=== PATIENT | female | born 1965 | race Caucasian/White ===

== ENCOUNTER 2024-03-05 16:39 | Emergency (ER) | payer OTHER, SELFPAY ==
[2024-03-05 16:46] VITALS: BP 131/83
--- NOTE | 2024-03-05 22:33 | ED.GENMED ---
History of Present Illness
General
Chief Complaint: Musculo-Skeletal Complaint
Source: patient
Time Seen by Provider: 03/05/24 22:13
Travel History
Have you had any contact with someone who has COVID-19?: No
Do you have any symptoms of coronavirus? Fever > 100 degrees, chills, cough, shortness of breath, sore throat, loss of taste or smell, muscle aches, or headache?: No
History of Present Illness
History of Present Illness:
58-year-old female presenting the emergency department for evaluation of bilateral wrist injuries after she tripped on a dog toy onto outstretched hands. Patient states her left wrist is hurting her the most but notes pain and swelling as well as
bruising to the right thumb. Patient is right-hand dominant, no other injuries were sustained.
Past History
Past History
ED Past Medical History: COPD, Hypercholesterolemia and Other (Chronic)
ED Past Surgical History: Orthopedic
Social History
Tobacco: Smoker
Alcohol: Occasional
Drug: None
Living: with family
Review of Systems
Review of Systems
All Other Systems: ROS reviewed and negative except as documented in HPI and ROS
Phy Exam
Physical Exam
Physical Exam:
GENERAL: Alert , in no apparent distress
EYE: conjunctiva clear
Head: Normocephalic atraumatic
NECK: Supple,
ENT: mmm.
LUNGS: no acute respiratory distress
NEUROLOGICAL: Alert and oriented
SKIN: Warm and dry, skin intact.
MUSCULOSKELETAL: Right upper extremity: Pain, edema and ecchymosis towards the thenar eminence and over the anatomical snuffbox. No tenderness over the distal radius/ulna. Easily palpable radial pulse. Cap refill less than 2 seconds. Remainder
of right upper extremities within normal limits. Upper extremity: Deformity over the distal radius but patient also has tenderness over the distal ulna. Easily palpable radial pulse. Cap refill less than 2 seconds and sensation is grossly intact
to light touch. Remainder of extremities with limits.
PSYCH: Normal and appropriate interaction.
Scores
Heart Failure Risk
Heart Failure Risk Score: Not Applicable
Heart Score for Chest Pain Patients
STEMI patient?: Not applicable
Withdrawal Assessment of Alcohol
Withdrawal Assessment Completed?: Not applicable
Course
Orders/Labs/Results
Orders:
Orders
03/05/24 16:48
CR Wrist - Left Min 3 Views Urgent
Comment:
Reason For Exam: injury with deformity
CR Wrist - Right Min 3 Views Urgent
Comment:
Reason For Exam: injury
Vital Signs
Initial and Last Documented VS:
Initial Vital Signs
Temp Pulse Resp BP Pulse Ox
97.7 F 71 16 131/83 96
03/05/24 16:46 03/05/24 16:46 03/05/24 16:46 03/05/24 16:46 03/05/24 16:46
Last Documented Vital Signs
Temp Pulse Resp BP Pulse Ox
97.7 F 71 16 131/83 96
03/05/24 16:46 03/05/24 16:46 03/05/24 16:46 03/05/24 16:46 03/05/24 16:46
Procedures
Splinting/Sling Placement
Right Wrist:
Procedure completed by: Ankur
Pre-splint extermity exam: neurovascular intact
Type of splint: thumb spica
Splint material: other (2 inch Ortho-Glass)
Splint checked by provider?: Yes
Normal distal neurovascular exam?: Yes
Left Wrist:
Procedure completed by: Ankur
Pre-splint extermity exam: neurovascular intact
Type of splint: volar
Splint material: other (3 inch Ortho-Glass)
Splint checked by provider?: Yes
Normal distal neurovascular exam?: Yes
MDM/Problems Addressed
Differential Diagnosis Includes:
Scaphoid fracture, radius and ulnar fracture, sprain, contusion
MDM/Problems Addressed:
58-year-old female presenting the emergency department for evaluation of bilateral hand/wrist injuries and an accidental fall. X-rays were ordered from triage and reveal a right scaphoid fracture and a left distal radius and ulnar fracture.
Patient was placed in a thumb spica and a volar wrist splint. She was provided with information for orthopedics. She declines anything for pain. Stable for discharge and aware of return precautions.
*Radiology
Radiology exam reviewed: preliminary read by ED provider (Right scaphoid fracture, left radius and ulna fracture)
*Pulse Oximetry
Patient hypoxic: no
*Critical Care Note
Total Time (30-74mins, 75-104mins- exclusive of procedures): Not Applicable
ED Attending Note
-
Portions of this chart may have been created with voice recognition software.� Occasional wrong word or��sound alike� substitutions may have occurred due to the inherent limitations of voice recognition software.
Discharge Plan
Departure
Patient Disposition: Home (Routine Discharge)
Date of Disposition: 03/05/24
Time of Disposition: 22:33
Patient with high blood pressure during this ER visit?: No
Discharge Problem:
Closed nondisplaced fracture of scaphoid of right wrist, Distal radius fracture, left, Nondisplaced fracture of styloid process of left ulna
Instructions: Wrist Fracture (DC)
Referrals:
Sony Kelley MD [Active] - (Ortho - Please call for appointment)
Interventions
Interventions:
*Risk Screen - Suicide Last Done: 03/05/24 22:38
*General Assessment Last Done: 03/05/24 22:38
*Neglect/Abuse Screening Last Done: 03/05/24 22:38
*ED COVID-19 Vaccine History Last Done: 03/05/24 22:38
*Nursing Disposition Last Done: 03/05/24 22:43
ED-Musculoskeletal Assessment Last Done: 03/05/24 22:38
Discharge Date and Time
Discharge Date/Time: 03/05/24 22:53
Print Language: TOGOLESE
== END 2024-03-05 22:53 | disposition home or self-care (01) ==
LOC: EMR 16:39
PROVIDERS: EMERGENCY PHYSICIAN Student in an Organized Health Care Education/Training Program; FAMILY PHYSICIAN Family Medicine
DX: S52.501A Unspecified fracture of the lower end of right radius, initial encounter for closed fracture (principal); S52.592A Other fractures of lower end of left radius, initial encounter for closed fracture; S62.001A Unspecified fracture of navicular [scaphoid] bone of right wrist, initial encounter for closed fracture; S52.615A Nondisplaced fracture of left ulna styloid process, initial encounter for closed fracture; W01.0XXA Fall on same level from slipping, tripping and stumbling without subsequent striking against object, initial encounter; F17.200 Nicotine dependence, unspecified, uncomplicated
CPT/HCPCS: 99283; 29125; 73110

== ENCOUNTER 2024-04-30 20:52 | Emergency (ER) | payer OTHER, SELFPAY ==
[2024-04-30 20:54] VITALS: BP 149/83
[2024-04-30 22:19] VITALS: BP 132/82
[2024-04-30 22:25] LABS: % Basophils 0.4 % (0-2); % Eosinophils 0.1 % (0-6); % Immature Granulocytes 0.3 % (0-0.5); % Lymphocytes 38.5 % (20.5-51.1); % Monocytes 4.2 % (1.7-9.3); % Neutrophils 56.5 % (42.2-75.2); Absolute Monocytes 0.3 10^3/uL (0.1-0.6); Absolute Neutrophils 4.4 10^3/uL (1.4-6.5); Hematocrit 39.8 % (37.0-47.0); Hemoglobin 14.3 g/dL (12.0-16.0); Mean Corp Hgb Conc. 35.9 g/dL (33.0-37.0); Mean Corpuscular Hgb 30.8 pg (27.0-31.0); Mean Corpuscular Volume 85.8 fL (81.0-99.0); Nucleated Red Blood Cells % 0 %; Red Blood Cell Count 4.64 10^6/uL (4.20-5.40); Red Cell Dist. Width 14.6 % (11.5-14.5); White Blood Cell Count 7.9 10^3/uL (4.8-10.8)
[2024-04-30 22:37] LABS: ALT (SGPT) 22 U/L (0-35); AST (SGOT) 50 U/L (14-36); Albumin 4.5 g/dl (3.5-5.0); Alkaline Phosphatase 134 U/L (38-126); Blood Urea Nitrogen 7 mg/dl (7-17); Calcium 9.6 mg/dl (8.4-10.2); Carbon Dioxide 22 mmol/L (22-30); Chloride 103 mmol/L (98-107); Glucose 115 mg/dl (70-99); Potassium 3.3 mmol/L (3.5-5.1); Sodium 139 mmol/L (135-145); Total Bilirubin 1.6 mg/dl (0.2-1.3); Total Protein 7.3 g/dl (6.3-8.2); eGFR > 60.00
[2024-04-30 22:38] LABS: Mean Platelet Volume 9.1 fL (7.4-10.4); Platelet Count 91 10^3/uL (130-400)
--- NOTE | 2024-04-30 23:22 | ED.GENMED ---
History of Present Illness
General
Chief Complaint: Medication Reaction
Source: patient
Exam Limitations: none
Time Seen by Provider: 04/30/24 22:46
History of Present Illness
History of Present Illness:
This is a 58 year old female that comes in with c/o headache and dizziness. States that she stopped taking her Seroquel and Venlafaxine 2 days ago on Saturday. States that she stopped them as she feels they are not working. States that her last dose
was on Saturday night. States that she is depressed as she lost her . Denies any suicidal thoughts. States that she has been nauseated, headache and dizziness. Denies any fever, chills, chest pain, SOB, abd pain, vomiting, diarrhea, urinary
burning.
Past History
Past History
ED Past Medical History: COPD, Hypercholesterolemia and Other (Neuropathy, Back pain)
ED Past Surgical History: Gynecological (Cone cervical surgery), Orthopedic (Back surgery, Right foot surgery) and Other (Nasal surgery, )
Social History
Tobacco: Smoker
Alcohol: None
Drug: None
Personal:
Living: alone
Review of Systems
Review of Systems
All Other Systems: ROS reviewed and negative except as documented in HPI and ROS
Constitutional: Reports no symptoms; Denies fever or chills
EENT: Reports no symptoms
Respiratory: Reports no symptoms; Denies cough or trouble breathing
Cardiac: Reports no symptoms; Denies chest pain
ABD/GI: Reports nausea; Denies abdominal pain, vomiting or diarrhea
: Reports no symptoms; Denies dysuria, frequency or urgency
Musculoskeletal: Reports no symptoms
Skin: Reports no symptoms
Neurological: Reports dizzy and headache
Psychiatric: Reports no symptoms
Phy Exam
General Physical Exam
General Presentation: no apparent distress
General age: appears stated age
General Skin: warm and dry
General Habitus: normal
General Mental: alert
General Hydration: appears well hydrated
ENT Exam
ENT Exam: TM's normal, pharynx normal and neck supple
Eye Exam
Eye Exam: EOMI
Cardiovascular Exam
Cardiovascular Exam: regular rate/rhythm, no edema and normal peripheral pulses
Pulmonary Exam
Pulmonary Exam: lungs clear, no respiratory distress, no rales, chest non tender, no crackles, no rhonchi, no wheezing and no cough
Gastrointestinal Exam
Gastrointestinal Exam: normal bowel sounds, non tender, soft, no organomegaly, no pulsatile mass and non distended
Musculoskeletal Exam
Musculoskeletal Exam: full ROM and no edema
Skin Exam
Skin Exam: normal color, warm/dry, no petechia and redness (On the right lower leg due to new tattoo Left is warm to touch)
Psychiatric Exam
Psychiatric Exam: normal mood/affect
Course
Orders/Labs/Results
Orders:
Orders
04/30/24 22:09
Electrocardiogram (*1) Urgent
Reason for Study: Vertigo / Dizzy
EKG- Treatment ONCE
04/30/24 22:10
Complete Blood Count/With Diff Urgent
Comprehensive Metabolic Panel Urgent
04/30/24 23:21
CT Head W/o Iv Contrast Urgent
Comment:
Reason For Exam: Headache, dizziness
Acetaminophen [Tylenol] 1,000 mg PO NOW STA
Ketorolac [Toradol] 30 mg IV NOW STA
04/30/24 23:23
Cephalexin Monohydrate [Keflex] 500 mg PO NOW STA
Abnormal Lab Results
04/30/24
22:10
RDW 14.6 H %
(11.5-14.5)
Plt Count 91 L 10^3/uL
(130-400)
Potassium 3.3 L mmol/L
(3.5-5.1)
Glucose 115 H mg/dl
(70-99)
Total Bilirubin 1.6 H mg/dl
(0.2-1.3)
AST 50 H U/L
(14-36)
Alkaline Phosphatase 134 H U/L
(38-126)
04/30/24 22:10
04/30/24 22:10
Plt slightly low. Glucose nonfasting. Hypokalemia, Total alfredito slightly elevated. AST elevation. ALk phos slightly elevated.
Vital Signs
Initial and Last Documented VS:
Initial Vital Signs
Temp Pulse Resp BP Pulse Ox
98.1 F 98 16 149/83 98
04/30/24 20:54 04/30/24 20:54 04/30/24 20:54 04/30/24 20:54 04/30/24 20:54
Last Documented Vital Signs
Temp Pulse Resp BP Pulse Ox
98.1 F 75 16 132/82 98
04/30/24 20:54 04/30/24 22:19 04/30/24 22:19 04/30/24 22:19 04/30/24 22:19
MDM/Problems Addressed
Differential Diagnosis Includes:
Medication reaction. CVA,
MDM/Problems Addressed:
This is a 58 year old female that comes in with c/o stopping her medication on Saturday. states that her last dose was on Saturday night. states that she stopped them as she did not feel that they were working.
Will check labs, CT head and medicate for headache pain.
back into see patient. Explained that her CT of the head is normal. Blood work shows that her Potassium is slightly low so will give dose of Potassium and encouraged patient to eat some banana's. Patient to follow up with the her Psychiatrist for
further evaluation and to discussed her medication. Will also give patient a Prescription for Keflex to help with the redness of the right lower leg. Patient to return with fever, increased redness or any other concerns.
Chronic conditions affecting care: Psychiatric illness
Acute Exacerbation and/or Progression of Chronic Illness: Psychiatric illness
*Radiology
Radiology exam reviewed: radiology read reviewed (Head CT- No evidence for acute intracranial process. Mild left mastoid air cell opacity. )
*Pulse Oximetry
Patient hypoxic: no
*EKG
Interpreted by ED Provider?: NA
Rate: EKG- N/A
*Meat Team Lead Interpretation
Rate: Meat Team Lead- N/A
*Critical Care Note
Total Time (30-74mins, 75-104mins- exclusive of procedures): Not Applicable
ED Attending Note
-
Portions of this chart may have been created with voice recognition software.� Occasional wrong word or��sound alike� substitutions may have occurred due to the inherent limitations of voice recognition software.
Discharge Plan
Departure
Patient Disposition: Home (Routine Discharge)
Date of Disposition: 05/01/24
Time of Disposition: 01:21
Patient with high blood pressure during this ER visit?: Yes
Condition: Good
Covid-19: Not Applicable
Discharge Problem:
Headache, Cellulitis
Instructions: Headache, Adult ED, Cellulitis (Skin Infection), Adult ED, BLOOD PRESSURE
Prescriptions:
New
cephalexin 500 mg capsule
500 mg PO BID 7 Days Qty: 14 0RF
Referrals:
Abe Davis, [Family Provider] - Follow up in 2-3 days
Activity Restrictions/Additional Instructions:
As discussed, your CT of the head is normal. Your blood work shows that your potassium is a little low. You have been given potassium here and you need to eat a banana daily. Please follow up with the your family doctor and your Psychiatrist and
discuss your Medication change. Please increase your water intake to 8-8oz glasses daily. You have also been given a prescription for the slight Cellulitis of the right lower leg. This has been sent to your Pharmacy. Please take as directed. IF YOU
HAVE ANY OTHER CONCERNS PLEASE RETURN TO THE EMERGENCY ROOM.
Interventions
Interventions:
*General Assessment Last Done: 04/30/24 20:54
ED-Skin Assessment Last Done: 04/30/24 22:19
ED- Pulmonary Assessment Last Done: 04/30/24 22:19
ED-EENT Assessment Last Done: 04/30/24 22:19
Discharge Date and Time
Print Language: CHADIAN
[2024-05-01] MEDS: TORADOL 30 MG IV (00:08)
[2024-05-01] MEDS: TYLENOL 1000 MG PO (00:09)
[2024-05-01] MEDS: KEFLEX 500 MG PO (00:09)
[2024-05-01] MEDS: KLOR-CON 20 MEQ PO (01:29)
[2024-05-01 01:30] VITALS: BP 117/73
== END 2024-05-01 01:37 | disposition home or self-care (01) ==
LOC: EMR 20:52
PROVIDERS: Emergency Medicine; EMERGENCY PHYSICIAN Emergency Medicine; FAMILY PHYSICIAN Family Medicine
DX: R51.9 Headache, unspecified (principal); R42 Dizziness and giddiness; R11.0 Nausea; L03.115 Cellulitis of right lower limb; R03.0 Elevated blood-pressure reading, without diagnosis of hypertension; E87.6 Hypokalemia; J44.9 Chronic obstructive pulmonary disease, unspecified; Z91.128 Patient's intentional underdosing of medication regimen for other reason; G62.9 Polyneuropathy, unspecified; E78.00 Pure hypercholesterolemia, unspecified; Z63.4 Disappearance and death of family member; F32.A Depression, unspecified; F17.200 Nicotine dependence, unspecified, uncomplicated
CPT/HCPCS: 99284; 96374; 70450; 80053; 85025; 93005

== ENCOUNTER 2024-06-29 22:56 | Emergency (ER) | payer OTHER, SELFPAY ==
[2024-06-29 22:58] VITALS: BP 144/88
[2024-06-30] VITALS (10 sets, daily range): BP systolic 88–136; BP diastolic 49–86; BMI 22.0
[2024-06-30 02:00] LABS: % Basophils 0.8 % (0-2); % Eosinophils 0.2 % (0-6); % Immature Granulocytes 0.3 % (0-0.5); % Lymphocytes 45.3 % (20.5-51.1); % Monocytes 7.3 % (1.7-9.3); % Neutrophils 46.1 % (42.2-75.2); Absolute Basophils 0.1 10^3/uL (0-0.2); Absolute Lymphocytes 2.9 10^3/uL (1.2-3.4); Absolute Monocytes 0.5 10^3/uL (0.1-0.6); Hematocrit 42.1 % (37.0-47.0); Hemoglobin 15.1 g/dL (12.0-16.0); Mean Corp Hgb Conc. 35.9 g/dL (33.0-37.0); Mean Corpuscular Hgb 31.5 pg (27.0-31.0); Mean Corpuscular Volume 87.7 fL (81.0-99.0); Mean Platelet Volume 9.9 fL (7.4-10.4); Nucleated Red Blood Cells % 0 %; Platelet Count 85 10^3/uL (130-400); Red Cell Dist. Width 16.9 % (11.5-14.5); White Blood Cell Count 6.5 10^3/uL (4.8-10.8)
[2024-06-30 02:05] LABS: Blood Urea Nitrogen 12 mg/dl (7-17); Calcium 8.7 mg/dl (8.4-10.2); Carbon Dioxide 19 mmol/L (22-30); Chloride 107 mmol/L (98-107); Estimated Creatinine Clearance 121 ml/min; Glucose 104 mg/dl (70-99); Sodium 144 mmol/L (135-145); eGFR > 60.00
[2024-06-30 02:09] LABS: Alcohol 381 mg/dl
[2024-06-30] MEDS: NSS 1000 IV (02:20)
[2024-06-30] MEDS: TYLENOL 1000 MG PO (02:34)
--- NOTE | 2024-06-30 02:39 | ED.GENMED ---
History of Present Illness
<Eusebio Ba MD - Last Filed: 06/30/24 02:41>
General
Chief Complaint: Alcohol Problem
Source: patient
Exam Limitations: none
Time Seen by Provider: 06/30/24 02:05
History of Present Illness
History of Present Illness:
Patient called the police to bring her in for help for her depression and alcohol use. Chronic alcohol issues. Has required help in the past. States she she is very depressed and sees no reason to live although she has no plan or intent at this
time. She states she would not kill herself. No acute withdrawal symptoms. Drinks about 1/5 of vodka a day
Past History
<Eusebio Ba MD - Last Filed: 06/30/24 02:41>
Past History
ED Past Medical History: COPD, Hypercholesterolemia and Other (Neuropathy, Back pain)
ED Past Surgical History: Gynecological (Cone cervical surgery), Orthopedic (Back surgery, Right foot surgery) and Other (Nasal surgery, )
Social History
Tobacco: Smoker
Alcohol: None
Drug: None
Personal:
Living: alone
Review of Systems
<Eusebio Ba MD - Last Filed: 06/30/24 02:41>
Review of Systems
All Other Systems: Not applicable
Respiratory: Reports no symptoms
Cardiac: Reports no symptoms
Phy Exam
<Eusebio Ba MD - Last Filed: 06/30/24 02:41>
Physical Exam
Physical Exam:
GENERAL: Alert and oriented in no apparent distress. Mildly intoxicated. No trauma
EYE: Orbits normal.
NECK: Supple
CARDIAC: Regular rate and rhythm without any obvious murmurs.
LUNGS: Clear breath sounds,normal
ABDOMEN: Soft, without focal tenderness or distention
NEUROLOGICAL: Alert and oriented , grossly non-focal. Mildly intoxicated
SKIN: Warm and dry, no rash or lesion, no discoloration, skin intact.
MUSCULOSKELETAL: No edema,no deformity.Good color
PSYCH: Normal and appropriate interaction. Cooperative
Scores
<Spencer Bernard DO - Last Filed: 06/30/24 06:09>
Withdrawal Assessment of Alcohol
Withdrawal Assessment Completed?: No
Course
<Eusebio Ba MD - Last Filed: 06/30/24 02:41>
Orders/Labs/Results
Orders:
Orders
06/29/24 23:03
Alcohol Urgent
Complete Blood Count/With Diff Urgent
06/30/24 01:40
Basic Metabolic Panel Urgent
Comment: NO K
06/30/24 02:12
0.9% Sodium Chloride 1000 ml [Nss] 1,000 ml IV BOLUS
06/30/24 02:13
Crisis Consult Urgent
Reason for Consult: depression/etoh alcohol
06/30/24 02:33
Acetaminophen [Tylenol] 1,000 mg .ROUTE .STK-MED ONE
Acetaminophen [Tylenol] 1,000 mg PO NOW STA
06/30/24 04:05
Ketorolac [Toradol] 30 mg IV NOW STA
Abnormal Lab Results
06/30/24
01:40
MCH 31.5 H pg
(27.0-31.0)
RDW 16.9 H %
(11.5-14.5)
Plt Count 85 L 10^3/uL
(130-400)
Carbon Dioxide 19 L mmol/L
(22-30)
Glucose 104 H mg/dl
(70-99)
06/30/24 01:40
06/30/24 01:40
Vital Signs
Initial and Last Documented VS:
Initial Vital Signs
Temp Pulse Resp BP Pulse Ox
98.1 F 94 22 144/88 97
06/29/24 22:58 06/29/24 22:58 06/29/24 22:58 06/29/24 22:58 06/29/24 22:58
Last Documented Vital Signs
Temp Pulse Resp BP Pulse Ox
97.9 F 69 18 101/57 93
06/30/24 02:17 06/30/24 05:04 06/30/24 05:04 06/30/24 05:04 06/30/24 04:00
<Spencer Bernard, DO - Last Filed: 06/30/24 06:09>
Orders/Labs/Results
Orders:
Orders
06/29/24 23:03
Alcohol Urgent
Complete Blood Count/With Diff Urgent
06/30/24 01:40
Basic Metabolic Panel Urgent
Comment: NO K
06/30/24 02:12
0.9% Sodium Chloride 1000 ml [Nss] 1,000 ml IV BOLUS
06/30/24 02:13
Crisis Consult Urgent
Reason for Consult: depression/etoh alcohol
06/30/24 02:33
Acetaminophen [Tylenol] 1,000 mg .ROUTE .STK-MED ONE
Acetaminophen [Tylenol] 1,000 mg PO NOW STA
06/30/24 04:05
Ketorolac [Toradol] 30 mg IV NOW STA
Abnormal Lab Results
06/30/24
01:40
MCH 31.5 H pg
(27.0-31.0)
RDW 16.9 H %
(11.5-14.5)
Plt Count 85 L 10^3/uL
(130-400)
Carbon Dioxide 19 L mmol/L
(22-30)
Glucose 104 H mg/dl
(70-99)
06/30/24 01:40
06/30/24 01:40
Vital Signs
Initial and Last Documented VS:
Initial Vital Signs
Temp Pulse Resp BP Pulse Ox
98.1 F 94 22 144/88 97
06/29/24 22:58 06/29/24 22:58 06/29/24 22:58 06/29/24 22:58 06/29/24 22:58
Last Documented Vital Signs
Temp Pulse Resp BP Pulse Ox
97.9 F 69 18 101/57 93
06/30/24 02:17 06/30/24 05:04 06/30/24 05:04 06/30/24 05:04 06/30/24 04:00
<Eusebio Ba MD - Last Filed: 06/30/24 02:41>
MDM/Problems Addressed
Differential Diagnosis Includes:
Patient chronic alcohol abuse along with depression. Not currently suicidal and has no intent or plan. Will give IV fluids. Referred over to crisis. 201 at this time. No indication for psychiatric committal at this time
<Eusebio Ba MD - Last Filed: 06/30/24 02:41>
*Pulse Oximetry
Patient hypoxic: no
<Spencer Bernard DO - Last Filed: 06/30/24 06:09>
*Critical Care Note
Total Time (30-74mins, 75-104mins- exclusive of procedures): Not Applicable
<Spencer Bernard DO - Last Filed: 06/30/24 06:09>
Update Note
Update Note:
6 AM, reviewed with crisis patient accepted to [facility] at 10 AM pickup
ED Attending Note
<Eusebio Ba MD - Last Filed: 06/30/24 02:41>
-
Portions of this chart may have been created with voice recognition software.� Occasional wrong word or��sound alike� substitutions may have occurred due to the inherent limitations of voice recognition software.
Discharge Plan
Departure
Patient Disposition: Psych Facility
Date of Disposition: 06/30/24
Time of Disposition: 06:09
Patient with high blood pressure during this ER visit?: No
Condition: Good
Discharge Problem:
Depression/alcohol use disorder
Prescriptions:
No Action
cephalexin 500 mg capsule
500 mg PO BID 7 Days Qty: 14 0RF
Referrals:
Abe Davis DO [Family Provider] -
Interventions
Interventions:
*Risk Screen - Suicide Last Done: 06/29/24 22:58
*General Assessment Last Done: 06/30/24 01:47
*Neglect/Abuse Screening Last Done: 06/29/24 22:58
*ED COVID-19 Vaccine History Last Done: 06/30/24 01:47
ED- Neurological Assessment Last Done: 06/30/24 01:47
ED-Psychological Assessment Last Done: 06/30/24 01:47
Discharge Date and Time
Print Language: CROATIAN
[2024-06-30] MEDS: TORADOL 30 MG IV (04:11)
[2024-06-30] MEDS: ZOFRAN ODT (ORALLY DISINTEGRATING) 4 MG PO (08:48)
[2024-06-30] MEDS: LYRICA 100 MG PO (10:02)
== END 2024-06-30 10:43 ==
LOC: EMR 22:56
PROVIDERS: EMERGENCY PHYSICIAN Emergency Medicine; FAMILY PHYSICIAN Family Medicine
DX: F10.10 Alcohol abuse, uncomplicated (principal); F32.A Depression, unspecified; J44.9 Chronic obstructive pulmonary disease, unspecified; E78.00 Pure hypercholesterolemia, unspecified; G62.9 Polyneuropathy, unspecified; M54.9 Dorsalgia, unspecified; F17.200 Nicotine dependence, unspecified, uncomplicated
CPT/HCPCS: 99285; 96374; 96361; 80048; 82077; 85025

== ENCOUNTER 2025-10-17 23:10 | Inpatient (IN) | payer MEDICARE, OTHER, SELFPAY ==
[2025-10-17] VITALS (7 sets, daily range): BP systolic 94–133; BP diastolic 66–81; BMI 22.4
[2025-10-17 19:34] LABS: Hematocrit 46.0 % (37.0-47.0); Hemoglobin 16.3 g/dL (12.0-16.0); Mean Corp Hgb Conc. 35.4 g/dL (33.0-37.0); Mean Corpuscular Volume 89.1 fL (81.0-99.0); Nucleated Red Blood Cells % 0.2 %; Platelet Count 193 10^3/uL (130-400); Red Cell Dist. Width 16.1 % (11.5-14.5)
[2025-10-17 19:36] LABS: INR 1.60; PT 19.2 Sec (11.4-14.6)
[2025-10-17 19:42] LABS: COVID-19 Antigen Negative (Negative)
--- NOTE | 2025-10-17 19:46 | ED.GENMED ---
History of Present Illness
<Hanane Lee NP - Last Filed: 10/18/25 00:27>
General
Chief Complaint: Cold/Flu/URI Symptoms
Source: patient
Exam Limitations: none
Time Seen by Provider: 10/17/25 19:01
Nursing documentation reviewed up to this point in time: agreed with
History of Present Illness
History of Present Illness:
Patient to the emergency department with complaint of nausea vomiting abdominal pain. Symptoms started 1 to 2 days ago. She reports epigastric pain, increased after vomiting. She denies any shortness of breath. She denies any prior history of
same. She was brought to the emergency department via EMS for evaluation. She denies fever or chills. She denies any sick contacts. She has a history of alcohol abuse. Her last drink was Saturday.
Past History
<Hanane Lee NP - Last Filed: 10/18/25 00:27>
Past History
ED Past Medical History: COPD, Hypercholesterolemia and Other (Neuropathy, Back pain)
ED Past Surgical History: Gynecological (Cone cervical surgery), Orthopedic (Back surgery, Right foot surgery) and Other (Nasal surgery, )
Social History
Tobacco: Smoker
Alcohol: None
Drug: None
Personal:
Living: alone
Review of Systems
<Hanane Lee SENIOR ELECTRICAL DESIGNER - Last Filed: 10/18/25 00:27>
Review of Systems
Allergies reviewed?: Yes
All Other Systems: ROS reviewed and negative except as documented in HPI and ROS
Constitutional: Reports no symptoms
EENT: Reports no symptoms
Respiratory: Reports cough
Cardiac: Reports no symptoms
ABD/GI: Reports abdominal pain, nausea, vomiting and anorexia
: Reports no symptoms
Musculoskeletal: Reports no symptoms
Skin: Reports no symptoms
Neurological: Reports weakness
Psychiatric: Reports no symptoms
Phy Exam
<Hanane Lee SENIOR ELECTRICAL DESIGNER - Last Filed: 10/18/25 00:27>
General Physical Exam
General Presentation: moderate distress
General age: appears stated age
General Skin: warm and dry
General Habitus: normal
General Mental: alert
General Hydration: dry mucous membranes
Cardiovascular Exam
Cardiovascular Exam: no edema and tachycardia
Pulmonary Exam
Pulmonary Exam: lungs clear and no respiratory distress
Gastrointestinal Exam
Gastrointestinal Exam: normal bowel sounds, no organomegaly, no pulsatile mass, non distended and no cva tenderness
Palpation: left upper quadrant: Moderate tenderness, left lower quadrant: No tenderness, right upper quadrant: Moderate tenderness and right lower quadrant: No tenderness
Musculoskeletal Exam
Musculoskeletal Exam: full ROM and neuro vasc intact
Skin Exam
Skin Exam: normal color, warm/dry and no rash
Psychiatric Exam
Psychiatric Exam: normal mood/affect
Sepsis
<Hanane Lee SENIOR ELECTRICAL DESIGNER - Last Filed: 10/18/25 00:27>
Sepsis Screening
Sepsis Assessment: Sepsis
Sepsis Screen
Sepsis Screen: Sepsis
Date: 10/18/25
Time: 00:26
Course
<Hanane Lee SENIOR ELECTRICAL DESIGNER - Last Filed: 10/18/25 00:27>
Orders/Labs/Results
Orders:
Orders
10/17/25 18:57
EKG [Electrocardiogram (*1)] Urgent
Reason for Study: Chest Pain
10/17/25 18:58
EKG- Treatment ONCE
10/17/25 19:19
COVID-19 Antigen Urgent
Source: Nasal Swab
Complete Blood Count/With Diff Urgent
Prothrombin Time Urgent
Influenza A+B Rapid Molecular Urgent
DIAMANTE Source: Nasal Swab
Specimen Description:
10/17/25 19:45
Lorazepam [Ativan] 1 mg IV NOW STA
Lorazepam [Ativan] 2 mg .ROUTE .STK-MED ONE
Ondansetron Injectable [Zofran] 4 mg .ROUTE .STK-MED ONE
Ondansetron Injectable [Zofran] 4 mg IV NOW STA
10/17/25 19:46
CT Abd/pel Without Iv Or Oral Urgent
Reason For Exam: abd pain vomiting
10/17/25 19:48
CR Chest - 2 Views Urgent
Comment:
Reason For Exam: cough
10/17/25 19:52
Alcohol Urgent
Comprehensive Metabolic Panel Urgent
Lipase Urgent
Comment: ADD ON
Magnesium Urgent
Comment: ADD ON
Phosphorus Urgent
Comment: ADD ON
Troponin I Urgent
10/17/25 20:00
EKG [Electrocardiogram (*1)] Urgent
Reason for Study: Chest Pain
EKG- Treatment ONCE
10/17/25 20:22
Add On- LAB Urgent
Tests Added?: lipase
10/17/25 20:26
Potassium Chloride [KCl] 40 meq 0.9% Sodium Chloride 250 ml [Nss] 250 ml IV NOW
10/17/25 21:06
Lactic Acid Urgent
10/17/25 21:17
Pantoprazole [Protonix IV] 40 mg IV NOW STA
10/17/25 21:47
0.9% Sodium Chloride 1000 ml [Nss] 1,000 ml IV BOLUS
10/17/25 22:15
Lorazepam [Ativan] 1 mg IV NOW STA
10/17/25 22:16
GASTROINTESTINAL CONSULT Urgent
Consulting Provider: Luz Elena Ashley
Was physician already notified: Yes
10/17/25 22:21
Add On- LAB Urgent
Tests Added?: ETOH
10/17/25 22:45
Add On- LAB Urgent
Tests Added?: magnesium, phosphorus
10/17/25 22:56
Piperacillin/Tazo 2.25 Gram [Zosyn] 2.25 grams in 50 ml IV NOW
10/17/25 22:57
Admit/Transfer Patient As Directed
Co-Sign Provider:
Level of Care: Inpatient admission
Assign to:: IMU- Intermediate Care
Physician / Group: milad thompson
Diagnosis: sepsis 2/2 obstru pancreatic mass/rama/hypoK,etoh a.trop shane
Reason for Hospitalization: sepsis 2/2 obstru pancreatic mass/rama/hypoK,etoh a.trop shane
Expected length of stay greater than two midnights?: Yes
ELOS- Estimated Length of Stay in days: 5
I certify the patient meets the requirements for IP care: Yes
Code Status As Directed
Resuscitation Status: Full Code
10/17/25 23:00
0.9% Sodium Chloride 1000 ml [Nss] 1,000 ml IV 1,000 mls/hr
10/17/25 23:01
PRN Pain Medication Management As Directed
May give lesser potent ordered pain med per pt: Yes
preference::
Protocol:: Medication orders for pain may be administered in a
manner that supports deferring to patient preference
when the pt is:
- Requesting an ordered lesser potent pain medication.
Least to most potent pain medications are defined
as: acetaminophen < NSAID < tramadol < opioids
(morphine, oxycodone, hydromorphone).
- Requesting a lesser dose of the same medication IF
ORDERED.
- Requesting a less intrusive route of administration
if both routes are prescribed by the provider (PO <
IV).
Abnormal Lab Results
10/17/25 10/17/25 10/17/25
19:19 19:52 21:06
WBC 19.6 H 10^3/uL
(4.8-10.8)
Hgb 16.3 H g/dL
(12.0-16.0)
MCH 31.6 H pg
(27.0-31.0)
RDW 16.1 H %
(11.5-14.5)
MPV 10.5 H fL
(7.4-10.4)
Abs Immat Gran (auto) 0.1 H 10^3/uL
(0-0.05)
Absolute Neuts (auto) 16.2 H 10^3/uL
(1.4-6.5)
Absolute Monos (auto) 1.3 H 10^3/uL
(0.1-0.6)
Neutrophils % 82.5 H %
(42.2-75.2)
Lymphocytes % 9.9 L %
(20.5-51.1)
PT 19.2 H Sec
(11.4-14.6)
Sodium 133 L mmol/L
(135-145)
Potassium 2.4 L* mmol/L
(3.5-5.1)
Chloride 78 L mmol/L
(98-107)
Carbon Dioxide 36 H mmol/L
(22-30)
BUN 38 H mg/dl
(7-17)
Creatinine 1.9 H mg/dL
(0.6-1.0)
Glucose 145 H mg/dl
(70-99)
Lactic Acid 3.2 H mmol/L
(0.7-2.0)
Total Bilirubin 6.3 H mg/dl
(0.2-1.3)
AST 172 H U/L
(14-36)
ALT 50 H U/L
(0-35)
Alkaline Phosphatase 154 H U/L
(38-126)
Troponin I 0.083 H* ng/ml
Total Protein 8.4 H g/dl
(6.3-8.2)
10/17/25 19:19
10/17/25 19:52
Vital Signs
Initial and Last Documented VS:
Initial Vital Signs
Pulse Resp Pulse Ox
138 17 99
10/17/25 19:05 10/17/25 19:05 10/17/25 19:05
Last Documented Vital Signs
Temp Pulse Resp BP Pulse Ox
98.4 F 109 23 121/75 91
10/17/25 19:06 10/18/25 00:15 10/18/25 00:15 10/18/25 00:00 10/18/25 00:15
<Juan M Martínez, DO - Last Filed: 10/17/25 23:46>
Orders/Labs/Results
Orders:
Orders
10/17/25 18:57
EKG [Electrocardiogram (*1)] Urgent
Reason for Study: Chest Pain
10/17/25 18:58
EKG- Treatment ONCE
10/17/25 19:19
COVID-19 Antigen Urgent
Source: Nasal Swab
Complete Blood Count/With Diff Urgent
Prothrombin Time Urgent
Influenza A+B Rapid Molecular Urgent
DIAMANTE Source: Nasal Swab
Specimen Description:
10/17/25 19:45
Lorazepam [Ativan] 1 mg IV NOW STA
Lorazepam [Ativan] 2 mg .ROUTE .STK-MED ONE
Ondansetron Injectable [Zofran] 4 mg .ROUTE .STK-MED ONE
Ondansetron Injectable [Zofran] 4 mg IV NOW STA
10/17/25 19:46
CT Abd/pel Without Iv Or Oral Urgent
Reason For Exam: abd pain vomiting
10/17/25 19:48
CR Chest - 2 Views Urgent
Comment:
Reason For Exam: cough
10/17/25 19:52
Alcohol Urgent
Comprehensive Metabolic Panel Urgent
Lipase Urgent
Comment: ADD ON
Magnesium Urgent
Comment: ADD ON
Phosphorus Urgent
Comment: ADD ON
Troponin I Urgent
10/17/25 20:00
EKG [Electrocardiogram (*1)] Urgent
Reason for Study: Chest Pain
EKG- Treatment ONCE
10/17/25 20:22
Add On- LAB Urgent
Tests Added?: lipase
10/17/25 20:26
Potassium Chloride [KCl] 40 meq 0.9% Sodium Chloride 250 ml [Nss] 250 ml IV NOW
10/17/25 21:06
Lactic Acid Urgent
10/17/25 21:17
Pantoprazole [Protonix IV] 40 mg IV NOW STA
10/17/25 21:47
0.9% Sodium Chloride 1000 ml [Nss] 1,000 ml IV BOLUS
10/17/25 22:15
Lorazepam [Ativan] 1 mg IV NOW STA
10/17/25 22:16
GASTROINTESTINAL CONSULT Urgent
Consulting Provider: Luz Elena Ashley
Was physician already notified: Yes
10/17/25 22:21
Add On- LAB Urgent
Tests Added?: ETOH
10/17/25 22:45
Add On- LAB Urgent
Tests Added?: magnesium, phosphorus
10/17/25 22:56
Piperacillin/Tazo 2.25 Gram [Zosyn] 2.25 grams in 50 ml IV NOW
10/17/25 22:57
Admit/Transfer Patient As Directed
Co-Sign Provider:
Level of Care: Inpatient admission
Assign to:: IMU- Intermediate Care
Physician / Group: milad thompson
Diagnosis: sepsis 2/2 obstru pancreatic mass/rama/hypoK,etoh a.trop shane
Reason for Hospitalization: sepsis 2/2 obstru pancreatic mass/rama/hypoK,etoh a.trop shane
Expected length of stay greater than two midnights?: Yes
ELOS- Estimated Length of Stay in days: 5
I certify the patient meets the requirements for IP care: Yes
Code Status As Directed
Resuscitation Status: Full Code
10/17/25 23:00
0.9% Sodium Chloride 1000 ml [Nss] 1,000 ml IV 1,000 mls/hr
10/17/25 23:01
PRN Pain Medication Management As Directed
May give lesser potent ordered pain med per pt: Yes
preference::
Protocol:: Medication orders for pain may be administered in a
manner that supports deferring to patient preference
when the pt is:
- Requesting an ordered lesser potent pain medication.
Least to most potent pain medications are defined
as: acetaminophen < NSAID < tramadol < opioids
(morphine, oxycodone, hydromorphone).
- Requesting a lesser dose of the same medication IF
ORDERED.
- Requesting a less intrusive route of administration
if both routes are prescribed by the provider (PO <
IV).
Abnormal Lab Results
10/17/25 10/17/25 10/17/25
19:19 19:52 21:06
WBC 19.6 H 10^3/uL
(4.8-10.8)
Hgb 16.3 H g/dL
(12.0-16.0)
MCH 31.6 H pg
(27.0-31.0)
RDW 16.1 H %
(11.5-14.5)
MPV 10.5 H fL
(7.4-10.4)
Abs Immat Gran (auto) 0.1 H 10^3/uL
(0-0.05)
Absolute Neuts (auto) 16.2 H 10^3/uL
(1.4-6.5)
Absolute Monos (auto) 1.3 H 10^3/uL
(0.1-0.6)
Neutrophils % 82.5 H %
(42.2-75.2)
Lymphocytes % 9.9 L %
(20.5-51.1)
PT 19.2 H Sec
(11.4-14.6)
Sodium 133 L mmol/L
(135-145)
Potassium 2.4 L* mmol/L
(3.5-5.1)
Chloride 78 L mmol/L
(98-107)
Carbon Dioxide 36 H mmol/L
(22-30)
BUN 38 H mg/dl
(7-17)
Creatinine 1.9 H mg/dL
(0.6-1.0)
Glucose 145 H mg/dl
(70-99)
Lactic Acid 3.2 H mmol/L
(0.7-2.0)
Total Bilirubin 6.3 H mg/dl
(0.2-1.3)
AST 172 H U/L
(14-36)
ALT 50 H U/L
(0-35)
Alkaline Phosphatase 154 H U/L
(38-126)
Troponin I 0.083 H* ng/ml
Total Protein 8.4 H g/dl
(6.3-8.2)
10/17/25 19:19
10/17/25 19:52
Vital Signs
Initial and Last Documented VS:
Initial Vital Signs
Pulse Resp Pulse Ox
138 17 99
10/17/25 19:05 10/17/25 19:05 10/17/25 19:05
Last Documented Vital Signs
Temp Pulse Resp BP Pulse Ox
98.4 F 109 23 121/75 91
10/17/25 19:06 10/18/25 00:15 10/18/25 00:15 10/18/25 00:00 10/18/25 00:15
<Hanane Lee NP - Last Filed: 10/18/25 00:27>
*Pulse Oximetry
SaO2: 98
Oxygen Mode of Delivery: Room air
Patient hypoxic: no
*Critical Care Note
Total Time (30-74mins, 75-104mins- exclusive of procedures): Not Applicable
<Hanane Lee NP - Last Filed: 10/18/25 00:27>
Update Note
Update Note:
Patient to the emergency department with complaint of severe nausea vomiting and upper abdominal pain. She reports symptoms started 1 to 2 days ago. She has a history of chronic alcohol abuse. She reports that her last drink was on Saturday. She
states since then she has not been able to keep anything down. She denies any fever or chills. On arrival patient is hypotensive (90's/40's), tachycardic (150's), afebrile. Labs reviewed. WBC of 19.6 noted. Lactic 3.2. No infectious source
identified. IV fluids infusing. Sodium 133, potassium 2.4. She was given a liter normal saline. K rider initiated. BUN of 38 creatinine 1.9. LFTs elevated. T. bili 6.3, AST/ALT 172/50. CT of abdomen and pelvis was obtained unable to do
contrast due to poor kidney function. Suspected obstructing pancreatic head mass with associated biliary and pancreatic ductal dilatation questionable choledocholithiasis. Suspected esophagitis (pantoprazole initiated). Patient to be admitted to
the hospitalist service. Case discussed with Dr. Martínez who also evaluated this patient. He agrees with findings and plan. Dr. Ashley consulted will follow in AM.
ED Attending Note
<Hanane Lee NP - Last Filed: 10/18/25 00:27>
-
Portions of this chart may have been created with voice recognition software.� Occasional wrong word or��sound alike� substitutions may have occurred due to the inherent limitations of voice recognition software.
<Juan M Martínez, DO - Last Filed: 10/17/25 23:46>
ED Attending Note
Patient seen and examined by attending physician: Yes
I performed the substantive portion of visit, reviewed & personally made and approve the management plan that is documented in note by myself or TYESHA.: Yes
ED Attending Note:
I have seen and evaluated the patient with a [id number] encounter. I have spoken to the advance practicer provider and involved in the medical history, the physical exam, medical decision making.
Evaluation and management service: agree unless noted differently below.
Results interpretation: agree unless noted differently below.
Focused HPI: 60-year-old female presenting with abdominal pain and nausea.
Physical exam: Ill-appearing, tachycardic, mid upper abdominal pain
Medical Decision Making: CT concerning for pancreatic positive biliary dilation. Patient does not have lab abnormalities including hypokalemia and elevated creatinine. Patient also found to have an elevated troponin but no ST elevation noted on
EKG. It is unsure if this is related to the creatinine. Regardless, GI made aware and will admit for pain control and further workup
Discharge Plan
Departure
Patient Disposition: Admit
Date of Disposition: 10/17/25
Time of Disposition: 21:47
Presentation/result/management discussed w/ accepting MD/DO: Hospitalist
Condition: Fair
Covid-19: Not Applicable
Discharge Problem:
Mass of head of pancreas, RAMA (acute kidney injury), Acute hyponatremia, Hypokalemia
Interventions
Interventions:
*Risk Screen - Suicide Last Done: 10/17/25 19:06
*General Assessment Last Done: 10/17/25 19:06
*Neglect/Abuse Screening Last Done: 10/17/25 19:06
*ED COVID-19 Vaccine History Last Done: 10/17/25 19:06
*ED Influenza Vaccine History Last Done: 10/17/25 19:06
[facility] Fall Risk Assessment Tool Last Done: 10/17/25 19:06
ED- Cardiac Assessment Last Done: 10/17/25 19:06
ED- Pulmonary Assessment Last Done: 10/17/25 19:06
[2025-10-17] MEDS: ZOFRAN 4 MG IV (19:48)
[2025-10-17] MEDS: ATIVAN 1 MG IV ×2 (19:48→22:46)
[2025-10-17 20:16] LABS: AST (SGOT) 172 U/L (14-36); Albumin 4.6 g/dl (3.5-5.0); Alkaline Phosphatase 154 U/L (38-126); Blood Urea Nitrogen 38 mg/dl (7-17); Calcium 9.9 mg/dl (8.4-10.2); Carbon Dioxide 36 mmol/L (22-30); Chloride 78 mmol/L (98-107); Estimated Creatinine Clearance 37 ml/min; Glucose 145 mg/dl (70-99); Potassium 2.4 mmol/L (3.5-5.1); Sodium 133 mmol/L (135-145); Total Protein 8.4 g/dl (6.3-8.2); eGFR 30.23
[2025-10-17 20:21] LABS: ALT (SGPT) 50 U/L (0-35)
[2025-10-17 20:26] LABS: Troponin I 0.083 ng/ml
[2025-10-17] MEDS: KCL 270 MEQ IV (20:34)
[2025-10-17 20:40] LABS: Lipase 195 U/L (23-300)
[2025-10-17] MEDS: PROTONIX IV 40 MG IV (21:23)
[2025-10-17] MEDS: NSS 1000 IV ×2 (21:52→23:07)
--- NOTE | 2025-10-17 22:13 | HPS.HSE ---
Addendum entered and electronically signed by Aj Sands DO 10/17/25 23:25:
Patient seen and examined independently. Agree with findings and plan as set forth by KINSEY Lopez.
Patient is a 60y F with PMH significant for chronic alcohol use disorder, anxiety / depression who presents to ED complaining of burning chest discomfort, N/V x 4 days. Patient reports multiple similar episodes in the past. She drinks two
bottles of vodka per week on average. Last drink was Saturday. Patient is tearful / distressed in the ED. She notes that her from pancreatic cancer.
Ass:
Pancreatic Head Mass
Biliary Ductal Dilation
Ascending Cholangitis / Sepsis
Lactic Acidosis
Hypokalemia
RAMA
GERD / Esophagitis
Alcoholic Hepatitis
Abnormal Troponin
Anxiety / Depression
Plan:
Admit for further evaluation and treatment.
NPO. IVF support with electrolyte replacement.
Mag / Phos added - replace if indicated.
IV abx for now for possible cholangitis with sepsis.
MRCP in AM.
GI evaluation for additional recommendations.
Abstain from alcohol. MSAS protocol with BZDs as needed.
Follow serial troponin. Chest pain at present burning in nature and seems explained by noted GI findings, esophagitis, etc.
Cardiology evaluation if troponin significantly increases or new / worsening symptoms.
Original Note:
Family Physician
-
Family Physician: Abe Davis
Chief Complaint
-
Nausea vomiting x 4 days
History of Present Illness
89-year-old female complainingmidepigastric to left upper quadrant abdominal pain with nausea and vomiting x 4 days. She reports of esophageal burning. She has history of alcohol abuse with last drink being reported on 10/15/2025. She
typically drinks vodka 750 mL 2 bottles a week. She reports last medications were 4 days ago. SHe denies fever, chills, chest pain, palpitations, cough, shortness of breath, urinary symptoms. In the ER she was noted to be hypotensive with
leukocytosis elevated lactic acid, hypokalemic with potassium of 2.4. She also had elevated creatinine level and elevated troponin level. CT of her abdomen showing obstructing pancreatic head mass with biliary and pancreatic ductal dilation,
esophagitis and hepatic cirrhosis. She has past medical history of alcohol abuse, neuropathy, restless leg syndrome, GERD, CBD use, active smoker.
Medical History
Past Medical History
Past Medical History: Reports Other
Additional Past Medical History:
alcohol abuse
neuropathy
restless leg syndrome
GERD
CBD use
Depression
active smoker
COPD
Past Surgical History: Reports Other
Additional Past Surgical History:
Right great toe amputation
Back and cervical surgeries
Left wrist radius fracture repair
Social History
Tobacco: Smoker (1/2 pack a day x 30 years)
Alcohol: Daily (Drinks vodka daily total of 750 mL 2 bottles a week)
Drug: Marijuana (CBD medically)
Personal:
Living: Alone
Employment: Not Employed
Family History
Family History: Not pertinent
Allergies / Home Medications
Allergies reflects when Allergies were last updated in [employer].
Home Medications with original date entered in [employer]
Allergy/Medication List:
Allergies
Allergy/AdvReac Type Severity Reaction Status Date / Time
No Known Allergies Allergy Verified 05/05/25 15:43
Home Medications
cyanocobalamin (vitamin B-12) 1,000 mcg tablet (Vitamin B-12) 1,000 mcg PO DAILY 10/17/25
duloxetine 30 mg capsule,delayed release 90 mg PO DAILY 10/17/25
pantoprazole 40 mg tablet,delayed release 40 mg PO DAILY 10/17/25
pramipexole 0.5 mg tablet 0.5 mg PO HS 10/17/25
pregabalin 100 mg capsule (Lyrica) 400 mg PO DAILY 10/17/25
thiamine HCl (vitamin B1) 100 mg tablet 100 mg PO DAILY 10/17/25
Review of Systems
-
History Source: Patient
A 12 point ROS was completed and negative except as noted: Yes
Constitutional: Reports Chills; Denies Fever
EENT: Reports Sore Throat and Other (Esophageal burning)
Respiratory: Denies Cough or Trouble Breathing
Cardiac: Denies Chest Pain, Diaphoresis, Palpitations or Syncope
Abdomen/GI: Reports Abdominal Pain (Epigastric to left upper quadrant), Nausea and Vomiting; Denies Diarrhea, Constipated, Bloody Stools or Black Stools
: Denies Dysuria, Frequency, Flank Pain, Incontinence, Difficulty Voiding or Urgency
Musculoskeletal: Denies Joint Pain or Muscle Pain
Skin: Denies Itching or Rash
Neurological: Denies Dizzy, Headache or Weakness
Endocrine: Reports No Symptoms
Hematologic/Lymphatic: Reports No Symptoms
Psych: Reports Calm
Physical Exam
Vital Signs
Vital Signs
Temp Pulse Resp BP Pulse Ox
98.4 F 117 15 104/81 96
10/17/25 19:06 10/17/25 21:30 10/17/25 21:30 10/17/25 21:00 10/17/25 21:15
Physical Exam
General: Conversant; No Fever or Chills
HEENT: NormoCephalic, Anicteric, PERRLA, [place] Conjunctivae, No Ptosis and Other (Dry oral mucosa)
Respiratory: Clear; No Wheezes, Rales or Rhonchi
Cardiac: S1/S2 and Tachycardia (Sinus tachycardia 130 bpm); No Murmur, Rub, Gallop or Peripheral Edema
Breast: Deferred by me
GI: Soft, Non Distended, Normal Bowel Sounds and Tender (Epigastric to left upper quadrant)
Rectal: Deferred by Provider
Genito-urinary: Deferred by me
Musculoskeletal: No Clubbing, No Cyanosis, No Edema and Other (Missing right great toe status post amputation)
Skin: Warm and Dry; No Rash or Jaundice
Neuro: AO x 3, No Motor Deficits, Nonfocal/grossly intact, Cranial Nerves Intact and No Sensory Deficits; No Slurred Speech, Facial Droop, Tremors or Sedated
Psych: Calm
Laboratory Results
-
10/17/25 19:19
10/17/25 19:52
Laboratory Results
PT 19.2 Sec (11.4-14.6) H 10/17/25 19:19
INR 1.60 10/17/25 19:19
Lactic Acid 3.2 mmol/L (0.7-2.0) H 10/17/25 21:06
Total Bilirubin 6.3 mg/dl (0.2-1.3) H 10/17/25 19:52
AST 172 U/L (14-36) H 10/17/25 19:52
ALT 50 U/L (0-35) H 10/17/25 19:52
Alkaline Phosphatase 154 U/L (38-126) H 10/17/25 19:52
Troponin I 0.083 ng/ml H* 10/17/25 19:52
Lipase 195 U/L (23-300) 10/17/25 19:52
Impression/Plan
-
Impression/plan:
Admit to IMU
#Sepsis likely secondary to obstructing pancreatic head mass
WBC 19.6 with left shift, lactic acid 3.4, creatinine 1.9, T. bili 6.3 SBP 94/72
-MRI MRCP in a.m.
- Consult GI
- Zosyn renal dose
- Given 1 L IV NSS in ER give additional 1 L bolus for sepsis then maintenance IV NS at 100 cc/h
- Follow CBC, CMP
CXR: No acute cardiopulmonary process, possible mild chronic interstitial changes
CT abdomen pelvis without IV or oral contrast:
1. Suspect heterogeneous obstructing pancreatic head mass with associated biliary and pancreatic ductal dilatation.
Questionable choledocholithiasis. This can be further evaluated with MRI/MRCP abdomen without and with gadolinium
contrast.
2. Suspect esophagitis.
3. Cholelithiasis.
4. Hepatic cirrhosis.
#Transaminitis secondary to Alcohol abuse/hepatic cirrhosis/sepsis
Follow CMP
INR 1.6
#Acute hypokalemia 2/2 vomiting/alcohol use
K2.4
-K rider 40 mEq now then ,K rider 40 mEq for a.m.
-Follow BMP
-Check magnesium
#RAMA 2/2 vomiting
Creatinine 1.9/bun 38 prior creatinine 0.6 06/2024
-IV NSS 1 L given in ER
-Continue IV NSS 100 cc an hour
#Troponin elevation likely ischemic demand secondary to sepsis
No active chest pain has esophageal burning only secondary to his esophagitis
Troponin 0.083 will trend,
No EKG
#Esophagitis per CT
IV Protonix 40 mg now on daily
#Alcohol abuse/hepatic cirrhosis
Drinks 750 mL vodka 2 bottles a week last drink was 10/15/2025
-Check alcohol level
-MSAs screen with protocol IV thiamine IV folate
#Chronic neuropathy
Typically takes Cymbalta 90 mg daily, Lyrica 400mg daily has not had in the past 4 days
#COPD�no acute exacerbation
Does not use any inhalers
#Nicotine abuse
Half a pack a day x 30 years
Nicotine patch 14 mg
#CBD medical use for depression
#Insomnia
Patient takes doxepin 10 mg at bedtime
DVT prophylaxis
Subcu heparin
Full code
[2025-10-17 22:56] LABS: Magnesium 1.7 mg/dl (1.6-2.3)
[2025-10-17] MEDS: ZOSYN 50 IV (23:06)
[2025-10-18] VITALS (30 sets, daily range): BP systolic 74–128; BP diastolic 45–89; BMI 22.1
[2025-10-18] MEDS: ATIVAN 1 MG PO ×2 (02:02→08:54)
[2025-10-18] MEDS: THIAMINE INJECTION 200 MG IV ×4 (02:02→22:59)
--- NOTE | 2025-10-18 02:50 | PTCARENOTE ---
Pt arrived to floor via stretcher from the ED. Pt AAOx2, slightly forgetful. Pt very restless, pt has baseline of restless jumpy legs. MSAS assessed per protocol 6 at this time. See MAR. HR in the low 100's ST on the monitor with bursts of 150's.
Frequent PVC's noted. POX 86%% on RA. 2 LO2 NC applied, pox 96%. Lungs dec at bases. Tachypneic/ WHITE. Pt nauseous at times. + bowel round abd. Pt yet to void. States no urge to void at this time. Weak peripheral pulses present. Right great toe
amputated. Left AC int capped. Left wrist int infusing Krider as ordered. Pt tearful, emotional support provided. Lab work obtained, awaiting results. Bed alarm in place. Call torres in reach. Will continue to monitor.
[2025-10-18 03:00] LABS: GGTP 593 U/L (12-43)
[2025-10-18 03:05] LABS: APTT 31.7 Sec (23.4-35.0); INR 1.70; PT 20.1 Sec (11.4-14.6)
[2025-10-18 03:11] LABS: ALT (SGPT) 44 U/L (0-35); AST (SGOT) 119 U/L (14-36); Albumin 4.0 g/dl (3.5-5.0); Alkaline Phosphatase 117 U/L (38-126); Blood Urea Nitrogen 36 mg/dl (7-17); Calcium 8.4 mg/dl (8.4-10.2); Carbon Dioxide 36 mmol/L (22-30); Chloride 89 mmol/L (98-107); Estimated Creatinine Clearance 47 ml/min; Glucose 102 mg/dl (70-99); HDL Cholesterol 81 mg/dl; LDL Cholesterol, Calculated 112 mg/dl; Potassium 2.5 mmol/L (3.5-5.1); Sodium 135 mmol/L (135-145); Total Protein 7.4 g/dl (6.3-8.2); Very Low Density Lipoprotein 32 mg/dl (0-30); eGFR 40.14
[2025-10-18 03:15] LABS: Troponin I 0.077 ng/ml
[2025-10-18] MEDS: KCL 270 MEQ IV ×2 (03:23→13:01)
[2025-10-18 03:25] LABS: Hematocrit 38.5 % (37.0-47.0); Hemoglobin 13.3 g/dL (12.0-16.0); Mean Corp Hgb Conc. 34.5 g/dL (33.0-37.0); Mean Corpuscular Volume 90.8 fL (81.0-99.0); Platelet Count 136 10^3/uL (130-400); Red Cell Dist. Width 16.3 % (11.5-14.5)
[2025-10-18] MEDS: NSS 500 IV (03:37)
[2025-10-18] MEDS: NSS 1000 IV ×2 (03:39→16:28)
[2025-10-18] MEDS: ZOSYN 50 IV ×4 (05:36→22:59)
[2025-10-18 06:00] LABS: Nucleated Red Blood Cells % 0.2 %
--- NOTE | 2025-10-18 06:21 | PTCARENOTE ---
Pt with no urine output. Pt placed on bed crowe in attempt to void with only a few drops. bladder scanned for 315ml. MSAS <4. IVF/ K rider infusing as ordered. Will continue to monitor.
--- NOTE | 2025-10-18 06:48 | CON.GI ---
Addendum entered and electronically signed by Crow Cole MD 10/18/25 15:50:
I saw and examined the patient.
The PA's note was reviewed and I agree with the note.
Comment:
60 year old female with h/o ETOH and tobacco abuse with prior admission for crisis with psych placement, COPD, GERD on chronic PPI, and anxiety/depression who p/w abdominal pain with nausea / vomiting. She admits to drinking 2 bottle vodka weekly.
Noted to have elevated LFT. Bili 6.3, AST 172 / ALT 50 and alk phos 154 on admission. AST/ALT elevated in 2:1 ratio, and given her h/o alcohol consumption, she likely has alc hepatitis. Also appears to be in withdrawal. DF 34.8 on admission.
Has leukocytosis and tachycardia, but afebrile. Would recommend starting steroids for presumed alcoholic hepatitis. Agree with treating alcohol withdrawal. Re: her CT which showed 1.8 cm cystic mass in the head of panc, will need MRI/MRCP for
further characterization, but will need to stabilize her alc withdrawal and hepatitis before MRI can be considered.
Addendum entered and electronically signed by KINSEY Canchola 10/18/25 10:51:
reviewed with Dr. Cole ETOH hepatitis also in differential with recent increased use. DF on admission 34.8 then repeat 37.5. cont to trend. Will add blood culture to ensure no infectious process if steroid need to be added.
Original Note:
Consultation
-
Date/Time Consultation Requested: 10/17/25 3119
Date/Time Consultation Performed: 10/18/25 9860
Requesting Provider: Hanane Lee NP
Performing Provider: KINSEY Najera, Hannah Ashley DO
Reason for Consultation: pancreatic mass
Medical History
Chief Complaint / HPI
Chief Complaint: nausea, vomiting, abdominal pain
History of Present Illness:
Pt is a 60yo with hx neuropathy, ETOH and tobacco abuse with prior admission for crisis with psych placement, COPD, GERD on chronic PPI, back pain with prior back surgery , anxiety/depression with onset of abdominal pain with nausea and vomiting.
She also admits to odynophagia and recently drinking 2 bottle vodka weekly. On admission labs with noted with WBC 19,600, hbg 16.3, platelets 193, INR 1.6, Na 133, K 2,4, BUN 38, creat 1.9, glucose 145, bili 6,3, AST 172, ALT 50, alk phos 154,
troponin 0.083, albumin 4.6, lipase 195. Ct on admission with concern for obstructing pancreatic head mass with biliary and pancreatic ductal dilatation with possible choledocholithiasis, suspected esophagitis, cholelithiasis and cirrhosis.
In review with patient she admits to recent stress. He spouse has passed and she will have period on increased ETOH use. She has been depression and currently not working. She admits to odynophagia, mid abdominal pain, but denies any
hematemesis, diarrhea, constipation or rectal bleeding. She takes Advil 1-2 tabs every several days for headaches. Denies anticoagulation use. She may have had EGD 10 years ago did not recall finding and hx tortuous colonoscopy with follow up
barium enema about 10 years ago near [facility] that she recalls as normal. No hx pancreatic or liver issues in past.
Past Medical History
Past Medical History: COPD, GERD, Psychiatric (anxiety/depression) and Other (neuropathy, insomnia, ETOH and tobacco abuse restless leg syndrome , back pain)
Past Surgical History: Gynecological (cervical cone surgery), Orthopedic (back surgery, right foot surgery ) and Other (nasal surgery)
Social History
Tobacco: Smoker
Alcohol: Binge Drinker (2 bottle vodka weekly )
Drug: Other (CBD use )
Personal:
Living: Alone
Employment: Not Employed
Family History
Family History: Other (sister with renal cancer, brother with hx opioid abuse)
Allergies / Home Medications
Allergy/AdvReac Type Severity Reaction Status Date / Time
No Known Allergies Allergy Verified 05/05/25 15:43
�Medication �Instructions �Recorded
cyanocobalamin (vitamin B-12) 1,000 mcg PO DAILY 10/17/25
1,000 mcg tablet (Vitamin B-12)
duloxetine 30 mg capsule,delayed 90 mg PO DAILY 10/17/25
release
pantoprazole 40 mg tablet,delayed 40 mg PO DAILY 10/17/25
release
pramipexole 0.5 mg tablet 0.5 mg PO HS 10/17/25
pregabalin 100 mg capsule (Lyrica) 400 mg PO DAILY 10/17/25
thiamine HCl (vitamin B1) 100 mg 100 mg PO DAILY 10/17/25
tablet
Review of Systems
-
History Source: Patient
Constitutional: Reports Fever (recently ) and Fatigue
EENT: Reports Sore Throat
Respiratory: Reports No Symptoms
Cardiac: Reports No Symptoms
Abdomen/GI: Reports Abdominal Pain, Nausea and Vomiting
: Reports No Symptoms
Musculoskeletal: Reports Other (chronic back pain )
Skin: Reports No Symptoms
Neurological: Reports Weakness
Endocrine: Reports No Symptoms
Vital Signs
Temp Pulse Resp BP Pulse Ox
98.8 F 100 14 106/62 95
10/18/25 00:57 10/18/25 06:15 10/18/25 06:15 10/18/25 06:00 10/18/25 06:15
Physical Exam
Exam
General: Other (axious in bed with moving around)
HEENT: Normocephalic and Other (mild jaundice )
Respiratory: Clear
Cardiac: Other (tachy)
GI: Soft, Non Distended and Tender (epigastric pain)
Musculoskeletal: No Clubbing and No Cyanosis
Skin: Warm and Dry
Neuro: Awake, Alert and AO x 3
Psych: Other (moving around in bed but conversant)
Results
WBC 17.9 10^3/uL (4.8-10.8) H 10/18/25 02:31
Hgb 13.3 g/dL (12.0-16.0) 10/18/25 02:31
Hct 38.5 % (37.0-47.0) 10/18/25 02:31
MCV 90.8 fL (81.0-99.0) 10/18/25 02:31
Plt Count 136 10^3/uL (130-400) D 10/18/25 02:31
Absolute Neuts (auto) 10.0 10^3/uL (1.4-6.5) H 10/18/25 02:31
PT 20.1 Sec (11.4-14.6) H 10/18/25 02:31
INR 1.70 10/18/25 02:31
APTT 31.7 Sec (23.4-35.0) 10/18/25 02:31
Sodium 135 mmol/L (135-145) 10/18/25 02:31
Potassium 2.5 mmol/L (3.5-5.1) L* 10/18/25 02:31
Chloride 89 mmol/L (98-107) L 10/18/25 02:31
Carbon Dioxide 36 mmol/L (22-30) H 10/18/25 02:31
BUN 36 mg/dl (7-17) H 10/18/25 02:31
Creatinine 1.5 mg/dL (0.6-1.0) H 10/18/25 02:31
Calcium 8.4 mg/dl (8.4-10.2) D 10/18/25 02:31
Total Bilirubin 4.8 mg/dl (0.2-1.3) H 10/18/25 02:31
AST 119 U/L (14-36) H 10/18/25 02:31
ALT 44 U/L (0-35) H 10/18/25 02:31
Alkaline Phosphatase 117 U/L (38-126) 10/18/25 02:31
Lipase 195 U/L (23-300) 10/17/25 19:52
Diagnostic Image Results:
MRCP pending
10/17/25 CXR
No acute cardiopulmonary process.
Possible mild chronic interstitial changes.
10/17/25 CT A/p
1. Suspect heterogeneous obstructing pancreatic head mass with associated biliary and pancreatic ductal dilatation. Questionable choledocholithiasis. This can be further evaluated with MRI/MRCP abdomen without and with gadolinium contrast.
2. Suspect esophagitis.
3. Cholelithiasis.
4. Hepatic cirrhosis.
Prior GI Procedures:
EGD: 10 years ago did not recall findings
Colonoscopy: 10 years ago tortuous colon with need for barium enema
Assessment / Plan
-
Pt is a 60yo with hx neuropathy, ETOH and tobacco abuse with prior admission for crisis with psych placement, COPD, GERD on chronic PPI, back pain with prior back surgery , anxiety/depression with onset of abdominal pain with nausea and vomiting.
She also admits to odynophagia and recently drinking 2 bottle vodka weekly. On admission labs with noted with WBC 19,600, hbg 16.3, platelets 193, INR 1.6, Na 133, K 2,4, BUN 38, creat 1.9, glucose 145, bili 6,3, AST 172, ALT 50, alk phos 154,
troponin 0.083, albumin 4.6, lipase 195. Ct on admission with concern for obstructing pancreatic head mass with biliary and pancreatic ductal dilatation with possible choledocholithiasis, suspected esophagitis, cholelithiasis and cirrhosis. In
review with patient she admits to recent stress. He spouse has passed and she will have period on increased ETOH use. She has been depression and currently not working. She admits to odynophagia, and mid abdominal pain She takes Advil 1-2 tabs
every several days for headaches. Denies anticoagulation use. She may have had EGD 10 years ago did not recall finding and hx tortuous colonoscopy with follow up barium enema about 10 years ago near [facility] that she recalls as
normal. No hx pancreatic or liver issues in past.
-abdominal pain with nausea and vomiting
-abnormal CT without contrast with concern for pancreatic head mass and biliary and pancreatic dilatation with possible choledocholithiasis
-increased LFT's
-cirrhosis per CT with meld 29 based on admission labs
-leukocytosis with elevated lactate and hypotension concern for sepsis on admission
-severe hypokalemia
-sinus tach with PAC's
-esophagitis with odynophagia
-ETOH abuse with recent binge and concern for withdrawal
-RAMA with some improvement after admission
-increased troponin
-coagulopathy
-elevated triglycerides/cholesterol
other med problems:
-tobacco abuse
-anxiety/depression
-COPD
-GERD on chronic PPI prior to admission
-back pain with prior back surgery
PLAN:
etiology of symptoms with concern for sepsis with possible cholangitis with possible CBD stone, pancreatic head mass but limited with non contrast imaging, ETOH abuse with withdrawal and electrolyte imbalance
for MRCP -- if able will add MRI with contrast to clarify pancreatic head mass vs if unable to tolerate can consider EUS
repeat K
monitor for withdrawal
eventual EGD with esophagitis/odynophagia
NPO
cont IV Zosyn
cont thiamine and folate
eventual work up for possible cirrhosis, will add hepatitis panel
trend INR with some elevation on admission with MELD of 29 with RAMA on admission
-
-
-
Thank you for consultation and allowing me to participate in the patient's care. Please call the mine exploration engineer GI physician during the after hours with any questions or concerns.
[2025-10-18] MEDS: KCL 160 MEQ IV (07:43)
[2025-10-18] MEDS: PROTONIX IV 40 MG IV (08:54)
[2025-10-18] MEDS: HEPARIN 5000 UNITS SC ×2 (08:54→19:45)
[2025-10-18] MEDS: FOLVITE 1 MG PO (08:54)
[2025-10-18] MEDS: NSS (PRESERVATIVE FREE) 10 ML IV (08:55)
--- NOTE | 2025-10-18 09:36 | CM ---
Patient seen at bedside with nurse present in ICU. Patient stated that she planned to go to [place] with her son and daughter in law to a program in [place] that she understood had helped her friend and her family. Patient declined [facility] at this time.
Patient stated that she lives alone in a ranch style home. Patient stated that she is independent of ADL's and IADL's prior to admission. PCP is Dr. France but patient wants to transition due to his location. Patient [facility] [address] at bedside.
Patient plan is for discharge home with no needs at this time and follow up with program in [place] at patient request. CM will continue to follow for discharge planning needs.
Plan; home with outpatient follow up.
[2025-10-18 10:54] LABS: Blood Urea Nitrogen 34 mg/dl (7-17); Calcium 7.9 mg/dl (8.4-10.2); Carbon Dioxide 32 mmol/L (22-30); Chloride 97 mmol/L (98-107); Estimated Creatinine Clearance 59 ml/min; Glucose 101 mg/dl (70-99); Potassium 3.0 mmol/L (3.5-5.1); Sodium 137 mmol/L (135-145); eGFR 52.47
--- NOTE | 2025-10-18 10:54 | PTCARENOTE ---
Report given to BALDEMAR Ramirez.
[2025-10-18] MEDS: ATIVAN 1 MG IV ×6 (11:05→22:45)
[2025-10-18 11:08] LABS: Troponin I 0.054 ng/ml
[2025-10-18 11:20] LABS: Urine Character Clear (Clear)
[2025-10-18] MEDS: PHENOBARBITAL 97.5 MG IV ×3 (12:00→22:27)
--- NOTE | 2025-10-18 12:05 | W.PN.HOSP.TC ---
Addendum entered and electronically signed by Rafael Aranda MD 10/18/25 15:45:
Updated patient daughter over the phone in details. Answered all her question to her satisfaction. She was appreciative for update.
Original Note:
Today's Communication/Plan
-
Start phenobarbital taper
Continue with IV fluids
Replete potassium
MRI pending
Continue with Zosyn for now
Assessment / Plan
Assessment / Plan
General: Conversant; No Fever or Chills
HEENT: NormoCephalic, Anicteric, , Crowder Conjunctivae, No Ptosis and Other (Dry oral mucosa)
Respiratory: Clear; No Wheezes, Rales or Rhonchi
Cardiac: S1/S2
Breast: Deferred by me
GI: Soft, Non Distended, Normal Bowel Sounds and Tender (Epigastric to left upper quadrant)
Rectal: Deferred by Provider
Genito-urinary: Deferred by me
Musculoskeletal: No Clubbing, No Cyanosis, No Edema and Other (Missing right great toe status post amputation)
Skin: Warm and Dry; No Rash or Jaundice
Neuro: awakens upon name calling, moving all 4 extremities, , No Motor Deficits, Nonfocal/grossly intact, mild tremors
Psych: Calm
#Sepsis with elevated lactate likely secondary to obstructing pancreatic head mass versus secondary to cholangitis with possible CBD stone
# Abdominal pain, nausea and vomiting
#Lactic acidosis
MRCP pending
Zosyn renal dose
Cont with IVF.
f/u on blood cultures
GI following
#Transaminitis secondary to Alcohol abuse/hepatic cirrhosis/sepsis
Follow CMP
hep panel pending
#Acute hypokalemia 2/2 vomiting/alcohol use
replete/monitor
#RAMA 2/2 vomiting
Creatinine 1.9/bun 38 prior creatinine 0.6 06/2024
Creatinine continues to downtrend.
Continue IV IV fluids for now
# Nonischemic myocardial injury
No active chest pain has esophageal burning only secondary to his esophagitis
Troponin has downtrended
No EKG
#Esophagitis per CT
IV Protonix 40 mg now on daily
May require EGD. Will defer to GI
#Alcohol abuse/hepatic cirrhosis
Drinks 750 mL vodka 2 bottles a week last drink was 10/15/2025
Patient with high risk of severe withdrawal and we will start patient on phenobarbital regimen
MSAs screen with protocol IV thiamine IV folate
Elevated Madrey score. May require prednisone. Follow-up on the blood cultures.
#Chronic neuropathy
Typically takes Cymbalta 90 mg daily, Lyrica 400mg daily has not had in the past 4 days
#COPD�no acute exacerbation
Does not use any inhalers
#Nicotine abuse
Half a pack a day x 30 years
Nicotine patch 14 mg
#CBD medical use for depression
#Insomnia
Patient takes doxepin 10 mg at bedtime
DVT prophylaxis
Subcu heparin
Full code
Anticipated Discharge: > 48 hours
Subjective/Interval History
-
Date of Service: October 18, 2025
received ativan earlier today
sleeping and mumbling
Objective Data
-
Labs:
Laboratory Results
10/18/25 10/18/25
02:31 10:27
WBC 17.9 H
Hgb 13.3
Hct 38.5
Plt Count 136 D
PT 20.1 H
INR 1.70
APTT 31.7
Sodium 135 137
Potassium 2.5 L* 3.0 L
Chloride 89 L 97 L
Carbon Dioxide 36 H 32 H
BUN 36 H 34 H
Creatinine 1.5 H 1.2 H
Glucose 102 H 101 H
Calcium 8.4 D 7.9 L
Total Bilirubin 4.8 H
AST 119 H
ALT 44 H
Alkaline Phosphatase 117
Vital Signs:
Vital Signs
Temp Pulse Resp BP Pulse Ox
99.5 F 100 14 106/62 95
10/18/25 11:02 10/18/25 06:15 10/18/25 06:15 10/18/25 06:00 10/18/25 06:15
I&O
10/17/25 10/18/25 10/19/25
06:59 06:59 06:59
Intake Total 630 / 630
Balance 630 / 630
Data Reviewed
-
Total Time Spent with Patient (in minutes): 55
[2025-10-18 12:10] LABS: Urine White Cell Cast 0-2 /LPF
[2025-10-18 12:12] LABS: Urine Red Blood Cell 0-2 /HPF (0-2); Urine Squamous Cell >30 /LPF (Few)
--- NOTE | 2025-10-18 18:29 | PTCARENOTE ---
Pt received with increasing MSAS for restlessness, tachycardia, tremors, vague orientation nausea, and hallucinations. Confused speech. Pt pointing to empty areas of the room and stating the dogs and cats are making too much noise. Dr. Aranda
notified. New order for Phenobarbital taper initiated. Ativan administer per ordered. Potassium Chloride 40meq IV infused.
[2025-10-18] MEDS: NSS (PRESERVATIVE FREE) 0.5 ML IV ×2 (20:07→22:44)
--- NOTE | 2025-10-18 20:18 | PTCARENOTE ---
Vital signs downloaded from previous shift - cannot confirm vitals prior to 1900.
--- NOTE | 2025-10-18 21:00 | PTCARENOTE ---
Assumed care of patient at 1900. Patient AAOx2 - disoriented to time. Patient w/ periods of drowsiness/restlessness. Patient w/ confused conversation and forgetful. Impulsive but able to be redirected most of the time. Patient on MSAS - see
worklist/JAN. SR/ST on the monitor - HR 80s to 110s w/ PACs. Weak pedals. Patient on 2L NC - POX 94-99%. WHITE and tachypneic. Lungs diminished in the bases bilaterally. +BS, abdomen round. Patient reports mild intermittent nausea. No urine output yet
this shift. R great toe amputated. Weak pedal pulses bilaterally. Patient w/ NSS infusing as ordered through L hand IV - see JAN. Patient unintentionally pulled out LAC IV when turning in bed.
[2025-10-18] MEDS: PRECEDEX 100 IV (22:59)
[2025-10-19] VITALS (26 sets, daily range): BP systolic 80–158; BP diastolic 43–133; BMI 22.7
[2025-10-19] MEDS: ATIVAN 1 MG IV ×2 (00:06→00:54)
[2025-10-19] MEDS: NSS (PRESERVATIVE FREE) 0.5 ML IV (00:07)
[2025-10-19] MEDS: VALIUM INJECTION 10 MG IV (00:24)
[2025-10-19] MEDS: NSS (PRESERVATIVE FREE) 10 ML IV ×2 (00:54→07:40)
--- NOTE | 2025-10-19 01:00 | PTCARENOTE ---
Addendum entered by Juan M Kim RN 10/19/25 05:29:
Patient also placed in B/L wrist restraints at approximately midnight - see worklist.
Original Note:
Patient found attempting to climb out of bed. Patient pulled out LH IV. Unable to redirect patient. Thrashing around in bed w/ increasing MSAS. House FLAT HAMMERER notified - patient upgraded to ICU and started on precedex gtt - see MAR/Worklist. Patient
also given one time doses of Ativan and Valium for agitation - see MAR.
[2025-10-19] MEDS: PHENOBARBITAL 104 MG IV (01:18)
--- NOTE | 2025-10-19 01:27 | W.PN.UPDATE ---
Update Note
Progress Note Update
Patient�severely agitated�despite benzodiazepine�and�precedex�therapy.�Decision made�to�load with�IV�phenobarbital, discussed with�pharmacy if�ok to�load with�current�hepatic function, recommendation�was�ok�to give. ��
[2025-10-19] MEDS: NICODERM TRANSDERMAL 21 MG TRANSDERM (03:41)
[2025-10-19] MEDS: PRECEDEX 100 IV ×4 (03:41→23:13)
[2025-10-19 03:44] LABS: INR 1.95; PT 22.4 Sec (11.4-14.6)
[2025-10-19 03:45] LABS: APTT 35.6 Sec (23.4-35.0)
[2025-10-19 04:13] LABS: ALT (SGPT) 41 U/L (0-35); AST (SGOT) 79 U/L (14-36); Albumin 3.0 g/dl (3.5-5.0); Alkaline Phosphatase 89 U/L (38-126); Blood Urea Nitrogen 24 mg/dl (7-17); Calcium 7.5 mg/dl (8.4-10.2); Carbon Dioxide 32 mmol/L (22-30); Chloride 103 mmol/L (98-107); Estimated Creatinine Clearance 88 ml/min; Glucose 126 mg/dl (70-99); Magnesium 1.9 mg/dl (1.6-2.3); Potassium 2.9 mmol/L (3.5-5.1); Sodium 140 mmol/L (135-145); Total Protein 5.8 g/dl (6.3-8.2); eGFR > 60.00
[2025-10-19] MEDS: ZOSYN 50 IV ×4 (04:31→23:01)
[2025-10-19 04:35] LABS: Hepatitis B Surface Antigen Negative (Negative)
--- NOTE | 2025-10-19 04:42 | PTCARENOTE ---
Patient remains on Precedex gtt - weaning as able - see MAR/Worklist. Phenobarbital loading dose ordered by CHILD CARE CENTRE DIRECTOR and given. K and Mag low this AM - K and Mag riders ordered - see MAR.
[2025-10-19 04:53] LABS: Hepatitis A Antibody, Total Negative (Negative); Hepatitis C Antibody Negative (Negative)
[2025-10-19] MEDS: MAGNESIUM SULFATE 102 GRAMS IV (05:02)
[2025-10-19] MEDS: KCL 270 MEQ IV ×2 (05:02→18:14)
[2025-10-19] MEDS: NSS 1000 IV (05:09)
[2025-10-19] MEDS: ATIVAN 2 MG IV (05:13)
[2025-10-19 05:14] LABS: Hematocrit 30.2 % (37.0-47.0); Hemoglobin 10.2 g/dL (12.0-16.0); Mean Corp Hgb Conc. 33.8 g/dL (33.0-37.0); Mean Corpuscular Volume 92.6 fL (81.0-99.0); Nucleated Red Blood Cells % 0 %; Platelet Count 66 10^3/uL (130-400); Red Cell Dist. Width 15.9 % (11.5-14.5)
--- NOTE | 2025-10-19 07:30 | PTCARENOTE ---
Addendum entered by Dottie Ramirez RN 10/19/25 17:41:
Bilateral soft wrist restraints in place, checked and retied.
Original Note:
Assumed care. Patient received lying in bed, sedated on Precedex. Precedex gtt titrated down as patient requires verbal and tactile stimuli to rouse. Pt snoring, sats well on 2L/nc. HOB up 30 degrees, snoring less. See extruder charted on
worklist flowsheet. BBS with scattered rhonchi that clears with harsh loose NPC. S1 S2 regular, SB on CM, prolonged QT. Left hand and right FA IV sites WDL. IVF and Precedex infusing. Montesinos catheter in placed draining slightly cloudy jonatan urine.
Chart and orders reviewed, labs noted. Bed in low and locked position, bed alarm on, call torres in reach. Frequent rounds.
[2025-10-19] MEDS: PROTONIX IV 40 MG IV (07:40)
[2025-10-19] MEDS: HEPARIN SC (07:40)
[2025-10-19] MEDS: THIAMINE INJECTION 200 MG IV ×3 (07:41→23:01)
[2025-10-19] MEDS: PHENOBARBITAL 97.5 MG IV ×3 (07:41→20:06)
[2025-10-19] MEDS: FOLVITE PO (07:41)
--- NOTE | 2025-10-19 08:20 | CON.INTV ---
Consultation
Consultation Request
Date/Time Consultation Requested: 10/19/2025
Date/Time Consultation Performed: 10/19/2025
Medical History
-
Chief Complaint: Alcohol withdrawl
History of Present Illness:
Patient is a 60-year-old female who presented to the hospital with nausea vomiting and epigastric pain. Patient also reported history of retrosternal burning sensation. Patient has longstanding history of alcohol use with last drink on 10/15. She
typically drinks 750 mL 2 bottles a week of vodka. Patient had not been taking any of her medications either. In the emergency room patient was noted to be quite dehydrated, hypotensive with elevated lactate along with hypokalemia. She also noted
to have acute kidney injury. CT abdomen pelvis was pursued which was suggestive of an obstructive pancreatic head mass with biliary dilation. Patient was started on broad-spectrum antibiotic, IV fluid resuscitation and was admitted to the
hospitalist service. Patient was evaluated by GI service and MRI/MRCP was recommended for further evaluation of suspected pancreatic mass. Overnight 10/18, patient developed increasing agitation related to alcohol withdrawal and was transferred to
ICU. Patient was loaded with phenobarbital and was started on Precedex infusion. Outreach Liaison consultation was requested for further input.
Past Medical History
Past Medical History: Reports Other
Additional Past Medical History:
alcohol abuse
neuropathy
restless leg syndrome
GERD
CBD use
Depression
active smoker
COPD
Past Surgical History: Reports Other
Additional Past Surgical History:
Right great toe amputation
Back and cervical surgeries
Left wrist radius fracture repair
Social History
Tobacco: Smoker (1/2 pack a day x 30 years)
Alcohol: Daily (Drinks vodka daily total of 750 mL 2 bottles a week)
Drug: Marijuana (CBD medically)
Personal:
Living: Alone
Employment: Not Employed
Family History
Family History: Not pertinent
Allergies / Home Medications
Allergies
Allergy/AdvReac Type Severity Reaction Status Date / Time
No Known Allergies Allergy Verified 05/05/25 15:43
Home Medications
�Medication �Instructions �Recorded �Confirmed �Last Taken �Type
cyanocobalamin (vitamin B-12) 1,000 mcg PO DAILY Supplement 10/17/25 10/17/25 10/14/25 09:00 History
1,000 mcg tablet (Vitamin B-12)
duloxetine 30 mg capsule,delayed 90 mg PO DAILY Mental 10/17/25 10/17/25 10/14/25 09:00 History
release Health/Anxiety
pantoprazole 40 mg tablet,delayed 40 mg PO DAILY Gastrointestinal 10/17/25 10/17/25 10/14/25 09:00 History
release Issue
pramipexole 0.5 mg tablet 0.5 mg PO HS RLS 10/17/25 10/17/25 10/14/25 09:00 History
pregabalin 100 mg capsule (Lyrica) 400 mg PO DAILY Pain 10/17/25 10/17/25 10/14/25 09:00 History
thiamine HCl (vitamin B1) 100 mg 100 mg PO DAILY Supplement 10/17/25 10/17/25 10/14/25 09:00 History
tablet
Review of Systems
-
Unable to Obtain full review of systems at this time due to: Acuity (Limited by mental acuity currently. )
Vitals / Labs / Diagnostic Testing
Vital Signs
Temp Pulse Resp BP Pulse Ox
97.2 F 52 16 111/72 98
10/19/25 07:49 10/19/25 07:00 10/19/25 07:00 10/19/25 07:00 10/19/25 07:49
Lab Data
10/19/25 03:15
Laboratory Results
10/19/25
03:15
PT 22.4 H
INR 1.95
APTT 35.6 H
Microbiology
10/17/25 19:19 Nasal Swab Influenza Types A & B (QUINN) - Final
Negative for Influenza A & B, NAAT
Negative results must be combined with clinical observations
and patient history.
Nucleic Acid Amplification test (NAAT)performed on the
Rem[employer]Pro platform.
Diagnostic Testing:
Physical Exam
-
HEENT: Normocephalic
Cardiovascular: S1/S2
Respiratory: Clear
GI: Soft and Non Distended
Neurology: Other (Drowzy, protecting airway )
Skin: Warm
General: Comfortable
Assessment
-
#1. Sepsis with concern for cholangitis with suspected pancreatic head mass
- WBC count improving, serial lactate improving, continue IV fluid resuscitation
- Influenza A, B, COVID-19 screen negative. Blood cultures pending
- Continue broad-spectrum antibiotic with IV Zosyn
- GI service on case, pending MRCP/MRI.
#2. Severe alcohol withdrawal with acute metabolic encephalopathy
- Patient exhibiting signs and symptoms of severe alcohol withdrawal. S/p transfer to ICU on 10/19, currently on Precedex infusion along with phenobarbital taper. D/c Ativan while on Phenobarb and Precedex.
- Continue thiamine replacement
- Monitor closely in the ICU
- UTOX positive for tricyclic's, benzodiazepine and marijuana
#3. Alcohol use disorder with acute alcoholic hepatitis
- Liver function test improving
- Steroids likely not initiated due to concern for cholangitis/infection
- Continue to monitor LFTs
- D/w GI service, initiate NAC infusion.
#4. Lactic acidosis on admission
- Gradually improving with IV fluid resuscitation, 3.2 > 1.5
- Sepsis, dehydration and alcohol resume in differential diagnosis
- Beta-hydroxybutyrate minimally elevated at 1.09
- Continue IV fluids and broad-spectrum antibiotics
#5. RAMA on admission
- Resolving with IVF resuscitation, 1.9 > 0.8
#6. Hypokalemia, Hyponatremia
- Gradually improving with IV fluids and potassium replacement
- Add Kcl in NS infusion
- F.u Labs in evening.
#7. Thrombocytopenia with coagulopathy
- INR 1.95, PTT 35.6
- hold s.c Heparin
#8. QTc prolongation
- Continue to replace potassium, target more than 4, magnesium more than 2
- Check follow-up EKG
#9. H/o Smoking and COPD
- Not in acute exacerbation
Other medical diagnoses:
- Minimal troponin elevation
- Suspected esophagitis
- Neuropathy, suspect related to alcoholism
- History of depression with CBD use
- Insomnia
Critical Care time 65 min - The patient is admitted for acute critical illness for the treatment of vital organ failure and/or prevention of further life-threatening conditions. Total care includes time spent in review of history, physical exam,
medications, hemodynamic/ventilator parameters, laboratory data, imaging and discussion with house staff, pharmacy, respiratory therapy, cigar binder, and nursing.
Data:
EKG 10/17: QTc 561
CXR 10/2025: No acute change
CT A/P 10/2025: 1. Suspect heterogeneous obstructing pancreatic head mass with associated biliary and pancreatic ductal dilatation. Questionable choledocholithiasis. This can be further evaluated with MRI/MRCP abdomen without and with gadolinium
contrast.
2. Suspect esophagitis.
3. Cholelithiasis.
4. Hepatic cirrhosis.
--- NOTE | 2025-10-19 09:52 | W.PN.GI.CBS2 ---
Today's Communication / Plan
-
Cannot get MRI with her current mental status
WBC down to 5.8 on zosyn
would hold off on steroids given concern for infxn
Start IV NAC for non-APAP acute EtOH hepatitis with high MELD
Continue rx EtOH withdrawal and get MRI when able
Bili trending down. INR up
Will follow
Assessment / Plan
-
Pt is a 60yo with hx neuropathy, ETOH and tobacco abuse with prior admission for crisis with psych placement, COPD, GERD on chronic PPI, back pain with prior back surgery , anxiety/depression with onset of abdominal pain with nausea and vomiting.
She also admits to odynophagia and recently drinking 2 bottle vodka weekly. On admission labs with noted with WBC 19,600, hbg 16.3, platelets 193, INR 1.6, Na 133, K 2,4, BUN 38, creat 1.9, glucose 145, bili 6,3, AST 172, ALT 50, alk phos 154,
troponin 0.083, albumin 4.6, lipase 195. Ct on admission with concern for obstructing pancreatic head mass with biliary and pancreatic ductal dilatation with possible choledocholithiasis, suspected esophagitis, cholelithiasis and cirrhosis. In
review with patient she admits to recent stress. He spouse has passed and she will have period on increased ETOH use. She has been depression and currently not working. She admits to odynophagia, and mid abdominal pain She takes Advil 1-2 tabs
every several days for headaches. Denies anticoagulation use. She may have had EGD 10 years ago did not recall finding and hx tortuous colonoscopy with follow up barium enema about 10 years ago near [facility] that she recalls as
normal. No hx pancreatic or liver issues in past.
10/17/25 CT AP- Suspect heterogeneous obstructing pancreatic head mass with associated biliary and pancreatic ductal dilatation. Questionable choledocholithiasis. Suspect esophagitis. Cholelithiasis. Hepatic cirrhosis
Impression:
Acute on chronic alcoholic liver disease. MELD 29 on admission
EtOH withdrawal
-abdominal pain with nausea and vomiting
-abnormal CT without contrast with concern for pancreatic head mass and biliary and pancreatic dilatation with possible choledocholithiasis
-increased LFT's
-cirrhosis per CT with meld 29 based on admission labs
-leukocytosis with elevated lactate and hypotension concern for sepsis on admission
-severe hypokalemia
-sinus tach with PAC's
-esophagitis with odynophagia
-ETOH abuse with recent binge and concern for withdrawal
-RAMA with some improvement after admission
-increased troponin
-coagulopathy
-elevated triglycerides/cholesterol
other med problems:
-tobacco abuse
-anxiety/depression
-COPD
-GERD on chronic PPI prior to admission
-back pain with prior back surgery
Subjective
Subjective
Date of Service: October 19, 2025
Pt agitated overnight. Now sedated
Objective
Data Reviewed
Laboratory Data:
Laboratory Results
10/19/25 03:15
Laboratory Results
PT 22.4 Sec (11.4-14.6) H 10/19/25 03:15
INR 1.95 10/19/25 03:15
APTT 35.6 Sec (23.4-35.0) H 10/19/25 03:15
Phosphorus 3.8 mg/dl (2.5-4.5) 10/18/25 02:31
Magnesium 1.9 mg/dl (1.6-2.3) 10/19/25 03:15
Total Bilirubin 3.0 mg/dl (0.2-1.3) H 10/19/25 03:15
AST 79 U/L (14-36) H 10/19/25 03:15
ALT 41 U/L (0-35) H 10/19/25 03:15
Alkaline Phosphatase 89 U/L (38-126) 10/19/25 03:15
Lipase 195 U/L (23-300) 10/17/25 19:52
Vital Signs and I&O:
Vital Signs
Temp Pulse Resp BP Pulse Ox
97.2 F 52 19 113/70 98
10/19/25 07:49 10/19/25 09:00 10/19/25 09:00 10/19/25 09:00 10/19/25 09:00
I&O
10/18/25 10/19/25 10/20/25
06:59 06:59 06:59
Intake Total 630 / 630 2820.6 / 2911.7 267.7 / 267.7
Output Total 725 / 740 105 / 105
Balance 630 / 630 2095.6 / 2171.7 162.7 / 162.7
Physical Exam
Physical Exam
GI: Soft and Non Distended
Neuro: Other (sedated)
[2025-10-19] MEDS: ACETADOTE 257 MG IV (10:56)
[2025-10-19] MEDS: NSS with KCL 20 MEQ 1000 IV ×2 (11:07→23:14)
--- NOTE | 2025-10-19 11:30 | PTCARENOTE ---
BBS with faint scattered expiratory wheezes t/o. VSS except core temp 96.4F, warm blankets donned. Knee high teds donned per order. No other change in patient physical assessment. Remains lightly sedated on Precedex.
[2025-10-19] MEDS: ACETADOTE 519 MG IV (12:09)
--- NOTE | 2025-10-19 12:14 | CM ---
Chart reviewed GI consulted. Would need MRI when able DC > 48 hours
cm will continue to follow up for dcp needs.
--- NOTE | 2025-10-19 13:53 | W.PN.HOSP.TC ---
Today's Communication/Plan
-
Plan to start IV NAC per the protocol
Continue with IV antibiotic
Continue with phenobarbital
IV fluid with KCl
Continue Precedex
Continue with ICU level of care
Assessment / Plan
Assessment / Plan
General: Conversant; No Fever or Chills
HEENT: NormoCephalic, Anicteric, , [place] Conjunctivae, No Ptosis and Other (Dry oral mucosa)
Respiratory: Clear; No Wheezes, Rales or Rhonchi
Cardiac: S1/S2 regular rhythm
Breast: Deferred by me
GI: Soft, Non Distended, Normal Bowel Sounds and Tender (Epigastric to left upper quadrant)
Rectal: Deferred by Provider
Genito-urinary: Deferred by me
Musculoskeletal: No Clubbing, No Cyanosis, No Edema and Other (Missing right great toe status post amputation)
Skin: Warm and Dry;
Neuro: awakens upon name calling, moving all 4 extremities, , No Motor Deficits, Nonfocal/grossly intact, mild tremors, in restraints
Psych: sedated, was agitated earlier
#Sepsis with elevated lactate likely secondary to obstructing pancreatic head mass versus secondary to cholangitis with possible CBD stone
# Abdominal pain, nausea and vomiting
#Lactic acidosis
MRCP pending-unstable to undergo further imaging
Zosyn renal dose
Cont with IVF.
f/u on blood cultures remains negative
Lactic acidosis resolved.
GI following
# Toxic metabolic encephalopathy secondary to delirium tremens and secondary to severe alcohol withdrawal
#Alcohol abuse
#Acute on chronic alcoholi liver disease
Drinks 750 mL vodka 2 bottles a week last drink was 10/15/2025
Started on phenobarbital regimen with loading dose
Currently on Precedex infusion
Continue with ICU level of care
Continue with alcohol withdrawal protocol
# Acute alcoholic hepatitis
#Hepatic cirrhosis per CT scan
#Coagulopathy
Follow CMP. Elevated MELD score.
hep panel serologies negative
Plan is to start IV NAC protocol
Elevated INR. T. bili downtrending.
Gastroenterology following
#Thrombocytopenia
-trend platelet for now
#Acute hypokalemia 2/2 vomiting/alcohol use
replete/monitor
#RAMA 2/2 vomiting
Creatinine 1.9/bun 38 prior creatinine 0.6 06/2024
Creatinine continues to downtrend.
Continue IV IV fluids for now
Creatinine downtrending and improving
# Nonischemic myocardial injury
No active chest pain has esophageal burning only secondary to his esophagitis
Troponin has downtrended
No EKG
#Esophagitis per CT
IV Protonix 40 mg now on daily
May require EGD eventually. Will defer to GI
#Chronic neuropathy
Typically takes Cymbalta 90 mg daily, Lyrica 400mg daily has not had in the past 4 days
#COPD�no acute exacerbation
Does not use any inhalers
#Nicotine abuse
Half a pack a day x 30 years
Nicotine patch 14 mg
#CBD medical use for depression
#Insomnia
Patient takes doxepin 10 mg at bedtime
DVT prophylaxis
Subcu heparin
Full code
Updated daughter over the phone in details.
Anticipated Discharge: > 48 hours
Subjective/Interval History
-
Date of Service: October 19, 2025
Overnight events were noted
Patient with severe confusion and agitation requiring Precedex
Upgraded to ICU
Objective Data
-
Labs:
Laboratory Results
10/19/25 10/19/25 10/19/25
03:15 12:00 16:00
WBC 5.8
Hgb 10.2 L D
Hct 30.2 L
Plt Count 66 L D
PT 22.4 H
INR 1.95
APTT 35.6 H
Sodium 140 Cancelled Pending
Potassium 2.9 L Cancelled Pending
Chloride 103 Cancelled Pending
Carbon Dioxide 32 H Cancelled Pending
BUN 24 H Cancelled Pending
Creatinine 0.8 Cancelled Pending
Glucose 126 H Cancelled Pending
Calcium 7.5 L Cancelled Pending
Total Bilirubin 3.0 H
AST 79 H
ALT 41 H
Alkaline Phosphatase 89
Vital Signs:
Vital Signs
Temp Pulse Resp BP Pulse Ox
96.6 F L 54 18 96/59 99
10/19/25 11:16 10/19/25 13:00 10/19/25 13:00 10/19/25 13:00 10/19/25 13:00
I&O
10/18/25 10/19/25 10/20/25
06:59 06:59 06:59
Intake Total 630 / 630 2820.6 / 2911.7 1403.3 / 1403.3
Output Total 725 / 740 290 / 290
Balance 630 / 630 2095.6 / 2171.7 1113.3 / 1113.3
Data Reviewed
-
Total Time Spent with Patient (in minutes): 58
--- NOTE | 2025-10-19 15:00 | PTCARENOTE ---
Cares rendered. Oral care, cooperative. Montesinos care and turning, Patient easily agitated, trying to climb OOB. Precedex gtt adjusted, titrated up. Repositioned. Bilateral soft wrist restraints checked and retied. Calms when left undisturbed.
--- NOTE | 2025-10-19 16:00 | PTCARENOTE ---
Addendum entered by Dottie Ramirez RN 10/19/25 17:40:
BBS unchanged from previous. Rest of physical assessment unchanged. Temp slightly improved to 97F core.
Original Note:
Patient continues with episodes of marked agitation. States 'I have to go to the bathroom.' Sitting up, throwing legs OOB. Attempt to reorient unsuccessful. Precedex again titrated. Labs drawn.
[2025-10-19] MEDS: ACETADOTE 1053.2 MG IV (16:15)
[2025-10-19 16:52] LABS: Blood Urea Nitrogen 21 mg/dl (7-17); Calcium 7.7 mg/dl (8.4-10.2); Carbon Dioxide 30 mmol/L (22-30); Chloride 106 mmol/L (98-107); Estimated Creatinine Clearance 118 ml/min; Glucose 114 mg/dl (70-99); Magnesium 2.2 mg/dl (1.6-2.3); Potassium 3.4 mmol/L (3.5-5.1); Sodium 140 mmol/L (135-145); eGFR > 60.00
[2025-10-19] MEDS: FOLVITE 50.2 MG IV (16:59)
--- NOTE | 2025-10-19 17:00 | PTCARENOTE ---
Labs noted. Dr. Fay quiñones texted and updated with lab results and clinical status regarding increased need of Precedex.
--- NOTE | 2025-10-19 19:20 | PTCARENOTE ---
Report given verbally to oncoming shift, Ken MCDERMOTT. Bedside rounds complete. Questions answered. Patient required up tiration of Precedex due to marked agitation and trying to climb OOB. See flowsheet. Maxed at 1.5mcg/kg/hr.
--- NOTE | 2025-10-19 21:00 | PTCARENOTE ---
Assumed care at 1900. On IVF and dex on max dose. B/l wrist restraints in place. Sinus linden with prolonged qt on the monitor. Patient awakens at times and attempts to jump out of bed and gets extremely agitated. See worklist for nursing shift
assessment details.
[2025-10-20] VITALS (22 sets, daily range): BP systolic 100–147; BP diastolic 54–93; BMI 23.5
--- NOTE | 2025-10-20 | PTCARENOTE ---
No change from previous assessment. Sinus linden on the monitor.
[2025-10-20] MEDS: PRECEDEX 100 IV ×6 (02:29→23:50)
[2025-10-20 04:09] LABS: Hematocrit 34.7 % (37.0-47.0); Hemoglobin 11.7 g/dL (12.0-16.0); Mean Corp Hgb Conc. 33.7 g/dL (33.0-37.0); Mean Corpuscular Volume 93.0 fL (81.0-99.0); Nucleated Red Blood Cells % 0 %; Platelet Count 66 10^3/uL (130-400); Red Cell Dist. Width 15.5 % (11.5-14.5)
[2025-10-20 04:16] LABS: INR 1.90; PT 22.0 Sec (11.4-14.6)
[2025-10-20 04:22] LABS: ALT (SGPT) 36 U/L (0-35); AST (SGOT) 47 U/L (14-36); Albumin 2.9 g/dl (3.5-5.0); Alkaline Phosphatase 74 U/L (38-126); Blood Urea Nitrogen 14 mg/dl (7-17); Calcium 7.6 mg/dl (8.4-10.2); Carbon Dioxide 26 mmol/L (22-30); Chloride 109 mmol/L (98-107); Estimated Creatinine Clearance 118 ml/min; Glucose 124 mg/dl (70-99); Potassium 3.4 mmol/L (3.5-5.1); Sodium 139 mmol/L (135-145); Total Protein 5.9 g/dl (6.3-8.2); eGFR > 60.00
[2025-10-20] MEDS: ZOSYN 50 IV ×4 (04:55→23:04)
[2025-10-20] MEDS: MORPHINE SULFATE 2 MG IV (05:32)
[2025-10-20] MEDS: KCL 270 MEQ IV (05:45)
--- NOTE | 2025-10-20 06:04 | PTCARENOTE ---
No change from previous assessment. Attempted to wean down precedex but patient became extremely agitated. Patient was screaming and thrashing around in bed. ICU provider made aware and ordered 1x dose morphine to be given for possible pain. Remains
in b/l wrist restraints and maxed on precedex.
[2025-10-20] MEDS: PHENOBARBITAL 65 MG IV ×3 (09:36→21:31)
[2025-10-20] MEDS: NSS (PRESERVATIVE FREE) 10 ML IV (09:37)
[2025-10-20] MEDS: PROTONIX IV 40 MG IV (09:37)
[2025-10-20] MEDS: THIAMINE INJECTION 200 MG IV ×2 (09:37→16:04)
[2025-10-20] MEDS: FOLVITE PO (09:38)
--- NOTE | 2025-10-20 10:08 | W.PN.GI.CBS2 ---
Today's Communication / Plan
-
Cont IV NAC for non-APAP hepatic faliure. Labs stable/improved
MELD 18. EF 43.8
Continue to follow CBC, CMP, INR
Defer MRI until MS improves to go down. Suspected 1.8cm panc head mass on CT, questionable CBD calculus. Cont IV zosyn. WBC improved/normal
Assessment / Plan
-
Summary: 60yo with hx neuropathy, ETOH and tobacco abuse with prior admission for crisis with psych placement, COPD, GERD on chronic PPI, back pain with prior back surgery , anxiety/depression with onset of abdominal pain with nausea and
vomiting. She also admits to odynophagia and recently drinking 2 bottle vodka weekly. On admission labs with noted with WBC 19,600, hbg 16.3, platelets 193, INR 1.6, Na 133, K 2,4, BUN 38, creat 1.9, glucose 145, bili 6,3, AST 172, ALT 50, alk
phos 154, troponin 0.083, albumin 4.6, lipase 195. Ct on admission with concern for obstructing pancreatic head mass with biliary and pancreatic ductal dilatation with possible choledocholithiasis, suspected esophagitis, cholelithiasis and
cirrhosis. In review with patient she admits to recent stress. He spouse has passed and she will have period on increased ETOH use. She has been depression and currently not working. She admits to odynophagia, and mid abdominal pain She takes
Advil 1-2 tabs every several days for headaches. Denies anticoagulation use. She may have had EGD 10 years ago did not recall finding and hx tortuous colonoscopy with follow up barium enema about 10 years ago near [facility] that she
recalls as normal. No hx pancreatic or liver issues in past.
10/17/25 CT AP- Suspect heterogeneous obstructing pancreatic head mass with associated biliary and pancreatic ductal dilatation. Questionable choledocholithiasis. Suspect esophagitis. Cholelithiasis. Hepatic cirrhosis
Impression:
Acute on chronic alcoholic liver disease. MELD 29 on admission. NAC started 10/19.
EtOH withdrawal
Pancreatic head mass 1.8cm on CT
-abdominal pain with nausea and vomiting
-abnormal CT without contrast with concern for pancreatic head mass and biliary and pancreatic dilatation with possible choledocholithiasis
-increased LFT's
-cirrhosis per CT with meld 29 based on admission labs
-leukocytosis with elevated lactate and hypotension concern for sepsis on admission
-severe hypokalemia
-sinus tach with PAC's
-esophagitis with odynophagia
-ETOH abuse with recent binge and concern for withdrawal
-RAMA with some improvement after admission
-increased troponin
-coagulopathy
-elevated triglycerides/cholesterol
other med problems:
-tobacco abuse
-anxiety/depression
-COPD
-GERD on chronic PPI prior to admission
-back pain with prior back surgery
Subjective
Subjective
Date of Service: October 20, 2025
Sedated on precidex and phenobarb.
Objective
Data Reviewed
Laboratory Data:
Laboratory Results
10/20/25 03:44
10/20/25 03:44
Laboratory Results
PT 22.0 Sec (11.4-14.6) H 10/20/25 03:44
INR 1.90 10/20/25 03:44
APTT 35.6 Sec (23.4-35.0) H 10/19/25 03:15
Phosphorus 3.8 mg/dl (2.5-4.5) 10/18/25 02:31
Magnesium 2.2 mg/dl (1.6-2.3) 10/19/25 16:30
Total Bilirubin 2.4 mg/dl (0.2-1.3) H 10/20/25 03:44
AST 47 U/L (14-36) H 10/20/25 03:44
ALT 36 U/L (0-35) H 10/20/25 03:44
Alkaline Phosphatase 74 U/L (38-126) 10/20/25 03:44
Lipase 195 U/L (23-300) 10/17/25 19:52
Vital Signs and I&O:
Vital Signs
Temp Pulse Resp BP Pulse Ox
98.1 F 61 24 118/69 98
10/20/25 07:30 10/20/25 09:00 10/20/25 09:00 10/20/25 09:00 10/20/25 07:31
I&O
10/19/25 10/20/25 10/21/25
06:59 06:59 06:59
Intake Total 2820.6 / 2911.7 4082.1 / 4301.2 589.8 / 589.8
Output Total 725 / 740 2070 / 0 210 / 210
Balance 2095.6 / 2171.7 2012.1 / 2181.2 379.8 / 379.8
Physical Exam
Physical Exam
GI: Soft and Non Distended
--- NOTE | 2025-10-20 11:32 | PTCARENOTE ---
Ammonia + VBG added.
Unable to complete mri due to agitation / AO x 0 / Does not follow any commands. Maintaining own airway at this time.
No further changes w/ assessment, No further round note updates.
[2025-10-20 11:33] LABS: Venous Blood Gas B.E. -1.1 mmol/L (-4 to +4); Venous Blood Gas O2 Sat % 99.8 %
[2025-10-20 11:50] LABS: Ammonia 53 umol/L (9-30)
[2025-10-20] MEDS: NSS with KCL 20 MEQ 1000 IV ×2 (11:51→23:48)
[2025-10-20] MEDS: FOLVITE 50.2 MG IV (11:54)
--- NOTE | 2025-10-20 13:34 | W.PN.INTV ---
Today's Communication / Plan
Recommendations
- Check VBG, ammonia level
- Place NG tube, initiate lactulose via NG tube in view of elevated ammonia and persistent cephalopathy
Assessment
-
Patient is a 60-year-old female who presented to the hospital with nausea vomiting and epigastric pain. Patient also reported history of retrosternal burning sensation. Patient has longstanding history of alcohol use with last drink on 10/15. She
typically drinks 750 mL 2 bottles a week of vodka. Patient had not been taking any of her medications either. In the emergency room patient was noted to be quite dehydrated, hypotensive with elevated lactate along with hypokalemia. She also noted
to have acute kidney injury. CT abdomen pelvis was pursued which was suggestive of an obstructive pancreatic head mass with biliary dilation. Patient was started on broad-spectrum antibiotic, IV fluid resuscitation and was admitted to the
hospitalist service. Patient was evaluated by GI service and MRI/MRCP was recommended for further evaluation of suspected pancreatic mass. Overnight 10/18, patient developed increasing agitation related to alcohol withdrawal and was transferred to
ICU. Patient was loaded with phenobarbital and was started on Precedex infusion. Process Safety Management Engineer consultation was requested for further input.
#1. Sepsis with concern for cholangitis with suspected pancreatic head mass
- WBC count improving, serial lactate improving, continue IV fluid resuscitation
- Influenza A, B, COVID-19 screen negative. Blood cultures pending
- Continue broad-spectrum antibiotic with IV Zosyn
- GI service on case, pending MRCP/MRI.
#2. Severe alcohol withdrawal with acute metabolic encephalopathy and hepatic encephalopathy
- Patient exhibiting signs and symptoms of severe alcohol withdrawal. S/p transfer to ICU on 10/19, currently on Precedex infusion along with phenobarbital taper. Off Ativan while on Phenobarb and Precedex.
- Continue thiamine replacement. VBG not suggestive of hypercapnia. No hypoglycemia noted.
- Monitor closely in the ICU
- UTOX positive for tricyclic's, benzodiazepine and marijuana
- 10/20, persistent encephalopathy noted, stat Ammonia checked, elevated. Place NG tube initiate Lactulose PO.
#3. Alcohol use disorder with acute alcoholic hepatitis
- Liver function test improving
- Steroids likely not initiated due to concern for cholangitis/infection
- Continue to monitor LFTs
- D/w GI service 10/19, initiated NAC infusion.
#4. Lactic acidosis on admission
- Gradually improving with IV fluid resuscitation, 3.2 > 1.5
- Sepsis, dehydration and alcohol resume in differential diagnosis
- Beta-hydroxybutyrate minimally elevated at 1.09
- Continue IV fluids and broad-spectrum antibiotics
#5. RAMA on admission
- Resolving with IVF resuscitation, 1.9 > 0.8
#6. Hypokalemia, Hyponatremia
- Gradually improving with IV fluids and potassium replacement
- Added Kcl in NS infusion
- F.u Labs improving.
#7. Thrombocytopenia with coagulopathy
- INR 1.95, PTT 35.6
- hold s.c Heparin
#8. QTc prolongation
- Continue to replace potassium, target more than 4, magnesium more than 2
- QTc improved on f/u EKG on 10/20.
#9. H/o Smoking and COPD
- Not in acute exacerbation
Other medical diagnoses:
- Minimal troponin elevation
- Suspected esophagitis
- Neuropathy, suspect related to alcoholism
- History of depression with CBD use
- Insomnia
Critical Care time 45 min - The patient is admitted for acute critical illness for the treatment of vital organ failure and/or prevention of further life-threatening conditions. Total care includes time spent in review of history, physical exam,
medications, hemodynamic/ventilator parameters, laboratory data, imaging and discussion with house staff, pharmacy, respiratory therapy, special education inclusion teacher, and nursing.
Data:
EKG 10/17: QTc 561
CXR 10/2025: No acute change
CT A/P 10/2025: 1. Suspect heterogeneous obstructing pancreatic head mass with associated biliary and pancreatic ductal dilatation. Questionable choledocholithiasis. This can be further evaluated with MRI/MRCP abdomen without and with gadolinium
contrast.
2. Suspect esophagitis.
3. Cholelithiasis.
4. Hepatic cirrhosis.
Subjective Dataa
Subjective Data
Date of Service:
Date of Service: October 20, 2025
Subjective:
Continues to be intermittently encephalopathic alternating with agitation.
Review of Systems
General: Unobtainable - Sedation
Objective Data
Data Reviewed
Vital Signs / I&O / Oxygen:
Vital Signs
Temp Pulse Resp BP Pulse Ox
98.6 F 60 20 118/61 95
10/20/25 11:03 10/20/25 11:00 10/20/25 11:00 10/20/25 11:00 10/20/25 11:00
Intake and Output
10/19/25 10/20/25 10/21/25
06:59 06:59 06:59
Intake Total 2820.6 / 2911.7 4082.1 / 4301.2 741.4 / 741.4
Output Total 725 / 740 2070 / 2120 270 / 270
Balance 2095.6 / 2171.7 2012.1 / 2181.2 471.4 / 471.4
SaO2 95
Nasal Cannula flow liters per 2
minute
Physical Exam
General: Comfortable
HEENT: Normocephalic
Cardiovascular: S1-S2
Respiratory: Clear
GI: Soft and Non Distended
Neurology: Other (Sedated)
Skin: Warm
Labs/Micro/Reports
Lab Data
10/20/25 03:44
10/20/25 03:44
Laboratory Results
10/20/25
03:44
PT 22.0 H
INR 1.90
Microbiology
10/18/25 11:39 Blood/Venous Blood Culture - Preliminary
No Growth in 48 hours- Final report to follow
10/18/25 11:54 Blood/Venous Blood Culture - Preliminary
No Growth in 48 hours- Final report to follow
10/17/25 19:19 Nasal Swab Influenza Types A & B (QUINN) - Final
Negative for Influenza A & B, NAAT
Negative results must be combined with clinical observations
and patient history.
Nucleic Acid Amplification test (NAAT)performed on the
[employer] platform.
--- NOTE | 2025-10-20 13:40 | W.PN.HOSP.TC ---
Today's Communication/Plan
-
Remains with confusion
Continue with phenobarbital
Continue Precedex
Plan to start lactulose noted
Once tube feeding started monitor for refeeding syndrome
Assessment / Plan
Assessment / Plan
General: Conversant; No Fever or Chills
HEENT: NormoCephalic, Anicteric, , [place] Conjunctivae, No Ptosis and Other (Dry oral mucosa)
Respiratory: Clear; No Wheezes, Rales or Rhonchi
Cardiac: S1/S2 regular rhythm
Breast: Deferred by me
GI: Soft, Non Distended, Normal Bowel Sounds and Tender (Epigastric to left upper quadrant)
Rectal: Deferred by Provider
Genito-urinary: Deferred by me
Musculoskeletal: No Clubbing, No Cyanosis, No Edema and Other (Missing right great toe status post amputation)
Skin: Warm and Dry;
Neuro: awakens upon name calling, moving all 4 extremities, , No Motor Deficits, Nonfocal/grossly intact, mild tremors, in restraints
Psych: sedated, was agitated earlier
#Toxic metabolic encephalopathy secondary to delirium tremens and secondary to severe alcohol withdrawal and also concern for possible hepatic encephalopathy
#Alcohol abuse
#Acute on chronic alcoholic liver disease
Drinks 750 mL vodka 2 bottles a week last drink was 10/15/2025
Started on phenobarbital regimen with loading dose
Currently on Precedex infusion
Continue with ICU level of care
Continue with alcohol withdrawal protocol
Plan to start patient on lactulose
Remains in restraints
#Sepsis with elevated lactate likely secondary to obstructing pancreatic head mass versus secondary to cholangitis with possible CBD stone
# Abdominal pain, nausea and vomiting
#Lactic acidosis
MRCP pending-unstable to undergo further imaging due to mentation
Zosyn renal dose
Cont with IVF.
f/u on blood cultures remains negative
Lactic acidosis resolved.
GI following
# Acute alcoholic hepatitis
#Hepatic cirrhosis per CT scan
#Coagulopathy
Follow CMP. Elevated MELD score.
hep panel serologies negative
Was started on IV NAC protocol
Elevated INR. T. bili downtrending.
Gastroenterology following
#Thrombocytopenia
-trend platelet for now
#Acute hypokalemia 2/2 vomiting/alcohol use
replete/monitor
#RAMA 2/2 vomiting
Creatinine 1.9/bun 38 prior creatinine 0.6 06/2024
Creatinine continues to downtrend.
Continue IV IV fluids for now
Creatinine downtrending and improving
# Nonischemic myocardial injury
No active chest pain has esophageal burning only secondary to his esophagitis
Troponin has downtrended
No EKG
#Esophagitis per CT
IV Protonix 40 mg now on daily
May require EGD eventually. Will defer to GI
#Chronic neuropathy
Typically takes Cymbalta 90 mg daily, Lyrica 400mg daily has not had in the past 4 days
#COPD�no acute exacerbation
Does not use any inhalers
#Nicotine abuse
Half a pack a day x 30 years
Nicotine patch 14 mg
#CBD medical use for depression
#Insomnia
Patient takes doxepin 10 mg at bedtime
DVT prophylaxis
Subcu heparin
Full code
Updated daughter over the phone in details on daily basis
Anticipated Discharge: > 48 hours
Subjective/Interval History
-
Date of Service: October 20, 2025
Remains confused and agitated
requiring restraints
Objective Data
-
Labs:
Laboratory Results
10/20/25
03:44
WBC 4.1 L
Hgb 11.7 L
Hct 34.7 L
Plt Count 66 L
PT 22.0 H
INR 1.90
Sodium 139
Potassium 3.4 L
Chloride 109 H
Carbon Dioxide 26
BUN 14
Creatinine 0.5 L
Glucose 124 H
Calcium 7.6 L
Total Bilirubin 2.4 H
AST 47 H
ALT 36 H
Alkaline Phosphatase 74
Vital Signs:
Vital Signs
Temp Pulse Resp BP Pulse Ox
98.6 F 61 19 123/65 97
10/20/25 11:03 10/20/25 13:00 10/20/25 13:00 10/20/25 13:00 10/20/25 13:00
I&O
10/19/25 10/20/25 10/21/25
06:59 06:59 06:59
Intake Total 2820.6 / 2911.7 4082.1 / 4301.2 1196.2 / 1196.2
Output Total 725 / 740 2070 / 2120 575 / 575
Balance 2095.6 / 2171.7 2012.1 / 2181.2 621.2 / 621.2
Data Reviewed
-
Total Time Spent with Patient (in minutes): 55
[2025-10-20] MEDS: DUPHALAC/CHRONULAC 20 GRAMS PO (14:11)
--- NOTE | 2025-10-20 15:05 | PTCARENOTE ---
Dobhoff placed, Lactulose PO added.
No further changes in assessment.
[2025-10-20] MEDS: ACETADOTE 1053.2 MG IV (16:02)
[2025-10-20] MEDS: DUPHALAC/CHRONULAC 20 GRAMS TUBE ×2 (17:54→21:31)
[2025-10-20] MEDS: ZYPREXA 10 MG IM (19:00)
[2025-10-20] MEDS: STERILE WATER FOR INJECTION 2.1 ML IM (19:00)
--- NOTE | 2025-10-20 20:00 | PTCARENOTE ---
Assumed care at 1900. Sinus linden on the monitor. On acetadote, NS w k, and dex. Patient with intermittent agitation and in 4 pt soft restraints/4 side rails. See worklist for nursing assessment details.
[2025-10-21] VITALS (21 sets, daily range): BP systolic 93–148; BP diastolic 46–92; BMI 24.2
--- NOTE | 2025-10-21 | PTCARENOTE ---
No change from previous assessment. Continues with intermittent agitation. No BM yet.
[2025-10-21] MEDS: PRECEDEX 100 IV ×5 (03:12→21:04)
[2025-10-21 03:14] LABS: Hematocrit 35.1 % (37.0-47.0); Hemoglobin 12.0 g/dL (12.0-16.0); Mean Corp Hgb Conc. 34.2 g/dL (33.0-37.0); Mean Corpuscular Volume 92.1 fL (81.0-99.0); Nucleated Red Blood Cells % 0.6 %; Platelet Count 54 10^3/uL (130-400); Red Cell Dist. Width 15.7 % (11.5-14.5)
[2025-10-21 03:15] LABS: INR 1.93; PT 21.7 Sec (11.4-14.6)
[2025-10-21 03:28] LABS: ALT (SGPT) 35 U/L (0-35); AST (SGOT) 51 U/L (14-36); Albumin 2.8 g/dl (3.5-5.0); Alkaline Phosphatase 85 U/L (38-126); Blood Urea Nitrogen 10 mg/dl (7-17); Calcium 7.8 mg/dl (8.4-10.2); Carbon Dioxide 25 mmol/L (22-30); Chloride 111 mmol/L (98-107); Estimated Creatinine Clearance 118 ml/min; Glucose 125 mg/dl (70-99); Magnesium 1.7 mg/dl (1.6-2.3); Potassium 3.5 mmol/L (3.5-5.1); Sodium 139 mmol/L (135-145); Total Protein 5.6 g/dl (6.3-8.2); eGFR > 60.00
[2025-10-21 03:32] LABS: Ammonia 52 umol/L (9-30)
--- NOTE | 2025-10-21 04:16 | PTCARENOTE ---
No change from previous assessment except patient had small liquid BM.
[2025-10-21] MEDS: ZOSYN 50 IV ×4 (05:05→22:56)
[2025-10-21] MEDS: MAGNESIUM SULFATE 102 GRAMS IV (05:59)
[2025-10-21] MEDS: POTASSIUM PHOSPHATE 259.0909 MEQ IV (06:00)
--- NOTE | 2025-10-21 07:32 | W.PN.GI.CBS2 ---
Today's Communication / Plan
-
Continue day #3/5 NAC
MELD 18, DF 42. Labs stable/improving
DHT in place for nutrition- ok to start. Watch for refeeding
MRI/MRCP when more stable, less agitation for eval of panc head mass and r/o CBD stone. On zosyn. LFTs improving
Assessment / Plan
-
Summary: 60yo with hx neuropathy, ETOH and tobacco abuse with prior admission for crisis with psych placement, COPD, GERD on chronic PPI, back pain with prior back surgery , anxiety/depression with onset of abdominal pain with nausea and
vomiting. She also admits to odynophagia and recently drinking 2 bottle vodka weekly. On admission labs with noted with WBC 19,600, hbg 16.3, platelets 193, INR 1.6, Na 133, K 2,4, BUN 38, creat 1.9, glucose 145, bili 6,3, AST 172, ALT 50, alk
phos 154, troponin 0.083, albumin 4.6, lipase 195. Ct on admission with concern for obstructing pancreatic head mass with biliary and pancreatic ductal dilatation with possible choledocholithiasis, suspected esophagitis, cholelithiasis and
cirrhosis. In review with patient she admits to recent stress. He spouse has passed and she will have period on increased ETOH use. She has been depression and currently not working. She admits to odynophagia, and mid abdominal pain She takes
Advil 1-2 tabs every several days for headaches. Denies anticoagulation use. She may have had EGD 10 years ago did not recall finding and hx tortuous colonoscopy with follow up barium enema about 10 years ago near [facility] that she
recalls as normal. No hx pancreatic or liver issues in past.
10/17/25 CT AP- Suspect heterogeneous obstructing pancreatic head mass with associated biliary and pancreatic ductal dilatation. Questionable choledocholithiasis. Suspect esophagitis. Cholelithiasis. Hepatic cirrhosis
Impression:
Acute on chronic alcoholic liver disease. MELD 29 on admission. NAC started 10/19.
EtOH withdrawal
Pancreatic head mass 1.8cm on CT
-abdominal pain with nausea and vomiting
-abnormal CT without contrast with concern for pancreatic head mass and biliary and pancreatic dilatation with possible choledocholithiasis
-increased LFT's
-cirrhosis per CT with meld 29 based on admission labs
-leukocytosis with elevated lactate and hypotension concern for sepsis on admission
-severe hypokalemia
-sinus tach with PAC's
-esophagitis with odynophagia
-ETOH abuse with recent binge and concern for withdrawal
-RAMA with some improvement after admission
-increased troponin
-coagulopathy
-elevated triglycerides/cholesterol
other med problems:
-tobacco abuse
-anxiety/depression
-COPD
-GERD on chronic PPI prior to admission
-back pain with prior back surgery
Subjective
Subjective
Date of Service: October 21, 2025
Sedated, but arousable, then agitated. DHT in nares
Objective
Data Reviewed
Laboratory Data:
Laboratory Results
10/21/25 02:41
10/21/25 02:42
Laboratory Results
PT 21.7 Sec (11.4-14.6) H 10/21/25 02:42
INR 1.93 10/21/25 02:42
APTT 35.6 Sec (23.4-35.0) H 10/19/25 03:15
Phosphorus 1.3 mg/dl (2.5-4.5) L 10/21/25 02:42
Magnesium 1.7 mg/dl (1.6-2.3) 10/21/25 02:42
Total Bilirubin 2.3 mg/dl (0.2-1.3) H 10/21/25 02:42
AST 51 U/L (14-36) H 10/21/25 02:42
ALT 35 U/L (0-35) 10/21/25 02:42
Alkaline Phosphatase 85 U/L (38-126) 10/21/25 02:42
Lipase 195 U/L (23-300) 10/17/25 19:52
Vital Signs and I&O:
Vital Signs
Temp Pulse Resp BP Pulse Ox
97.5 F 56 17 123/81 100
10/21/25 02:18 10/21/25 06:17 10/21/25 06:17 10/21/25 06:17 10/21/25 06:17
I&O
10/20/25 10/21/25 10/22/25
06:59 06:59 06:59
Intake Total 4082.1 / 4301.2 3649.7 / 3649.7
Output Total 2069 / 2119 2560 / 2560
Balance 2181.2 1089.7 / 1089.7
Physical Exam
Physical Exam
GI: Soft, Non Distended and Non Tender
[2025-10-21] MEDS: CYMBALTA DELAYED RELEASE 60 MG TUBE (07:44)
[2025-10-21] MEDS: VITAMIN B1 100 MG TUBE ×2 (07:44→21:04)
[2025-10-21] MEDS: PHENOBARBITAL 65 MG IV ×3 (07:45→21:04)
[2025-10-21] MEDS: DUPHALAC/CHRONULAC 20 GRAMS TUBE ×4 (07:45→21:04)
[2025-10-21] MEDS: PROTONIX IV 40 MG IV (07:45)
[2025-10-21] MEDS: NSS (PRESERVATIVE FREE) 10 ML IV (07:45)
[2025-10-21] MEDS: FOLVITE 1 MG TUBE (07:46)
--- NOTE | 2025-10-21 08:56 | PTCARENOTE ---
Received pt awake,screaming.speech is slurred.Pt is demanding bottles of vodka and that she be brought her dog.+NERI noted.Spontaneously sitting up in bed and pulling against restraints to remove tubing and get oob.Frequent attempts to reorient
pt.SB-SR noted.IVF,Precedex and Acetadote gtts infusing.O2 2l NC.POX 100%Decreased breath sounds throughout.Dobbhoff intact.No BM.Montesinos draining yellow urine.Scattered bruising noted bl upper extremities.No open carolyn.Attempted to discuss plan of
care.
--- NOTE | 2025-10-21 10:58 | W.PN.INTV ---
Today's Communication / Plan
Recommendations
- Continue lactulose via feeding tube
- Initiate trickle tube feeding
- Continue Precedex and phenobarbital
Assessment
-
Patient is a 60-year-old female who presented to the hospital with nausea vomiting and epigastric pain. Patient also reported history of retrosternal burning sensation. Patient has longstanding history of alcohol use with last drink on 10/15. She
typically drinks 750 mL 2 bottles a week of vodka. Patient had not been taking any of her medications either. In the emergency room patient was noted to be quite dehydrated, hypotensive with elevated lactate along with hypokalemia. She also noted
to have acute kidney injury. CT abdomen pelvis was pursued which was suggestive of an obstructive pancreatic head mass with biliary dilation. Patient was started on broad-spectrum antibiotic, IV fluid resuscitation and was admitted to the
hospitalist service. Patient was evaluated by GI service and MRI/MRCP was recommended for further evaluation of suspected pancreatic mass. Overnight 10/18, patient developed increasing agitation related to alcohol withdrawal and was transferred to
ICU. Patient was loaded with phenobarbital and was started on Precedex infusion. [employer] consultation was requested for further input.
#1. Sepsis with concern for cholangitis with suspected pancreatic head mass
- WBC count improving, serial lactate improving, continue IV fluid resuscitation
- Influenza A, B, COVID-19 screen negative. Blood cultures pending
- Continue broad-spectrum antibiotic with IV Zosyn
- GI service on case, pending MRCP/MRI. Will pursue once encephalopathy further improved.
#2. Severe alcohol withdrawal with acute metabolic encephalopathy and hepatic encephalopathy
- Patient exhibiting signs and symptoms of severe alcohol withdrawal. S/p transfer to ICU on 10/19, currently on Precedex infusion along with phenobarbital taper. Off Ativan while on Phenobarb and Precedex.
- Continue thiamine replacement. VBG not suggestive of hypercapnia. No hypoglycemia noted.
- Monitor closely in the ICU
- UTOX positive for tricyclic's, benzodiazepine and marijuana
- 10/20, persistent encephalopathy noted, stat Ammonia checked, elevated. Placed NG tube initiated Lactulose PO. Had 2 small BMs overnight.
#3. Alcohol use disorder with acute alcoholic hepatitis
- Liver function test improving
- Steroids not initiated due to concern for cholangitis/infection
- Continue to monitor LFTs
- D/w GI service 10/19, initiated NAC infusion.
#4. Lactic acidosis on admission
- Gradually improving with IV fluid resuscitation, 3.2 > 1.5
- Sepsis, dehydration and alcohol resume in differential diagnosis
- Beta-hydroxybutyrate minimally elevated at 1.09
- Continue IV fluids and broad-spectrum antibiotics
#5. RAMA on admission
- Resolving with IVF resuscitation, 1.9 > 0.8
#6. Hypokalemia, Hyponatremia
- Gradually improving with IV fluids and potassium replacement
- Added Kcl in NS infusion
- F.u Labs improving.
#7. Thrombocytopenia with coagulopathy
- INR 1.95, PTT 35.6
- hold s.c Heparin
#8. QTc prolongation
- Continue to replace potassium, target more than 4, magnesium more than 2
- QTc improved on f/u EKG on 10/20.
#9. H/o Smoking and COPD
- Not in acute exacerbation
Other medical diagnoses:
- Minimal troponin elevation
- Suspected esophagitis
- Neuropathy, suspect related to alcoholism
- History of depression with CBD use
- Insomnia
Critical Care time 43 min - The patient is admitted for acute critical illness for the treatment of vital organ failure and/or prevention of further life-threatening conditions. Total care includes time spent in review of history, physical exam,
medications, hemodynamic/ventilator parameters, laboratory data, imaging and discussion with house staff, pharmacy, respiratory therapy, seconds handler, and nursing.
Data:
EKG 10/17: QTc 561
CXR 10/2025: No acute change
CT A/P 10/2025: 1. Suspect heterogeneous obstructing pancreatic head mass with associated biliary and pancreatic ductal dilatation. Questionable choledocholithiasis. This can be further evaluated with MRI/MRCP abdomen without and with gadolinium
contrast.
2. Suspect esophagitis.
3. Cholelithiasis.
4. Hepatic cirrhosis.
Subjective Dataa
Subjective Data
Date of Service:
Date of Service: October 21, 2025
Subjective:
Patient currently mildly sedated on Precedex infusion.
Review of Systems
General: Unobtainable - Sedation
Objective Data
Data Reviewed
Vital Signs / I&O / Oxygen:
Vital Signs
Temp Pulse Resp BP Pulse Ox
97.4 F 57 19 101/57 100
10/21/25 08:00 10/21/25 08:00 10/21/25 08:00 10/21/25 08:00 10/21/25 08:00
Intake and Output
10/20/25 10/21/25 10/22/25
06:59 06:59 06:59
Intake Total 4082.1 / 4301.2 3649.7 / 3801.3 303.2 / 303.2
Output Total 2070 / 2120 2560 / 2560 125 / 125
Balance 2012.1 / 2181.2 1089.7 / 1241.3 178.2 / 178.2
SaO2 100
Nasal Cannula flow liters per 2
minute
Physical Exam
General: Comfortable
HEENT: Normocephalic
Cardiovascular: S1-S2
Respiratory: Clear
GI: Soft and Non Distended
Neurology: Other (Intermittently agitated or sedated.)
Skin: Warm
Labs/Micro/Reports
Lab Data
10/21/25 02:41
10/21/25 02:42
Laboratory Results
10/21/25
02:42
PT 21.7 H
INR 1.93
Microbiology
10/18/25 11:39 Blood/Venous Blood Culture - Preliminary
No Growth in 48 hours- Final report to follow
10/18/25 11:54 Blood/Venous Blood Culture - Preliminary
No Growth in 48 hours- Final report to follow
--- NOTE | 2025-10-21 12:00 | VATNOTE ---
Picc order in place. bilateral vein was accessed sucessfully with good blood return. Multiple attempts were made to advance the guidewire however the guidewire could not be advanced despite adequate venous access. Primary Rn made aware.
[2025-10-21] MEDS: NSS with KCL 20 MEQ 1000 IV (12:08)
--- NOTE | 2025-10-21 12:29 | PTCARENOTE ---
Pt assessed.No change in assessment noted.VAT RN unable to access PICC.Cyr made aware.Intermittent periods of increased agitation, attempting to get oob noted.
--- NOTE | 2025-10-21 12:33 | W.PN.HOSP.TC ---
Today's Communication/Plan
-
Continue with IV Zosyn
Tube feeding
Monitor for refeeding syndrome
Continue with phenobarbital
Monitor electrolytes closely
Assessment / Plan
Assessment / Plan
General: Agitated
HEENT: NormoCephalic, Anicteric, , [place] Conjunctivae, No Ptosis and Other (Dry oral mucosa)
Respiratory: Clear; No Wheezes, Rales or Rhonchi
Cardiac: S1/S2 regular rhythm
GI: Soft, Non Distended, Normal Bowel Sounds,
Genito-urinary: Montesinos catheter with yellow color urine noted
Musculoskeletal: No Clubbing, No Cyanosis, No Edema and Other (Missing right great toe status post amputation)
Skin: Warm and Dry;
Neuro: Intermittently opens eyes and becomes agitated
Psych: sedated, was agitated earlier
#Toxic metabolic encephalopathy secondary to delirium tremens and secondary to severe alcohol withdrawal and also concern for possible hepatic encephalopathy
#Alcohol abuse
#Acute on chronic alcoholic liver disease
Drinks 750 mL vodka 2 bottles a week last drink was 10/15/2025
Started on phenobarbital regimen with loading dose
Currently on Precedex infusion
Continue with ICU level of care
Continue with alcohol withdrawal protocol
Lactulose QID
Remains in restraints
Plan to start trickle TF-Monitor for refeeding syndrome. Check mag/phos daily for now
#Sepsis with elevated lactate likely secondary to obstructing pancreatic head mass versus secondary to cholangitis with possible CBD stone
# Abdominal pain, nausea and vomiting
#Lactic acidosis
MRCP pending-unstable to undergo further imaging due to mentation
Zosyn renal dose
Cont with IVF.
f/u on blood cultures remains negative
Lactic acidosis resolved.
GI following
# Acute alcoholic hepatitis
#Hepatic cirrhosis per CT scan
#Coagulopathy
Follow CMP. Elevated MELD score.
hep panel serologies negative
Was started on IV NAC protocol
Elevated INR. T. bili downtrending.
Monitor platelet seems to be downtrending.
Gastroenterology following
#Thrombocytopenia
-trend platelet for now
#Acute hypokalemia 2/2 vomiting/alcohol use
replete/monitor
#RAMA 2/2 vomiting
Creatinine 1.9/bun 38 prior creatinine 0.6 06/2024
Creatinine continues to downtrend.
Continue IV IV fluids for now
Creatinine downtrending and improving
# Nonischemic myocardial injury
No active chest pain has esophageal burning only secondary to his esophagitis
Troponin has downtrended
No EKG
#Hypophosphatemia
Replete monitor
#Esophagitis per CT
IV Protonix 40 mg now on daily
May require EGD eventually. Will defer to GI
#Chronic neuropathy
Typically takes Cymbalta 90 mg daily, Lyrica 400mg daily has not had in the past 4 days
#COPD�no acute exacerbation
Does not use any inhalers
#Nicotine abuse
Half a pack a day x 30 years
Nicotine patch 14 mg
#CBD medical use for depression
#Insomnia
Patient takes doxepin 10 mg at bedtime
DVT prophylaxis
Subcu heparin
Full code
Updated daughter over the phone in details on daily basis
Anticipated Discharge: > 48 hours
Subjective/Interval History
-
Date of Service: October 21, 2025
Continues to remain agitated and confused
Montesinos catheter with good urinary output
DHT was placed
Remains on Precedex infusion
Objective Data
-
Labs:
Laboratory Results
10/21/25 10/21/25
02:41 02:42
WBC 3.2 L
Hgb 12.0
Hct 35.1 L
Plt Count 54 L
PT 21.7 H
INR 1.93
Sodium 139
Potassium 3.5
Chloride 111 H
Carbon Dioxide 25
BUN 10
Creatinine 0.4 L
Glucose 125 H
Calcium 7.8 L
Total Bilirubin 2.3 H
AST 51 H
ALT 35
Alkaline Phosphatase 85
Vital Signs:
Vital Signs
Temp Pulse Resp BP Pulse Ox
97.4 F 55 15 130/73 100
10/21/25 08:00 10/21/25 11:00 10/21/25 11:00 10/21/25 10:00 10/21/25 09:00
I&O
10/20/25 10/21/25 10/22/25
06:59 06:59 06:59
Intake Total 4082.1 / 4301.2 3649.7 / 3801.3 906.0 / 906.0
Output Total 2070 / 2120 2560 / 2560 570 / 570
Balance 2012.1 / 2181.2 1089.7 / 1241.3 336.0 / 336.0
Data Reviewed
-
Total Time Spent with Patient (in minutes): 55
--- NOTE | 2025-10-21 15:03 | CM ---
Chart reviewed. Care ongoing
TF
Remains in restraints
MRCP/MRI pending. GI following
[2025-10-21] MEDS: ACETADOTE 1053.2 MG IV (16:11)
--- NOTE | 2025-10-21 16:38 | PTCARENOTE ---
Pt assessed.Intermittently very agitated,screaming and attempting to exit the bed.No change in assessment noted.
--- NOTE | 2025-10-21 20:00 | PTCARENOTE ---
Assumed care at 1900. Son at bedside. Patient on acetadote, IVF NS with k, and dex. [address]-patient with intermittent agitation. Sinus linden on the monitor. See worklist for nursing assessment details.
[2025-10-21] MEDS: ZYPREXA 10 MG IM (21:48)
[2025-10-21] MEDS: STERILE WATER FOR INJECTION 2.1 ML IM (21:49)
[2025-10-22] VITALS (19 sets, daily range): BP systolic 99–152; BP diastolic 71–104; BMI 24.9
--- NOTE | 2025-10-22 | PTCARENOTE ---
Addendum entered by Natalie Mao RN 10/22/25 03:40:
IM zyprexa ordered and given for agitation.
Original Note:
No change from previous assessment. Continues with intermittent agitation. Incontinent of stool x2 s/p lactulose.
[2025-10-22] MEDS: NSS with KCL 20 MEQ 1000 IV (00:35)
[2025-10-22] MEDS: PRECEDEX 100 IV ×6 (00:35→21:38)
[2025-10-22] MEDS: ZOSYN 50 IV ×4 (04:14→22:00)
[2025-10-22 04:26] LABS: INR 1.98; PT 22.1 Sec (11.4-14.6)
[2025-10-22 04:38] LABS: ALT (SGPT) 35 U/L (0-35); AST (SGOT) 42 U/L (14-36); Albumin 2.8 g/dl (3.5-5.0); Alkaline Phosphatase 90 U/L (38-126); Ammonia 37 umol/L (9-30); Blood Urea Nitrogen 3 mg/dl (7-17); Calcium 7.9 mg/dl (8.4-10.2); Carbon Dioxide 21 mmol/L (22-30); Chloride 108 mmol/L (98-107); Estimated Creatinine Clearance 118 ml/min; Glucose 138 mg/dl (70-99); Magnesium 1.5 mg/dl (1.6-2.3); Potassium 3.2 mmol/L (3.5-5.1); Sodium 135 mmol/L (135-145); Total Protein 5.5 g/dl (6.3-8.2); eGFR > 60.00
[2025-10-22] MEDS: MAGNESIUM SULFATE 50 IV ×2 (05:05→10:14)
[2025-10-22] MEDS: KCL 270 MEQ IV (05:05)
[2025-10-22 05:34] LABS: Hematocrit 33.8 % (37.0-47.0); Hemoglobin 11.5 g/dL (12.0-16.0); Mean Corp Hgb Conc. 34.0 g/dL (33.0-37.0); Mean Corpuscular Volume 91.4 fL (81.0-99.0); Nucleated Red Blood Cells % 0 %; Platelet Count 63 10^3/uL (130-400); Red Cell Dist. Width 15.8 % (11.5-14.5)
--- NOTE | 2025-10-22 05:46 | PTCARENOTE ---
No change from previous assessment except patient with periods of lucidity. Continues to thrash around in the bed and screaming. Patient screams when left arm is touched or moved. ICU provider made aware and ordered xray.
[2025-10-22] MEDS: SODIUM PHOSPHATE 255 MEQ IV (06:15)
--- NOTE | 2025-10-22 06:38 | W.PN.GI.CBS2 ---
Today's Communication / Plan
-
Continue IV NAC gtt (02/06) for total of 5 days, continue to trend daily MELD labs while inpatient. Agree with IV Zosyn while inpatient. Will need eventual MRI/MRCP pending clinical course. Rest of care as below.
Assessment / Plan
-
Summary: 60yo with hx neuropathy, ETOH and tobacco abuse with prior admission for crisis with psych placement, COPD, GERD on chronic PPI, back pain with prior back surgery , anxiety/depression with onset of abdominal pain with nausea and
vomiting. She also admits to odynophagia and recently drinking 2 bottle vodka weekly. On admission labs with noted with WBC 19,600, hbg 16.3, platelets 193, INR 1.6, Na 133, K 2,4, BUN 38, creat 1.9, glucose 145, bili 6,3, AST 172, ALT 50, alk
phos 154, troponin 0.083, albumin 4.6, lipase 195. Ct on admission with concern for obstructing pancreatic head mass with biliary and pancreatic ductal dilatation with possible choledocholithiasis, suspected esophagitis, cholelithiasis and
cirrhosis. In review with patient she admits to recent stress. He spouse has passed and she will have period on increased ETOH use. She has been depression and currently not working. She admits to odynophagia, and mid abdominal pain She takes
Advil 1-2 tabs every several days for headaches. Denies anticoagulation use. She may have had EGD 10 years ago did not recall finding and hx tortuous colonoscopy with follow up barium enema about 10 years ago near [facility] that she
recalls as normal. No hx pancreatic or liver issues in past.
10/17/25 CT AP- Suspect heterogeneous obstructing pancreatic head mass with associated biliary and pancreatic ductal dilatation. Questionable choledocholithiasis. Suspect esophagitis. Cholelithiasis. Hepatic cirrhosis
Impression:
Acute on chronic alcoholic liver disease. MELD 29 on admission. NAC started 10/19.
EtOH withdrawal
Pancreatic head mass 1.8cm on CT
-abdominal pain with nausea and vomiting
-abnormal CT without contrast with concern for pancreatic head mass and biliary and pancreatic dilatation with possible choledocholithiasis
-increased LFT's
-cirrhosis per CT with meld 29 based on admission labs
-leukocytosis with elevated lactate and hypotension concern for sepsis on admission
-severe hypokalemia
-sinus tach with PAC's
-esophagitis with odynophagia
-ETOH abuse with recent binge and concern for withdrawal
-RAMA with some improvement after admission
-increased troponin
-coagulopathy
-elevated triglycerides/cholesterol
other med problems:
-tobacco abuse
-anxiety/depression
-COPD
-GERD on chronic PPI prior to admission
-back pain with prior back surgery
Recommendations:
- Continue TFs via DHT, monitor for refeeding syndrome
- F/u AM labs, continue to trend daily MELD labs- CMP, INR and CBC.
- Prior MELD of 29 on admission and improving with prior MELD 18 on labs 10/21
- Continue IV NAC gtt, now day 02/06
- Would continue to hold steroids given c/f infection and recent fevers
- Continue infectious w/u as per primary team and agree with IV Zosyn
- Needs eventual MRI/MRCP WWO contrast once she is no longer in EtOH withdrawal / less agitated given previous c/f double duct sign
- Rest of care as per primary team
GI will continue to follow, please call with any questions/concerns.
Subjective
Subjective
Date of Service: October 22, 2025
- Remains on IV Nac gtt (day 02/06), pending repeat AM labs to re-calculate MELD
- Not a candidate for steroids due to concern for possible infection and remains on IV Zosyn
- Otherwise, no acute events overnight. Febrile this AM with T Max of 100.6
Currently in active withdrawal, remains on IV Zosyn and phenobarbital. Agitated this AM, DHT in place. Endorsing right shoulder pain but rest limited dueto agitation.
Objective
Data Reviewed
Laboratory Data:
Laboratory Results
10/22/25 04:00
Laboratory Results
PT 22.1 Sec (11.4-14.6) H 10/22/25 04:00
INR 1.98 10/22/25 04:00
APTT 35.6 Sec (23.4-35.0) H 10/19/25 03:15
Phosphorus 1.4 mg/dl (2.5-4.5) L 10/22/25 04:00
Magnesium 1.5 mg/dl (1.6-2.3) L 10/22/25 04:00
Total Bilirubin 2.2 mg/dl (0.2-1.3) H 10/22/25 04:00
AST 42 U/L (14-36) H 10/22/25 04:00
ALT 35 U/L (0-35) 10/22/25 04:00
Alkaline Phosphatase 90 U/L (38-126) 10/22/25 04:00
Lipase 195 U/L (23-300) 10/17/25 19:52
Vital Signs and I&O:
Vital Signs
Temp Pulse Resp BP Pulse Ox
97.8 F 83 14 138/96 97
10/22/25 03:09 10/22/25 06:00 10/22/25 06:00 10/22/25 06:00 10/22/25 06:00
I&O
10/20/25 10/21/25 10/22/25
06:59 06:59 06:59
Intake Total 4082.1 / 4301.2 3649.7 / 3801.3 3668.6 / 3668.6
Output Total 2069 / 0 2560 / 2560 2925 / 2925
Balance 2181.2 1089.7 / 1241.3 743.6 / 743.6
Physical Exam
Physical Exam
HEENT: Anicteric and Moist mucous membranes
Cardiology: Other (RR on tele)
Pulmonary: Other (Normal WOB on room air)
GI: Soft, Non Distended and Non Tender
Neuro: Non Focal
--- NOTE | 2025-10-22 06:39 | PTCARENOTE ---
Patient stated that she 'wanted to kill herself.'. When asked if she had a plan she said 'yes.' When details of plan asked, patient stated 'TOOOOOO DIEEEEEEEEEE TO KILLLLL [id number].' Suicide screening on worklist filled out. ICU provider made aware
and initiated 1:1 for suicide precautions.
[2025-10-22] MEDS: DUPHALAC/CHRONULAC TUBE ×2 (07:24→16:33)
[2025-10-22] MEDS: VITAMIN B1 100 MG TUBE ×2 (07:39→19:37)
[2025-10-22] MEDS: FOLVITE 1 MG TUBE (07:39)
[2025-10-22] MEDS: LUMINAL 32.4 MG TUBE ×3 (07:39→21:05)
--- NOTE | 2025-10-22 08:47 | PTCARENOTE ---
dht replaced as it was occluded. attempted to flush without success, attempted siri aleks but unable to flush. placed with minimal difficulty. xray pending.
[2025-10-22] MEDS: NSS (PRESERVATIVE FREE) 10 ML IV (09:47)
[2025-10-22] MEDS: PROTONIX IV 40 MG IV (09:48)
[2025-10-22] MEDS: KCL ELIXIR 40 MEQ TUBE ×2 (10:14→17:44)
[2025-10-22] MEDS: SODIUM PHOSPHATE 260 MEQ IV (10:26)
--- NOTE | 2025-10-22 10:33 | PTCARENOTE ---
additional electrolytes given and infusing as ordered. Dr Aranda in to see pt and updated.
--- NOTE | 2025-10-22 11:22 | W.PN.HOSP.TC ---
Today's Communication/Plan
-
Continue with tube feeding
Replete electrolytes aggressively
May require diuresis
Continue with IV antibiotics
Assessment / Plan
Assessment / Plan
General: Agitated
HEENT: NormoCephalic, Anicteric, , No Ptosis and Other (Dry oral mucosa)
Respiratory: Clear; No Wheezes, Rales or Rhonchi
Cardiac: S1/S2 regular rhythm
GI: Soft, Non Distended, Normal Bowel Sounds, DHT noted
Genito-urinary: Montesinos catheter with yellow color urine noted
Musculoskeletal: No Clubbing, No Cyanosis, No Edema and Other (Missing right great toe status post amputation)
Skin: Warm and Dry;
Neuro: Intermittently opens eyes and becomes agitated
Psych: sedated, was agitated earlier
#Toxic metabolic encephalopathy secondary to delirium tremens and secondary to severe alcohol withdrawal and also concern for possible hepatic encephalopathy
#Alcohol abuse
#Acute on chronic alcoholic liver disease
Drinks 750 mL vodka 2 bottles a week last drink was 10/15/2025
Started on phenobarbital regimen with loading dose
Currently on Precedex infusion
Continue with ICU level of care
Continue with alcohol withdrawal protocol
Lactulose 3 times daily
Remains in restraints
Plan to start trickle TF-Monitor for refeeding syndrome. Check mag/phos daily for now and replete aggressively.
Patient may require diuresis as increasing amount of IV fluids.
#Sepsis with elevated lactate likely secondary to obstructing pancreatic head mass versus secondary to cholangitis with possible CBD stone
# Abdominal pain, nausea and vomiting
#Lactic acidosis
MRCP pending-unstable to undergo further imaging due to mentation
Zosyn renal dose
Cont with IVF.
f/u on blood cultures remains negative
Lactic acidosis resolved.
GI following
# Acute alcoholic hepatitis
#Hepatic cirrhosis per CT scan
#Coagulopathy
Follow CMP. Elevated MELD score.
hep panel serologies negative
Was started on IV NAC protocol
Elevated INR. T. bili downtrending.
Monitor platelet seems to be downtrending.
Gastroenterology following
#Thrombocytopenia
-trend platelet for now
#Acute hypokalemia 2/2 vomiting/alcohol use
replete/monitor
#RAMA 2/2 vomiting
Creatinine 1.9/bun 38 prior creatinine 0.6 06/2024
Creatinine continues to downtrend.
Continue IV fluids for now
Creatinine downtrending and improving
# Nonischemic myocardial injury
No active chest pain has esophageal burning only secondary to his esophagitis
Troponin has downtrended
No EKG
#Suicidal ideation unclear based on mentation
Suicide precaution. One-to-one continued.
Once mentation improves will need Psych consult
Pt has made SI in the past per daughter
#Hypophosphatemia
Replete monitor
#Esophagitis per CT
IV Protonix 40 mg now on daily
May require EGD eventually. Will defer to GI
#Chronic neuropathy
Typically takes Cymbalta 90 mg daily, Lyrica 400mg daily has not had in the past 4 days
#COPD�no acute exacerbation
Does not use any inhalers
#Nicotine abuse
Half a pack a day x 30 years
Nicotine patch 14 mg
#CBD medical use for depression
#Insomnia
Patient takes doxepin 10 mg at bedtime
DVT prophylaxis
Subcu heparin
Full code
Updated daughter over the phone in details on daily basis
Anticipated Discharge: > 48 hours
Subjective/Interval History
-
Date of Service: October 22, 2025
Overnight events noted
Patient remains agitated
Opens eyes and intermittent conversation
Objective Data
-
Labs:
Laboratory Results
10/22/25 10/22/25 10/22/25
04:00 14:00 17:00
WBC 4.2 L
Hgb 11.5 L
Hct 33.8 L
Plt Count 63 L
PT 22.1 H
INR 1.98
Sodium 135 Cancelled Pending
Potassium 3.2 L Cancelled Pending
Chloride 108 H Cancelled Pending
Carbon Dioxide 21 L Cancelled Pending
BUN 3 L Cancelled Pending
Creatinine 0.4 L Cancelled Pending
Glucose 138 H Cancelled Pending
Calcium 7.9 L Cancelled Pending
Total Bilirubin 2.2 H
AST 42 H
ALT 35
Alkaline Phosphatase 90
Vital Signs:
Vital Signs
Temp Pulse Resp BP Pulse Ox
100.6 F H 83 14 138/96 97
10/22/25 08:00 10/22/25 06:00 10/22/25 06:00 10/22/25 06:00 10/22/25 06:00
I&O
10/21/25 10/22/25 10/23/25
06:59 06:59 06:59
Intake Total 3649.7 / 3801.3 3668.6 / 4016.3 1186.3 / 1186.3
Output Total 2560 / 2560 2925 / 2960 150 / 150
Balance 1089.7 / 1241.3 743.6 / 1056.3 1036.3 / 1036.3
Data Reviewed
-
Total Time Spent with Patient (in minutes): 55
--- NOTE | 2025-10-22 12:20 | W.PN.INTV ---
Today's Communication / Plan
Recommendations
- Lowered lactulose dosing to 3 times daily
- Replace potassium, magnesium and phosphorous
- Continue trickle feed only, risk of refeeding syndrome
- Discontinue normal saline with potassium infusion
Assessment
-
Patient is a 60-year-old female who presented to the hospital with nausea vomiting and epigastric pain. Patient also reported history of retrosternal burning sensation. Patient has longstanding history of alcohol use with last drink on 10/15. She
typically drinks 750 mL 2 bottles a week of vodka. Patient had not been taking any of her medications either. In the emergency room patient was noted to be quite dehydrated, hypotensive with elevated lactate along with hypokalemia. She also noted
to have acute kidney injury. CT abdomen pelvis was pursued which was suggestive of an obstructive pancreatic head mass with biliary dilation. Patient was started on broad-spectrum antibiotic, IV fluid resuscitation and was admitted to the
hospitalist service. Patient was evaluated by GI service and MRI/MRCP was recommended for further evaluation of suspected pancreatic mass. Overnight 10/18, patient developed increasing agitation related to alcohol withdrawal and was transferred to
ICU. Patient was loaded with phenobarbital and was started on Precedex infusion. Dowel Pin Worker consultation was requested for further input.
#1. Sepsis with concern for cholangitis with suspected pancreatic head mass
- WBC count improving, serial lactate improving
- Influenza A, B, COVID-19 screen negative. Blood cultures pending
- Continue broad-spectrum antibiotic with IV Zosyn
- GI service on case, pending MRCP/MRI. Will pursue once encephalopathy further improved.
#2. Severe alcohol withdrawal with acute metabolic encephalopathy and hepatic encephalopathy
- Patient exhibiting signs and symptoms of severe alcohol withdrawal. S/p transfer to ICU on 10/19, currently on Precedex infusion along with phenobarbital taper. Off Ativan while on Phenobarb and Precedex.
- Continue thiamine replacement. VBG not suggestive of hypercapnia. No hypoglycemia noted.
- Monitor closely in the ICU
- UTOX positive for tricyclic's, benzodiazepine and marijuana
- 10/20, persistent encephalopathy noted, stat Ammonia checked, elevated. Placed NG tube initiated Lactulose PO. Had 2 small BMs overnight.
- 10/22, responding to lactulose, having bowel movements. Intermittently more alert, makes eye contact, able to say few words. Gradually improving.
#3. Alcohol use disorder with acute alcoholic hepatitis
- Liver function test improving
- Steroids not initiated due to concern for cholangitis/infection
- Continue to monitor LFTs
- D/w GI service 10/19, initiated NAC infusion.
#4. Lactic acidosis on admission
- Gradually improving with IV fluid resuscitation, 3.2 > 1.5
- Sepsis, dehydration and alcohol resume in differential diagnosis
- Beta-hydroxybutyrate minimally elevated at 1.09
- Continue IV fluids and broad-spectrum antibiotics
#5. RAMA on admission
- Resolved with IVF resuscitation, 1.9 > 0.8
#6. Hypokalemia, Hyponatremia
- Gradually improving with IV fluids and potassium replacement
- Added Kcl in NS infusion
- F.u Labs improving.
#7. Thrombocytopenia with coagulopathy
- INR 1.95, PTT 35.6
- hold s.c Heparin
#8. QTc prolongation
- Continue to replace potassium, target more than 4, magnesium more than 2
- QTc improved on f/u EKG on 10/20.
#9. H/o Smoking and COPD
- Not in acute exacerbation
Other medical diagnoses:
- Minimal troponin elevation
- Suspected esophagitis
- Neuropathy, suspect related to alcoholism
- History of depression with CBD use
- Insomnia
Critical Care time 43 min - The patient is admitted for acute critical illness for the treatment of vital organ failure and/or prevention of further life-threatening conditions. Total care includes time spent in review of history, physical exam,
medications, hemodynamic/ventilator parameters, laboratory data, imaging and discussion with house staff, pharmacy, respiratory therapy, tailings dam laborer, and nursing.
Data:
EKG 10/17: QTc 561
CXR 10/2025: No acute change
CT A/P 10/2025: 1. Suspect heterogeneous obstructing pancreatic head mass with associated biliary and pancreatic ductal dilatation. Questionable choledocholithiasis. This can be further evaluated with MRI/MRCP abdomen without and with gadolinium
contrast.
2. Suspect esophagitis.
3. Cholelithiasis.
4. Hepatic cirrhosis.
Subjective Dataa
Subjective Data
Date of Service:
Date of Service: October 22, 2025
Subjective:
Patient lying in bed, appears to be more alert and awake.
Review of Systems
General: Unobtainable - Sedation
Objective Data
Data Reviewed
Vital Signs / I&O / Oxygen:
Vital Signs
Temp Pulse Resp BP Pulse Ox
100.6 F H 83 14 138/96 97
10/22/25 08:00 10/22/25 06:00 10/22/25 06:00 10/22/25 06:00 10/22/25 06:00
Intake and Output
10/21/25 10/22/25 10/23/25
06:59 06:59 06:59
Intake Total 3649.7 / 3801.3 3668.6 / 4016.3 1614.4 / 1614.4
Output Total 2560 / 2560 2925 / 2960 300 / 300
Balance 1089.7 / 1241.3 743.6 / 1056.3 1314.4 / 1314.4
SaO2 97
Nasal Cannula flow liters per 2
minute
Physical Exam
General: Comfortable
HEENT: Normocephalic
Cardiovascular: S1-S2
Respiratory: Clear
GI: Soft and Non Distended
Neurology: Other (Intermittently agitated or sedated.)
Skin: Warm
Labs/Micro/Reports
Lab Data
10/22/25 04:00
Laboratory Results
10/22/25
04:00
PT 22.1 H
INR 1.98
Microbiology
10/18/25 11:39 Blood/Venous Blood Culture - Preliminary
No Growth in 4 days- Final report to follow
10/18/25 11:54 Blood/Venous Blood Culture - Preliminary
No Growth in 4 days- Final report to follow
--- NOTE | 2025-10-22 12:21 | PTCARENOTE ---
Pt remains confused/restless at times. Intermittently talking, trying to get out of bed, pulling at dht. Mumbling. Had explosive bm requiring entire bed to be changed. Rectal trumpet placed. Weaning precedex slowly as able. Maintained on 1:1
for suicide precautions as pt intermittently speaking of self harm when able to understand speech. Otherwise please refer to work list.
[2025-10-22] MEDS: ACETADOTE 1053.2 MG IV (14:55)
--- NOTE | 2025-10-22 15:25 | PTCARENOTE ---
systems reviewed. No changes. Pt slept for over 2 hours. Had to draw repeat labs from L foot. After repositioning, pt yelling, agitated and threatening staff crying out, kicking on bed board. Asking for phone and purse. Then fell asleep.
Rectal trumpet replaced, incontinent of small loose stool. Maintained 1:1. Dr Aponte aware repeat labs completed.
[2025-10-22 16:55] LABS: Blood Urea Nitrogen 2 mg/dl (7-17); Calcium 7.6 mg/dl (8.4-10.2); Carbon Dioxide 21 mmol/L (22-30); Chloride 105 mmol/L (98-107); Estimated Creatinine Clearance 118 ml/min; Glucose 150 mg/dl (70-99); Potassium 3.5 mmol/L (3.5-5.1); Sodium 133 mmol/L (135-145); eGFR > 60.00
--- NOTE | 2025-10-22 17:29 | PTCARENOTE ---
Daughter in to see pt and updated. She brought in blue colored blanket with initial CSM.
[2025-10-22] MEDS: OFIRMEV 100 IV (19:58)
--- NOTE | 2025-10-22 20:05 | PTCARENOTE ---
Received pt from previous RN. Pt is AAOx2 (time), confused/forgetful, drowsy, restless, agitated, anxious. Pt wanting to get up out of bed, kicking her legs against the end of the bed, 4 point restraints and mitts in place, attempting to redirecting
the pt. NSR/sinus linden on the monitor, doppler pedals. Pt on RA O2 sat 98%, lungs diminished. DHT in place, Jevity 1.5 at 10 ml/hr, 25 ml water flush. Rectal tube in place. Montesinos in place for I&O, temp sensing. Dext gtt (see worklist). SCDs in
place. Temp of 101.4, Ofirmev x1 ordered (see MAR), blankets taken off pt, sheet provided. 1:[address] Mouth care provided. Safe environment maintained.
[2025-10-22] MEDS: DUPHALAC/CHRONULAC 20 GRAMS TUBE (21:05)
--- NOTE | 2025-10-22 23:52 | PTCARENOTE ---
Temp 101, cooling blanket applied. BC, labs and a UA sent.
[2025-10-23] VITALS (27 sets, daily range): BP systolic 85–117; BP diastolic 49–85; BMI 25.5
[2025-10-23] LABS: Urine Character Clear (Clear)
[2025-10-23 00:05] LABS: ALT (SGPT) 30 U/L (0-35); AST (SGOT) 38 U/L (14-36); Albumin 2.6 g/dl (3.5-5.0); Alkaline Phosphatase 99 U/L (38-126); Blood Urea Nitrogen 2 mg/dl (7-17); Calcium 7.9 mg/dl (8.4-10.2); Carbon Dioxide 20 mmol/L (22-30); Chloride 107 mmol/L (98-107); Estimated Creatinine Clearance 118 ml/min; Glucose 152 mg/dl (70-99); Magnesium 1.9 mg/dl (1.6-2.3); Potassium 3.8 mmol/L (3.5-5.1); Sodium 130 mmol/L (135-145); Total Protein 5.3 g/dl (6.3-8.2); eGFR > 60.00
[2025-10-23 00:16] LABS: Urine Red Blood Cell 0-2 /HPF (0-2)
[2025-10-23 00:44] LABS: Hematocrit 35.8 % (37.0-47.0); Hemoglobin 12.6 g/dL (12.0-16.0); Mean Corp Hgb Conc. 35.2 g/dL (33.0-37.0); Mean Corpuscular Volume 90.2 fL (81.0-99.0); Nucleated Red Blood Cells % 0.3 %; Platelet Count 81 10^3/uL (130-400); Red Cell Dist. Width 16.0 % (11.5-14.5)
[2025-10-23] MEDS: PRECEDEX 100 IV ×4 (00:59→15:06)
[2025-10-23] MEDS: MAGNESIUM SULFATE 102 GRAMS IV (01:22)
[2025-10-23] MEDS: KCL 260 MEQ IV (01:38)
[2025-10-23] MEDS: OFIRMEV 100 IV (03:01)
--- NOTE | 2025-10-23 03:55 | PTCARENOTE ---
Systems reviewed, no new changes in assessment.
[2025-10-23] MEDS: ZOSYN 50 IV ×4 (04:15→22:58)
[2025-10-23] MEDS: SODIUM PHOSPHATE 255 MEQ IV ×2 (04:31→17:33)
--- NOTE | 2025-10-23 07:01 | W.PN.GI.CBS2 ---
Addendum entered and electronically signed by Wolfgang Daniel DO 10/23/25 08:51:
Discussed with pharmacy, can do oral vitamin K challenge via tube. Start oral vitamin 5 mg x 3 days.
Original Note:
Today's Communication / Plan
-
Last day of IV NAC gtt and start IV Vitamin K if component of malnutrition given INR. Agree with IV antibiotics, infectious work-up and would continue to hold steroids as contraindicated. Rest of care as outlined below.
Assessment / Plan
-
Summary: 60yo with hx neuropathy, ETOH and tobacco abuse with prior admission for crisis with psych placement, COPD, GERD on chronic PPI, back pain with prior back surgery , anxiety/depression with onset of abdominal pain with nausea and
vomiting. She also admits to odynophagia and recently drinking 2 bottle vodka weekly. On admission labs with noted with WBC 19,600, hbg 16.3, platelets 193, INR 1.6, Na 133, K 2,4, BUN 38, creat 1.9, glucose 145, bili 6,3, AST 172, ALT 50, alk
phos 154, troponin 0.083, albumin 4.6, lipase 195. Ct on admission with concern for obstructing pancreatic head mass with biliary and pancreatic ductal dilatation with possible choledocholithiasis, suspected esophagitis, cholelithiasis and
cirrhosis. In review with patient she admits to recent stress. He spouse has passed and she will have period on increased ETOH use. She has been depression and currently not working. She admits to odynophagia, and mid abdominal pain She takes
Advil 1-2 tabs every several days for headaches. Denies anticoagulation use. She may have had EGD 10 years ago did not recall finding and hx tortuous colonoscopy with follow up barium enema about 10 years ago near [facility] that she
recalls as normal. No hx pancreatic or liver issues in past.
10/17/25 CT AP- Suspect heterogeneous obstructing pancreatic head mass with associated biliary and pancreatic ductal dilatation. Questionable choledocholithiasis. Suspect esophagitis. Cholelithiasis. Hepatic cirrhosis
#Acute on chronic alcoholic liver disease. MELD 29 on admission. NAC started 10/19.
#EtOH withdrawal
#Pancreatic head mass 1.8cm on CT
Other Medical Problems:
-abdominal pain with nausea and vomiting
-abnormal CT without contrast with concern for pancreatic head mass and biliary and pancreatic dilatation with possible choledocholithiasis
-increased LFT's
-cirrhosis per CT with meld 29 based on admission labs
-leukocytosis with elevated lactate and hypotension concern for sepsis on admission
-severe hypokalemia
-sinus tach with PAC's
-esophagitis with odynophagia
-ETOH abuse with recent binge and concern for withdrawal
-RAMA with some improvement after admission
-increased troponin
-coagulopathy
-elevated triglycerides/cholesterol
Recommendations:
- Continue TFs via DHT, monitor for refeeding syndrome
- Trend daily MELD labs- CMP, CBC and INR. Recent MELD 22 from labs on 10/22
- Recommend Vitamin K challenge given INR if component of malnutrition, ordered IV Vitamin K for 3-days
- Continue IV NAC gtt, will complete last bag as day 03/08
- Steroids contraindicated given ongoing fevers and concern for infection
- Agree with IV Zosyn, monitor blood cultures and ongoing infectious w/u as per primary team
- Needs eventual MRI/MRCP WWO contrast while inpatient once she is no longer in EtOH withdrawal / less agitated given previous c/f double duct sign
- Rest of care as per primary team
GI will continue to follow.
Subjective
Subjective
Date of Service: October 23, 2025
- Febrile overnight with T Max of 102, repeat blood cultures obtained overnight and pending
- Remains on IV Zosyn along with IV NAC gtt (Day 03/08)
- Labs obtained last evening, corresponding to a MELD 22
Somnolent this AM and tube feeds at trickle rate. Remains on phenobarb. Discussed with nursing, concern for suicidal ideation yesterday afternoon and now on suicide watch. Still intermittently febrile this AM.
Objective
Data Reviewed
Laboratory Data:
Laboratory Results
10/22/25 23:34
10/22/25 23:34
Laboratory Results
PT 22.1 Sec (11.4-14.6) H 10/22/25 04:00
INR 1.98 10/22/25 04:00
APTT 35.6 Sec (23.4-35.0) H 10/19/25 03:15
Phosphorus 2.0 mg/dl (2.5-4.5) L 10/22/25 23:34
Magnesium 1.9 mg/dl (1.6-2.3) 10/22/25 23:34
Total Bilirubin 2.2 mg/dl (0.2-1.3) H 10/22/25 23:34
AST 38 U/L (14-36) H 10/22/25 23:34
ALT 30 U/L (0-35) 10/22/25 23:34
Alkaline Phosphatase 99 U/L (38-126) 10/22/25 23:34
Lipase 195 U/L (23-300) 10/17/25 19:52
Vital Signs and I&O:
Vital Signs
Temp Pulse Resp BP Pulse Ox
100.2 F 54 14 92/60 97
10/23/25 04:00 10/23/25 06:00 10/23/25 06:00 10/23/25 06:00 10/23/25 06:00
I&O
10/22/25 10/23/25 10/24/25
06:59 06:59 06:59
Intake Total 3668.6 / 4016.3 4521.80 / 4521.80
Output Total 2925 / 2960 2148 / 2148
Balance 743.6 / 1056.3 2373.80 / 2373.80
Physical Exam
Physical Exam
HEENT: Anicteric and Moist mucous membranes
Cardiology: Other (RR on tele)
Pulmonary: Other (Normal WOB on room air)
GI: Soft, Non Distended and Non Tender
Extremities: No Edema
Neuro: Other (Somnolent, arousable, unable to appreciate for asterixis given mental status)
[2025-10-23] MEDS: DUPHALAC/CHRONULAC 20 GRAMS TUBE ×2 (08:17→15:51)
[2025-10-23] MEDS: VITAMIN B1 100 MG TUBE ×2 (08:17→19:45)
[2025-10-23] MEDS: LUMINAL 32.4 MG TUBE ×3 (08:17→21:50)
[2025-10-23] MEDS: FOLVITE 1 MG TUBE (08:17)
[2025-10-23] MEDS: NSS (PRESERVATIVE FREE) 10 ML IV (08:17)
[2025-10-23] MEDS: PROTONIX IV 40 MG IV (08:18)
[2025-10-23] MEDS: KCL ELIXIR 40 MEQ TUBE ×2 (08:19→17:09)
--- NOTE | 2025-10-23 08:20 | PTCARENOTE ---
KCL 40 meq given via feeding tube
[2025-10-23] MEDS: FLUSH (NSS) 2 FLUSH IV (08:21)
--- NOTE | 2025-10-23 08:50 | W.PN.INTV ---
Today's Communication / Plan
Recommendations
- Increase tube feeding to 20 mL/h
- Give additional potassium replacement, 40 mEq via feeding tube
- Monitor potassium, magnesium, phosphorus closely, evening labs
- Continue phosphate replacement
- Wean Precedex as tolerated
Assessment
-
Patient is a 60-year-old female who presented to the hospital with nausea vomiting and epigastric pain. Patient also reported history of retrosternal burning sensation. Patient has longstanding history of alcohol use with last drink on 10/15. She
typically drinks 750 mL 2 bottles a week of vodka. Patient had not been taking any of her medications either. In the emergency room patient was noted to be quite dehydrated, hypotensive with elevated lactate along with hypokalemia. She also noted
to have acute kidney injury. CT abdomen pelvis was pursued which was suggestive of an obstructive pancreatic head mass with biliary dilation. Patient was started on broad-spectrum antibiotic, IV fluid resuscitation and was admitted to the
hospitalist service. Patient was evaluated by GI service and MRI/MRCP was recommended for further evaluation of suspected pancreatic mass. Overnight 10/18, patient developed increasing agitation related to alcohol withdrawal and was transferred to
ICU. Patient was loaded with phenobarbital and was started on Precedex infusion. Timber Estimator consultation was requested for further input.
#1. Sepsis with concern for cholangitis with suspected pancreatic head mass
- WBC count improving, serial lactate improving
- 10/23, low-grade overnight fever noted. Repeat cultures ordered. Chest x-ray unremarkable. WBC count continues to improve.
- Influenza A, B, COVID-19 screen negative. Blood cultures negative so far
- Continue broad-spectrum antibiotic with IV Zosyn
- GI service on case, pending MRCP/MRI. Will pursue once encephalopathy further improved.
#2. Severe alcohol withdrawal with acute metabolic encephalopathy and hepatic encephalopathy
- Patient exhibiting signs and symptoms of severe alcohol withdrawal. S/p transfer to ICU on 10/19, currently on Precedex infusion along with phenobarbital taper. Off Ativan while on Phenobarb and Precedex.
- Continue thiamine replacement. VBG not suggestive of hypercapnia. No hypoglycemia noted.
- Monitor closely in the ICU
- UTOX positive for tricyclic's, benzodiazepine and marijuana
- 10/20, persistent encephalopathy noted, stat Ammonia checked, elevated. Placed NG tube initiated Lactulose PO. Had 2 small BMs overnight.
- 10/22, responding to lactulose, having bowel movements. Intermittently more alert, makes eye contact, able to say few words. Gradually improving.
- 10/23, gradually improving encephalopathy, still has waxing and waning level of alertness. Continue to wean off Precedex. Continue phenobarbital as ordered. Serial ammonia improving.
#3. Alcohol use disorder with acute alcoholic hepatitis
- Liver function test improving
- Steroids not initiated due to concern for cholangitis/infection
- Continue to monitor LFTs
- D/w GI service 10/19, initiated NAC infusion.
#4. Lactic acidosis on admission
- Gradually improving with IV fluid resuscitation, 3.2 > 1.5
- Sepsis, dehydration and alcohol resume in differential diagnosis
- Beta-hydroxybutyrate minimally elevated at 1.09
- Continue IV fluids and broad-spectrum antibiotics
#5. RAMA on admission
- Resolved with IVF resuscitation, 1.9 > 0.8
#6. Hypokalemia, Hyponatremia and hypomagnesemia/Hypophosphatemia
- Gradually improving with IV fluids and electrolyte replacement
- At risk for refeeding syndrome hence patient has been maintained only on 10 mL/h of tube feeding.
- Continue aggressive replacement of potassium, magnesium and phosphorus.
- 10/23, increase tube feeding to 20 mL/h, continue water flushes
#7. Thrombocytopenia with coagulopathy
- Subcu heparin on hold.
#8. QTc prolongation
- Continue to replace potassium, target more than 4, magnesium more than 2
- QTc improved on f/u EKG on 10/20.
#9. H/o Smoking and COPD
- Not in acute exacerbation
Other medical diagnoses:
- Minimal troponin elevation
- Suspected esophagitis
- Neuropathy, suspect related to alcoholism
- History of depression with CBD use
- Insomnia
Critical Care time 45 min - The patient is admitted for acute critical illness for the treatment of vital organ failure and/or prevention of further life-threatening conditions. Total care includes time spent in review of history, physical exam,
medications, hemodynamic/ventilator parameters, laboratory data, imaging and discussion with house staff, pharmacy, respiratory therapy, healthcare economics manager, and nursing.
Data:
EKG 10/17: QTc 561
CXR 10/2025: No acute change
CT A/P 10/2025: 1. Suspect heterogeneous obstructing pancreatic head mass with associated biliary and pancreatic ductal dilatation. Questionable choledocholithiasis. This can be further evaluated with MRI/MRCP abdomen without and with gadolinium
contrast.
2. Suspect esophagitis.
3. Cholelithiasis.
4. Hepatic cirrhosis.
Subjective Dataa
Subjective Data
Date of Service:
Date of Service: October 23, 2025
Subjective:
Patient comfortably lying in bed in no acute distress.
Review of Systems
Genitourinary: Other (Still sedated hence review of system is limited)
Objective Data
Data Reviewed
Vital Signs / I&O / Oxygen:
Vital Signs
Temp Pulse Resp BP Pulse Ox
100.2 F 54 14 92/60 97
10/23/25 04:00 10/23/25 06:00 10/23/25 06:00 10/23/25 06:00 10/23/25 06:00
Intake and Output
10/22/25 10/23/25 10/24/25
06:59 06:59 06:59
Intake Total 3668.6 / 4016.3 4521.80 / 4521.80
Output Total 2925 / 2960 2148 / 2148
Balance 743.6 / 1056.3 2373.80 / 2373.80
SaO2 97
Nasal Cannula flow liters per 2
minute
Physical Exam
General: Comfortable
HEENT: Normocephalic
Cardiovascular: S1-S2
Respiratory: Clear
GI: Soft and Non Distended
Neurology: Other (Patient gradually with improving alertness)
Skin: Warm
Labs/Micro/Reports
Lab Data
10/22/25 23:34
10/22/25 23:34
Microbiology
10/18/25 11:39 Blood/Venous Blood Culture - Preliminary
No Growth in 4 days- Final report to follow
10/18/25 11:54 Blood/Venous Blood Culture - Preliminary
No Growth in 4 days- Final report to follow
--- NOTE | 2025-10-23 09:00 | PTCARENOTE ---
Rec'd pt at 0700 on One to One observation. Rec'd pt initally sleeping then once stimulated sl drowsy but wakeful and other than time overall oriented. Intermittently gets sl forgetful or makes a confusing comment. Overall however, pt is calm and
conversation is appropriate. Speech is clear. If starts to get drowsy speech will get a little more mumbled but once awake clears back up. Denies headache or dizziness. No tremors noted. NERI. Pt states she chronically has numbness in her legs. Able
to assist somewhat in repositioning. Suicide screen done and today pt states that she is not and has never thought of killing herself. States she said that because ' I was acting crazy and just wanted to get out of here'. States she would never take
her grandchildren away from their grandmother (teresa) Rec'd pt on IV Precedex at 1.3 mcg. Decreased at 0800 to 1.1 mcg as pt is cooperative. RASS is a -1 and MSAS is a 1. Skin is wm - temp currently is 97.4 via thermistor castañeda. Multiple bruises
noted on arms and legs. Arms bilaterally with +2-3 edema very swollen and per pt uncomfortable. Elevated on pillows. Small blister noted on L forearm and L arm tends to weep serous fluid from 2 skin tears. BP cuff changed to R calf. Respirs are
unlabored on RA with sats of 96%. BS are clear. Monitor initally SBrady in the 50's now SR in the 70-80's once awake. VS as documented. Knee high SCD's in place. Abd is round and soft with + BS. Tolerating Jevity 1.5 tube feeds. Rate increased per
Dr. Aponte to 20 ml/hr with 25 ml/hr flush at 0800. 10 ml residual. Tube at the 75 cm aicha R nare. Rectal trumpet in place for loose tannish sl bloody tinged stool. Pt asking for something to drink- Ice chips ok given by Dr. Daniel after pt took 1-2
without couging otherwise NPO for now. Thermistor castañeda in place for yellow urine. IV Acetylcystine infusing via R forearm IV site at 44 ml/hr. Precedex via R hand IV and Na+= phos rider via L Forearm IV site. Sites wnl. Mouth care given. Partial
CHG bath given. Castañeda care completed. Pt turned and repositioned. Rec'd pt with 4 pt soft wrist restraints in place. Restraints removed and will monitor. Plan of care reviewed and call torres in reach.
--- NOTE | 2025-10-23 09:03 | CM ---
Chart reviewed - Care ongoing
TF
CM consult complete for suicide risk
per hospitalist note - One-to-one continued.
Once mentation improves will need Psych consult
CM to continue to follow for discharge panning needs
[2025-10-23] MEDS: TYLENOL ORAL SOLUTION 500 MG TUBE ×2 (10:07→17:33)
--- NOTE | 2025-10-23 10:10 | PTCARENOTE ---
Pt started with chills and temp which had been 97 at 0800 has slowly crept up over the past 2 hrs to 100.3- Drs Rosi and Fay aware and Tylenol 500 mg via tube given. Pt resting otherwise. Precedex weaned to 0.9 mcg as RASS is -1. MSAS is at 4.
No other changes. Na+ Phosphate IV completed.
[2025-10-23] MEDS: MEPHYTON 5 MG PO (10:48)
--- NOTE | 2025-10-23 10:50 | PTCARENOTE ---
Mephyton 5 mg given via tube. Mostly restful. Precedex at 0.9 mcg.
--- NOTE | 2025-10-23 11:50 | W.PN.HOSP.TC ---
Today's Communication/Plan
-
Infectious workup
Finishing NAC protocol
Wean Precedex as possible
Continue with tube feeding
Replete electrolytes aggressively
Assessment / Plan
Assessment / Plan
General: Calm currently, no acute distress
HEENT: NormoCephalic, Anicteric, , No Ptosis and Other (Dry oral mucosa)
Respiratory: Clear; No Wheezes, Rales or Rhonchi
Cardiac: S1/S2 regular rhythm
GI: Soft, Non Distended, Normal Bowel Sounds, DHT noted, fecal management with stool noted
Genito-urinary: Montesinos catheter with yellow color urine noted
Musculoskeletal: No Clubbing, No Cyanosis, No Edema and Other (Missing right great toe status post amputation)
Skin: Warm and Dry;
Neuro: Intermittently opens eyes and becomes agitated
Psych: Calm currently
#Toxic metabolic encephalopathy secondary to delirium tremens and secondary to severe alcohol withdrawal and also concern for possible hepatic encephalopathy
#Alcohol abuse
#Acute on chronic alcoholic liver disease
Drinks 750 mL vodka 2 bottles a week last drink was 10/15/2025
Started on phenobarbital regimen with loading dose
Currently on Precedex infusion
Continue with ICU level of care
Continue with alcohol withdrawal protocol
Lactulose 3 times daily
Remains in restraints
Plan to start trickle TF-Monitor for refeeding syndrome. Electrolytes being repleted aggressively.
Patient may require diuresis as increasing amount of IV fluids.
Diuresis unfortunately unable to be performed due to soft blood pressure at times
#Sepsis with elevated lactate likely secondary to obstructing pancreatic head mass versus secondary to cholangitis with possible CBD stone
# Abdominal pain, nausea and vomiting
#Lactic acidosis
MRCP pending-unstable to undergo further imaging due to mentation
Zosyn renal dose
Cont with IVF.
f/u on blood cultures remains negative
Like fever earlier today and repeat blood cultures were sent. Chest x-ray with decreased lung volumes but no focal airspace disease or pulmonary edema. Remains without leukocytosis.
Lactic acidosis resolved.
GI following
# Acute alcoholic hepatitis
#Hepatic cirrhosis per CT scan
#Coagulopathy
Follow CMP. Elevated MELD score.
hep panel serologies negative
Was started on IV NAC protocol and will be finishing it later today
Elevated INR. T. bili downtrending.
Monitor platelet seems to be downtrending.
Status post vitamin K for coagulopathy
Gastroenterology following
#Thrombocytopenia
-trend platelet for now
#Acute hypokalemia 2/2 vomiting/alcohol use
replete/monitor
#RAMA 2/2 vomiting
Creatinine 1.9/bun 38 prior creatinine 0.6 06/2024
Creatinine continues to downtrend.
Continue IV fluids for now
Creatinine downtrending and improving
# Nonischemic myocardial injury
No active chest pain has esophageal burning only secondary to his esophagitis
Troponin has downtrended
No EKG
#Suicidal ideation unclear based on mentation
Suicide precaution. This morning denies any suicidal ideation.
Once mentation improves will need Psych consult
Pt has made SI in the past per daughter
#Hypophosphatemia
Replete monitor
#Esophagitis per CT
IV Protonix 40 mg now on daily
May require EGD eventually. Will defer to GI
#Chronic neuropathy
Typically takes Cymbalta 90 mg daily, Lyrica 400mg daily has not had in the past 4 days
#COPD�no acute exacerbation
Does not use any inhalers
#Nicotine abuse
Half a pack a day x 30 years
Nicotine patch 14 mg
#CBD medical use for depression
#Insomnia
Patient takes doxepin 10 mg at bedtime
DVT prophylaxis
Subcu heparin
Full code
Updated daughter over the phone in details on daily basis
Anticipated Discharge: > 48 hours
Subjective/Interval History
-
Date of Service: October 23, 2025
More awake and talkative. Remains confused.
Spiked fever earlier today
Remains on tube feeding
Having urinary output and bowel movements
Objective Data
-
Labs:
Laboratory Results
10/22/25 10/23/25
23:34 16:00
WBC 7.1
Hgb 12.6
Hct 35.8 L
Plt Count 81 L D
Sodium 130 L Pending
Potassium 3.8 Pending
Chloride 107 Pending
Carbon Dioxide 20 L Pending
BUN 2 L Pending
Creatinine 0.4 L Pending
Glucose 152 H Pending
Calcium 7.9 L Pending
Total Bilirubin 2.2 H
AST 38 H
ALT 30
Alkaline Phosphatase 99
Vital Signs:
Vital Signs
Temp Pulse Resp BP Pulse Ox
101.5 F H 80 19 107/49 95
10/23/25 10:45 10/23/25 11:00 10/23/25 11:00 10/23/25 11:00 10/23/25 11:00
I&O
10/22/25 10/23/25 10/24/25
06:59 06:59 06:59
Intake Total 3668.6 / 4016.3 4521.80 / 4688.55 884.05 / 884.05
Output Total 2925 / 2960 2148 / 2148 170 / 170
Balance 743.6 / 1056.3 2373.80 / 2540.55 714.05 / 714.05
Data Reviewed
-
Total Time Spent with Patient (in minutes): 55
--- NOTE | 2025-10-23 12:13 | PTCARENOTE ---
Mostly dozing but easily wakeful and cooperative. Says she is just thirsty. Few ice chips given. Temp 102.3 core temp and 101.6 axillary. Weaning IV Precedex as tolerated and per protocol. Currently at 0.7 mcg. No other changes in assessment. One to
One observation continues. Dr. Aponte updated on pts comments about not wanting to hurt herself- per MD wants to wait until fully more awake to address. Safe room maintained.
--- NOTE | 2025-10-23 13:23 | PTCARENOTE ---
Despite Tylenol earlier temp staying at 102.5 Cooling blanket restarted. Difficult to consistently get Bp's due to level of swelling in arms. Tried on calf but readings inconsistent. Taking few ice chips- does ask for food and drink.
--- NOTE | 2025-10-23 13:50 | PTCARENOTE ---
Pt forced out rectal trumpet- stool is tannish/rust colored loose stool. Sheree care given. Will leave out the rectal trumpet for now. Betty Daniel, Fay and Rosi updated. Pt repositioned.
--- NOTE | 2025-10-23 14:22 | PTCARENOTE ---
Acetylcystine infusion completed. Incont of loose simons/rust colored stool + flatus
[2025-10-23 15:56] LABS: Blood Urea Nitrogen 5 mg/dl (7-17); Calcium 8.3 mg/dl (8.4-10.2); Carbon Dioxide 20 mmol/L (22-30); Chloride 107 mmol/L (98-107); Estimated Creatinine Clearance 118 ml/min; Glucose 167 mg/dl (70-99); Magnesium 1.9 mg/dl (1.6-2.3); Potassium 3.7 mmol/L (3.5-5.1); Sodium 132 mmol/L (135-145); eGFR > 60.00
--- NOTE | 2025-10-23 16:25 | PTCARENOTE ---
Labs sent as ordered and resulted to Dr. Aponte. Needed to use foot for lab access. Overall assessment is unchanged. Continuing to wean off Precedex - currently at 0.3 mcg and pt is cooperative. Did have a bout of being tearful when told she most
likely was not going home tomorrow and why. Verbalized she understood but was just sad about it. VS as documented. Temp is 100.9 core- Dingle dc'd mostly because pt constantly wants to lay on her side and barely on the blanket. Will monitor and
place back on if needed. Tolerating tube feeds. Incont of mod amts of loose simons/ronak colored stool- stool looks simons but color on pad is ronak in nature. Urine is yellow/jonatan in color. Repositioned multiple times. One to One observation continues.
Taking a few ice chips with no difficulty noted with swallowing.
--- NOTE | 2025-10-23 17:35 | PTCARENOTE ---
Remedicated with Tylenol 500 mg via tube for temp 100.8 Core. Multiple stools- more tannish in appearance, frequent incontinence. For now will leave rectal trumpet out but if skin starts to get irritated may need to replace the rectal trumpet.
Frequent repositioning.
--- NOTE | 2025-10-23 18:00 | PTCARENOTE ---
Incont of mod amt of stool. Na+ Phosphate rider hung at 1735 via L forearm IV site. Both arms remain very edematous and ecchymotic- elevated as much as possible on pillows. Precedex currently at 0.1 mcg with goal to wean to off at 1999.
[2025-10-23] MEDS: NSS 1000 IV (20:33)
--- NOTE | 2025-10-23 20:35 | PTCARENOTE ---
Received pt from previous RN. Pt is AAOx3, drowsy, anxious, flat. NSR/sinus linden on the monitor, b/l UE edema and weaping. Pt on RA O2 sat 99%, lungs diminished. DHT @ 75 cm in the right nare, Jevity 1.5 @ 20 ml/hr, 25 ml water flush. Montesinos in
place, for critical I&O, temp sensing. Dex gtt weaned off (see worklist). ICU RIDING TEACHER notified, pt urine output 10-15ml, NS ordered at 80 ml/hr. SCDs in place. Mouth care provided. Family at bedside. 1:[address] Call torres in reach. Safe environment
maintained.
--- NOTE | 2025-10-23 22:13 | PTCARENOTE ---
Rectal trumpet placed, pt with multiple liquid stools.
[2025-10-24] VITALS (27 sets, daily range): BP systolic 111–154; BP diastolic 64–98; PULSE 115; O2SAT 96; BMI 25.9
[2025-10-24] MEDS: ZOSYN 50 IV ×4 (04:02→22:45)
--- NOTE | 2025-10-24 04:06 | PTCARENOTE ---
Systems reviewed, no new changes in assessment. AM labs provided. Call torres in reach. 1:[address] Safe environment maintained.
[2025-10-24 04:35] LABS: Blood Urea Nitrogen 7 mg/dl (7-17); Calcium 8.0 mg/dl (8.4-10.2); Carbon Dioxide 19 mmol/L (22-30); Chloride 109 mmol/L (98-107); Estimated Creatinine Clearance 118 ml/min; Glucose 151 mg/dl (70-99); Magnesium 1.8 mg/dl (1.6-2.3); Potassium 3.1 mmol/L (3.5-5.1); Sodium 133 mmol/L (135-145); eGFR > 60.00
[2025-10-24] MEDS: MAGNESIUM SULFATE 102 GRAMS IV (05:20)
[2025-10-24] MEDS: KCL 270 MEQ IV (05:21)
--- NOTE | 2025-10-24 06:59 | W.PN.GI.CBS2 ---
Addendum entered and electronically signed by Wolfgang Daniel, DO 10/25/25 14:25:
Discussed with [facility], Dr. Du, this afternoon on 10/25/25 regarding patient's recent clinical course and acute rise in INR previously 1.98 -> 3s. Agrees with ongoing maximal supportive care and again most consistent with acute on
chronic liver failure. Would complete IV NAC gtt tomorrow and previously agreed with oral vitamin K challenge if component of malnutrition although her INR is likely confounded in the setting of a possible underlying infectious etiology. Would
continue to HOLD steroids given infection and cirrhosis. Would defer transfer as not felt to be an OLT candidate given her suspected infection, alcohol use, and suicidal ideation. Still would benefit from eventual Hepatology evaluation as
outpatient. Currently, her infectious workup is still unrevealing however recent C Diff testing with positive PCR and negative antigen. Could represent colonization however given her recent acute diarrhea along with her elevated leukocytosis and
immunocompromised status (secondary to her cirrhosis), favor empiric treatment with oral vancomycin 125 mg qid for an empiric 10-day course. Rest of ongoing care as well outlined below.
GI will continue to follow. Will discuss with patient, patient's family and primary internal medicine team.
Original Note:
Today's Communication / Plan
-
Rise in MELD score 24 given INR 3.25 (previously 1.98), ordered repeat this AM. Otherwise, mentating appropriately and continue close monitoring of mental status. Favor restarting IV NAC and continue trending MELD labs. Will need eventual MRI/MRCP
while inpatient. Nutrition and SENIOR TELECOMMUNICATIONS CONSULTANT consult along with aggressive electrolyte repletion. Rest of care as below.
Assessment / Plan
-
Summary: 60yo with hx neuropathy, ETOH and tobacco abuse with prior admission for crisis with psych placement, COPD, GERD on chronic PPI, back pain with prior back surgery , anxiety/depression with onset of abdominal pain with nausea and
vomiting. She also admits to odynophagia and recently drinking 2 bottle vodka weekly. On admission labs with noted with WBC 19,600, hbg 16.3, platelets 193, INR 1.6, Na 133, K 2,4, BUN 38, creat 1.9, glucose 145, bili 6,3, AST 172, ALT 50, alk
phos 154, troponin 0.083, albumin 4.6, lipase 195. Ct on admission with concern for obstructing pancreatic head mass with biliary and pancreatic ductal dilatation with possible choledocholithiasis, suspected esophagitis, cholelithiasis and
cirrhosis. In review with patient she admits to recent stress. He spouse has passed and she will have period on increased ETOH use. She has been depression and currently not working. She admits to odynophagia, and mid abdominal pain She takes
Advil 1-2 tabs every several days for headaches. Denies anticoagulation use. She may have had EGD 10 years ago did not recall finding and hx tortuous colonoscopy with follow up barium enema about 10 years ago near [facility] that she
recalls as normal. No hx pancreatic or liver issues in past.
10/17/25 CT AP- Suspect heterogeneous obstructing pancreatic head mass with associated biliary and pancreatic ductal dilatation. Questionable choledocholithiasis. Suspect esophagitis. Cholelithiasis. Hepatic cirrhosis
#Acute on chronic alcoholic liver disease. MELD 29 on admission. NAC started 10/19.
#CT Imaging c/f Cirrhosis
#EtOH withdrawal
#Pancreatic head mass 1.8cm on CT
Other Medical Problems:
-abdominal pain with nausea and vomiting
-abnormal CT without contrast with concern for pancreatic head mass and biliary and pancreatic dilatation with possible choledocholithiasis
-increased LFT's
-cirrhosis per CT with meld 29 based on admission labs
-leukocytosis with elevated lactate and hypotension concern for sepsis on admission
-severe hypokalemia
-sinus tach with PAC's
-esophagitis with odynophagia
-ETOH abuse with recent binge and concern for withdrawal
-RAMA with some improvement after admission
-increased troponin
-coagulopathy
-elevated triglycerides/cholesterol
Recommendations:
- Continue TFs via DHT, continue aggressive repletion of electrolytes as per primary team
- Recommend Nutrition and SENIOR TELECOMMUNICATIONS CONSULTANT consult as well, recommend supplementation with Boosts/Ensures once able to tolerate p.o and evaluated by speech
- Trend daily MELD labs- CMP, CBC and INR. Recent MELD 22 from labs on 10/22
- Rise in MELD 24, now off IV NAC gtt
- Repeat INR this AM given INR 1.98 -> 3.25. Rest of LFTs with T Bili reassuring. Continue oral Vitamin K challenge if component of malnutrition
- Favor restarting IV NAC gtt given rise in MELD for additional 3 days but otherwise mentating appropriately
- Monitor mental status with q 4 hr neuro checks
- Steroids contraindicated given ongoing fevers and concern for infection
- Agree with IV Zosyn, monitor blood cultures and ongoing infectious w/u as per primary team
- Needs eventual MRI/MRCP WWO contrast while inpatient, would defer at this time as would continue DHT as means of nutrition
- Discussed strict EtOH cessation as outpatient and would benefit from EtOH rehab
- Rest of care as per primary team
GI will continue to follow.
Subjective
Subjective
Date of Service: October 24, 2025
- Intermittent febrile last evening with T Max 101.5, repeat blood cultures NGTD
- Completed 5-days on NAC gtt on 10/23, started on oral Vit K challenge 10/23-
- Repeat MELD labs of 24 this AM given INR 3.25
Mentating appropriately this AM, conversant and AAOx3 as compared to prior. No longer on Precedex. Denies any abdominal pain, nausea/vomiting or confusion.
Objective
Data Reviewed
Laboratory Data:
Laboratory Results
10/22/25 23:34
10/24/25 04:01
Laboratory Results
PT 22.1 Sec (11.4-14.6) H 10/22/25 04:00
INR 1.98 10/22/25 04:00
APTT 35.6 Sec (23.4-35.0) H 10/19/25 03:15
Phosphorus 2.1 mg/dl (2.5-4.5) L 10/23/25 15:22
Magnesium 1.8 mg/dl (1.6-2.3) 10/24/25 04:01
Total Bilirubin 2.2 mg/dl (0.2-1.3) H 10/22/25 23:34
AST 38 U/L (14-36) H 10/22/25 23:34
ALT 30 U/L (0-35) 10/22/25 23:34
Alkaline Phosphatase 99 U/L (38-126) 10/22/25 23:34
Lipase 195 U/L (23-300) 10/17/25 19:52
Vital Signs and I&O:
Vital Signs
Temp Pulse Resp BP Pulse Ox
100.1 F 111 11 119/73 99
10/24/25 02:50 10/24/25 06:00 10/24/25 06:00 10/24/25 06:00 10/24/25 06:00
I&O
10/22/25 10/23/25 10/24/25
06:59 06:59 06:59
Intake Total 3668.6 / 4016.3 4521.80 / 4688.55 3573.55 / 3573.55
Output Total 2925 / 2960 2148 / 2148 1355 / 1355
Balance 743.6 / 1056.3 2373.80 / 2540.55 2218.55 / 2218.55
Physical Exam
Physical Exam
HEENT: Anicteric and Moist mucous membranes
Cardiology: Other (RR on tele)
Pulmonary: Other (Normal WOB on room air)
GI: Soft and Non Distended
Extremities: No Edema
Neuro: Non Focal and Other (AAOx3, no asterixis)
[2025-10-24] MEDS: DUPHALAC/CHRONULAC 20 GRAMS TUBE ×2 (08:02→20:07)
[2025-10-24 08:03] LABS: Hematocrit 34.5 % (37.0-47.0); Hemoglobin 11.8 g/dL (12.0-16.0); Mean Corp Hgb Conc. 34.2 g/dL (33.0-37.0); Mean Corpuscular Volume 91.3 fL (81.0-99.0); Platelet Count 115 10^3/uL (130-400); Red Cell Dist. Width 17.3 % (11.5-14.5)
[2025-10-24] MEDS: PROTONIX IV 40 MG IV (08:03)
[2025-10-24] MEDS: KCL ELIXIR 40 MEQ TUBE ×2 (08:03→18:36)
[2025-10-24] MEDS: TYLENOL ORAL SOLUTION 500 MG TUBE (08:03)
[2025-10-24] MEDS: NSS (PRESERVATIVE FREE) 10 ML IV (08:04)
[2025-10-24] MEDS: VITAMIN B1 100 MG TUBE ×2 (08:04→20:07)
[2025-10-24] MEDS: FOLVITE 1 MG TUBE (08:04)
[2025-10-24 08:07] LABS: ALT (SGPT) 28 U/L (0-35); AST (SGOT) 28 U/L (14-36); Albumin 2.5 g/dl (3.5-5.0); Alkaline Phosphatase 119 U/L (38-126); Blood Urea Nitrogen 7 mg/dl (7-17); Calcium 8.1 mg/dl (8.4-10.2); Carbon Dioxide 17 mmol/L (22-30); Chloride 110 mmol/L (98-107); Estimated Creatinine Clearance 118 ml/min; Glucose 147 mg/dl (70-99); Potassium 3.3 mmol/L (3.5-5.1); Sodium 133 mmol/L (135-145); Total Protein 5.2 g/dl (6.3-8.2); eGFR > 60.00
[2025-10-24 08:08] LABS: INR 3.25; PT 33.4 Sec (11.4-14.6)
--- NOTE | 2025-10-24 08:42 | W.PN.HOSP.TC ---
Today's Communication/Plan
-
Psych eval
diuresis
NAC protocol
monitor UOP
Decrease lactulose
vitamin K
Assessment / Plan
Assessment / Plan
General: Calm currently, no acute distress
HEENT: NormoCephalic, Anicteric, , No Ptosis and Other (Dry oral mucosa)
Respiratory: Clear; No Wheezes, Rales or Rhonchi
Cardiac: S1/S2 regular rhythm
GI: Soft, Non Distended, Normal Bowel Sounds, DHT noted, fecal management with stool noted
Genito-urinary: Montesinos catheter with yellow color urine noted
Musculoskeletal: No Clubbing, No Cyanosis, diffuse Edema and Other (Missing right great toe status post amputation)
Skin: Warm and Dry;
Neuro: Intermittently opens eyes and becomes agitated
Psych: Calm currently
#Toxic metabolic encephalopathy secondary to delirium tremens and secondary to severe alcohol withdrawal and also concern for possible hepatic encephalopathy
#Alcohol abuse
#Acute on chronic alcoholic liver disease
Drinks 750 mL vodka 2 bottles a week last drink was 10/15/2025
Started on phenobarbital regimen with loading dose
Currently on Precedex infusion
Continue with ICU level of care
Continue with alcohol withdrawal protocol
Lactulose 3 times daily
Remains in restraints
Plan to start trickle TF-Monitor for refeeding syndrome. Electrolytes being repleted aggressively.
Patient may require diuresis as increasing amount of IV fluids.
Diuresis unfortunately unable to be performed due to soft blood pressure at times
#Sepsis with elevated lactate likely secondary to obstructing pancreatic head mass versus secondary to cholangitis with possible CBD stone
# Abdominal pain, nausea and vomiting
#Lactic acidosis
MRCP pending-unstable to undergo further imaging due to mentation
Zosyn renal dose
Cont with IVF.
f/u on blood cultures remains negative. Ua benign. CXR clear.
Like fever earlier today and repeat blood cultures were sent. Chest x-ray with decreased lung volumes but no focal airspace disease or pulmonary edema. Remains without leukocytosis.
Lactic acidosis resolved.
GI following
# Acute alcoholic hepatitis
#Hepatic cirrhosis per CT scan
#Coagulopathy
Follow CMP. Elevated MELD score.
hep panel serologies negative
Was started on IV NAC protocol and with plan to restart it per GI
Elevated INR. T. bili downtrending.
Monitor platelet seems to be downtrending.
Status post started on vitamin K for coagulopathy
Gastroenterology following
#Iatrogenic fluid overload
-start lasix 20mg IV bid
#Thrombocytopenia
-trend platelet for now. improving.
#Acute hypokalemia 2/2 vomiting/alcohol use
replete/monitor
#RAMA 2/2 vomiting
Creatinine 1.9/bun 38 prior creatinine 0.6 06/2024
Creatinine continues to downtrend.
Continue IV fluids for now
Creatinine downtrending and improving
# Nonischemic myocardial injury
No active chest pain has esophageal burning only secondary to his esophagitis
Troponin has downtrended
No EKG
#Suicidal ideation unclear based on mentation
Suicide precaution. This morning denies any suicidal ideation.
Pt has made SI in the past per daughter
Psych eval
#Hypophosphatemia
Replete monitor
#Esophagitis per CT
IV Protonix 40 mg now on daily
May require EGD eventually. Will defer to GI
#Chronic neuropathy
Typically takes Cymbalta 90 mg daily, Lyrica 400mg daily has not had in the past 4 days
#COPD�no acute exacerbation
Does not use any inhalers
#Nicotine abuse
Half a pack a day x 30 years
Nicotine patch 14 mg
#CBD medical use for depression
#Insomnia
Patient takes doxepin 10 mg at bedtime
DVT prophylaxis-elevated INR. Hep sc held
Full code
Anticipated Discharge: > 48 hours
Subjective/Interval History
-
Date of Service: October 24, 2025
more awake
talking
calm and not agitated
seen by speech earlier
Objective Data
-
Labs:
Laboratory Results
10/24/25 10/24/25
04:01 07:35
WBC 18.6 H
Hgb 11.8 L
Hct 34.5 L
Plt Count 115 L D
PT 33.4 H
INR 3.25
Sodium 133 L 133 L
Potassium 3.1 L 3.3 L
Chloride 109 H 110 H
Carbon Dioxide 19 L 17 L
BUN 7 7
Creatinine 0.5 L 0.5 L
Glucose 151 H 147 H
Calcium 8.0 L 8.1 L
Total Bilirubin 2.1 H
AST 28
ALT 28
Alkaline Phosphatase 119
Vital Signs:
Vital Signs
Temp Pulse Resp BP Pulse Ox
100.1 F 116 18 127/70 99
10/24/25 02:50 10/24/25 07:00 10/24/25 07:00 10/24/25 07:00 10/24/25 06:00
I&O
10/23/25 10/24/25 10/25/25
06:59 06:59 06:59
Intake Total 4521.80 / 4688.55 3573.55 / 3573.55
Output Total 2148 / 2148 1355 / 1355
Balance 2373.80 / 2540.55 2218.55 / 2218.55
Data Reviewed
-
Total Time Spent with Patient (in minutes): 55
[2025-10-24] MEDS: MEPHYTON 5 MG PO (08:49)
--- NOTE | 2025-10-24 09:00 | PTCARENOTE ---
Rec'd pt at 0700 on [facility] observation. Rec'd pt dozing. Easily awakens and is calm. States overall she feels ok- just that she is hungry. Overall is oriented but when she dozes off will start dreaming and make some confusing comments but then
reorients quickly. Denies any hallucinations when awake. Did forget that it was 2024 - thought it was 2025. Admits to arms being sore but tolerable. Speech is clear. Denies dizziness or headache. No tremors noted. NERI- Limited movement of arms/hands
as pt has +3 edema of her arms as well as bruising on her arm and 2 skin tears/open blistered areas on the L arm. Foam dressings placed over. Skin is wm - temp 100.8 core. Tylenol 500 mg given via tube at 0805. Legs and arms as noted with bruising.
Respirs are unlabored on RA with sats of 98%. BS are clear. Monitor ST 108-120 range. VS as documented. Denies chest pain. + pulses. DP pulses are weak to palpation but easily audible with the doppler. Abd is round with hypoactive BS. Taking Ice
chips without diff. Denies any constant nausea but will occasionally ask for a basin 'in case she has to vomit' and currently states she is not nauseated. Tolerating tube feeds Jevity 1.5 via R nare feeding tube. 75 cm aicha. 5 ml residual. Rectal
trumpet in place for tannish stool. Thermistor castañeda in place for dk jonatan almost tea colored urine- 10-15 mls/hr. MD's aware. IV's- KCL rider infusing at 40 ml/hr via R forearm (rate had to be decreased earlier due to pain). NSS infusing via R
hand- currently capped per MD order. Labs sent via R foot as ordered. Unable to get any arm access. KCL 40 meq given per orders via feeding tube at 0805. Partial CHG bath given. Sheree and Castañeda care given. Mouth care given. Turned and repositioned.
Helps a little with turning but difficult arm and hand swelling. Plan of care reviewed with pt. Safe environment maintained.
--- NOTE | 2025-10-24 09:45 | PTCARENOTE ---
Speech therapy in to see pt and cleared pt for regular consistency diet and thin liquids. Taking ice chips- occasionally c/o abd discomfort stating from 'when I was vomiting at home'. Discomfort is not constant but seems to be if a lot is flushed
down her feeding tube. Dr. Aranda in to see pt and updated. KCL rider continues to infuse.
--- NOTE | 2025-10-24 09:48 | W.PN.INTV ---
Today's Communication / Plan
Recommendations
- Monitor off Precedex
- PT/OT
- Speech therapy evaluation, initiate p.o. feeding if able to take p.o.
- Replace potassium both IV and p.o.
- Follow-up labs in evening
- Lower lactulose to twice daily dosing in view of ongoing bowel movements
- Stable for transfer to IMU
- Wash Driller service will sign off, please call as needed
Assessment
-
Patient is a 60-year-old female who presented to the hospital with nausea vomiting and epigastric pain. Patient also reported history of retrosternal burning sensation. Patient has longstanding history of alcohol use with last drink on 10/15. She
typically drinks 750 mL 2 bottles a week of vodka. Patient had not been taking any of her medications either. In the emergency room patient was noted to be quite dehydrated, hypotensive with elevated lactate along with hypokalemia. She also noted
to have acute kidney injury. CT abdomen pelvis was pursued which was suggestive of an obstructive pancreatic head mass with biliary dilation. Patient was started on broad-spectrum antibiotic, IV fluid resuscitation and was admitted to the
hospitalist service. Patient was evaluated by GI service and MRI/MRCP was recommended for further evaluation of suspected pancreatic mass. Overnight 10/18, patient developed increasing agitation related to alcohol withdrawal and was transferred to
ICU. Patient was loaded with phenobarbital and was started on Precedex infusion. Wash Driller consultation was requested for further input.
#1. Sepsis with concern for cholangitis with suspected pancreatic head mass
- WBC count back up again, serial lactate improved
- 10/23, low-grade overnight fever noted. Repeat cultures negative so far. Chest x-ray unremarkabl
- Influenza A, B, COVID-19 screen negative. Blood cultures negative so far
- Continue broad-spectrum antibiotic with IV Zosyn
- GI service on case, pending MRCP/MRI.
#2. Severe alcohol withdrawal with acute metabolic encephalopathy and hepatic encephalopathy
- Patient exhibiting signs and symptoms of severe alcohol withdrawal. S/p transfer to ICU on 10/19, currently on Precedex infusion along with phenobarbital taper. Off Ativan while on Phenobarb and Precedex.
- Continue thiamine replacement. VBG not suggestive of hypercapnia. No hypoglycemia noted.
- Monitor closely in the ICU
- UTOX positive for tricyclic's, benzodiazepine and marijuana
- 10/20, persistent encephalopathy noted, stat Ammonia checked, elevated. Placed NG tube initiated Lactulose PO. Had 2 small BMs overnight.
- 10/22, responding to lactulose, having bowel movements. Intermittently more alert, makes eye contact, able to say few words. Gradually improving.
- 10/23, gradually improving encephalopathy, still has waxing and waning level of alertness. Continue to wean off Precedex. Continue phenobarbital as ordered. Serial ammonia improving.
- 10/24, patient awake, alert, interactive. Answers questions appropriately. Has been off Precedex for close to 12 hours. Significant improvement.
#3. Alcohol use disorder with acute alcoholic hepatitis
- Liver function test improving
- Steroids not initiated due to concern for cholangitis/infection
- Continue to monitor LFTs
- D/w GI service 10/19, initiated NAC infusion.
#4. Lactic acidosis on admission
- Gradually improving with IV fluid resuscitation, 3.2 > 1.5
- Sepsis, dehydration and alcohol resume in differential diagnosis
- Beta-hydroxybutyrate minimally elevated at 1.09
- Broad-spectrum antibiotics
#5. RAMA on admission
- Resolved with IVF resuscitation, 1.9 > 0.8
#6. Hypokalemia, Hyponatremia and hypomagnesemia/Hypophosphatemia
- Gradually improving with IV fluids and electrolyte replacement
- At risk for refeeding syndrome hence patient has been maintained only on 10 mL/h of tube feeding.
- Continue aggressive replacement of potassium, magnesium and phosphorus.
- 10/23, increase tube feeding to 20 mL/h, continue water flushes
- 10/24, give 40 IV KCl in addition to 40 via feeding tube. Continue to monitor
- Get speech therapy evaluation, and start PO diet if able to take.
#7. Thrombocytopenia with coagulopathy
- Subcu heparin on hold
- INR at 3.25 today
#8. QTc prolongation
- Continue to replace potassium, target more than 4, magnesium more than 2
- QTc improved on f/u EKG on 10/20.
#9. H/o Smoking and COPD
- Not in acute exacerbation
Other medical diagnoses:
- Minimal troponin elevation
- Suspected esophagitis
- Neuropathy, suspect related to alcoholism
- History of depression with CBD use
- Insomnia
Critical Care time 48 min - The patient is admitted for acute critical illness for the treatment of vital organ failure and/or prevention of further life-threatening conditions. Total care includes time spent in review of history, physical exam,
medications, hemodynamic/ventilator parameters, laboratory data, imaging and discussion with house staff, pharmacy, respiratory therapy, special assemblies supervisor, and nursing.
Data:
EKG 10/17: QTc 561
CXR 10/2025: No acute change
CT A/P 10/2025: 1. Suspect heterogeneous obstructing pancreatic head mass with associated biliary and pancreatic ductal dilatation. Questionable choledocholithiasis. This can be further evaluated with MRI/MRCP abdomen without and with gadolinium
contrast.
2. Suspect esophagitis.
3. Cholelithiasis.
4. Hepatic cirrhosis.
Subjective Dataa
Subjective Data
Date of Service:
Date of Service: October 24, 2025
Subjective:
Patient more awake, alert, comfortably lying in bed.
Review of Systems
Genitourinary: Other (No new symptoms reported.)
Objective Data
Data Reviewed
Vital Signs / I&O / Oxygen:
Vital Signs
Temp Pulse Resp BP Pulse Ox
100.8 F H 115 19 127/70 98
10/24/25 08:00 10/24/25 08:00 10/24/25 08:00 10/24/25 08:00 10/24/25 08:00
Intake and Output
10/23/25 10/24/25 10/25/25
06:59 06:59 06:59
Intake Total 4521.80 / 4688.55 3573.55 / 3738.55 490 / 490
Output Total 2148 / 2148 1355 / 1365 40 / 40
Balance 2373.80 / 2540.55 2218.55 / 2373.55 450 / 450
SaO2 98
Nasal Cannula flow liters per 2
minute
Physical Exam
General: Comfortable
HEENT: Normocephalic
Cardiovascular: S1-S2 and Peripheral Edema (Bilateral upper extremity edema)
Respiratory: Clear
GI: Soft and Non Distended
Neurology: Awake and Alert
Skin: Warm
Labs/Micro/Reports
Lab Data
10/24/25 07:35
10/24/25 07:35
Laboratory Results
10/24/25 10/24/25
07:35 08:42
PT 33.4 H Cancelled
INR 3.25 Cancelled
Microbiology
10/22/25 23:34 Blood/Venous Blood Culture - Preliminary
No Growth in 24 hours- Final report to follow
10/18/25 11:39 Blood/Venous Blood Culture - Final
No Growth - Final Report
10/18/25 11:54 Blood/Venous Blood Culture - Final
No Growth - Final Report
--- NOTE | 2025-10-24 10:30 | PTCARENOTE ---
PT/OT in to work with pt and assisted pt oob to the recliner chair with assist of 2 and a walker. Gait is weak. Currently oob in the chair. Acetylcystine ordered -will hang once additional access obtained.
--- NOTE | 2025-10-24 10:46 | PTOTSP ---
Speech Language Pathology
Presentation: Patient was oriented and followed comands WNL. Patient denied any communicative deficits.
Swallowing Function: Patient was positioned upright in bed. Patient was presented with ice chips, thin liquids (straw), puree, mechanical soft, and regular consistencies in which patient appeared to tolerate as trials as she did not exhibit any
overt clinical s/sx of aspiration or difficulty with mastication/ manipulation. Patient described uncomfortable sensation in sternum area post-PO trials which may or may not be related to GERD dx and the fact that she has not eaten in ~days. HEAT SEAL OPERATOR
reviewed recommendations of reg/ thin with continued tube feeds to ensure caloric/ nutritional needs are met.
Recommendations:
1) reg/ thin
2) continued tube feeds to ensure caloric and nutritional needs are met
3) supervision with PO to ensure tolerance
4) monitor PO intake
5) consideration of Ensure/ Boost
Plan: HEAT SEAL OPERATOR will continue to follow to ensure tolerance of PO; pending hospitalization. WNL. Patient denied any communicative deficits.
[2025-10-24] MEDS: ACETADOTE 265 MG IV (10:47)
[2025-10-24] MEDS: LASIX 20 MG IV ×2 (10:49→17:34)
--- NOTE | 2025-10-24 10:50 | PTCARENOTE ---
IV team in and new #22 protective inserted via the L foot. Lasix 20 mg IV given per md order then Acetylcystine 13,000 mg IV hung via L foot. Pt remains oob in the chair. Dozing at intervals. States she is just tired.
[2025-10-24] MEDS: ACETADOTE 521.5 MG IV (12:11)
--- NOTE | 2025-10-24 12:21 | PTCARENOTE ---
Assisted back to bed. C/O feeling tired. Rectal trumpet leaked and incont of a large loose watery simons stool. Sheree care given and linens changed. VS as documented. Bag #1 of Acetylcystine completed (13,000 mg dose) and bag #42 hung 4300 mg/500 ml at
130 ml/hr via L foot IV. KCL rider completed. Diurising from Lasix. Tolerating tube feeds along with some applesauce. Repositioned.
--- NOTE | 2025-10-24 12:25 | PTCARENOTE ---
Additional assessment- Rectal trumpet replaced for return of loose simons stool
--- NOTE | 2025-10-24 16:12 | CS.PSYCHR ---
Consult Summary - Psychiatry
-
Patient seen by me on 10/24/2025 from 3:45pm-4:10pm
Psychiatry consult for suicidal ideations. Chart reviewed. 60 yo female with severe alcohol use disorder admitted on 10/17/2025 for nausea/vomiting found to have pancreatic head mass and in alcohol withdrawal. Patient expressed suicidal ideations
today resulting in psych consult. Patient admits to saying she wanted to kill herself in an outburst due to pain, discomfort and fear. She denies feeling suicidal at this time and states she would never kill herself. She shows me pictures of her 2
young grand kids and states she has them to live for. She admits to feeling depressed and to struggling significantly with drinking. her of 30+ years in 2019 and her condition has worsened since then. She admits to drinking 2
bottles of vodka a week. She denies past inpatient rehab treatments but has been medically admitted for withdrawal many times. She states she would like outpatient treatment for her depression when medically stable. We also discussed options for
pursuing sobriety first for her her to consider.
MSE- cooperative. admits to depressed mood. affect congruent. logical and goal directed. denies SI. Denies HI. Denies AVH. Poor I/J.
UDS positive for tricyclics, benzos and marijuana. alcohol level negative
PMH- neuropathy, RLS, GERD, pancreatic head mass, COPD
Social- lives alone. . has 2 adult kids within the area. 2 young grandchildren. on disability
Family history- unspecified addiction
Past psych- no prior suicide attempts; admitted on a 201 once to [facility] for depression in 2023 which she describes as an awful experience during which she signed a 72 hour notice and was discharged. no significant outpatient psychiatric care.
takes cymbalta and lyrica from PCP for neuropathy
A/P- 60 yo female with severe alcohol use disorder and withdrawal as well as unspecified depression. Patient is not actively suicidal. Expression of SI was secondary to pain/discomfort and fear. No need for continuation of 1:1. Most benefit would
come from inpatient D&A treatment to achieve sobriety first but she would have to agree. Would also benefit from outpatient mental health services, particularly if sober.
[2025-10-24] MEDS: ACETADOTE 1060.5 MG IV (16:30)
--- NOTE | 2025-10-24 16:30 | PTCARENOTE ---
Overall assessment is unchanged. Dozing on and off and admits to just feeling tired. Some intermittent throat discomfort depending on position. Sats remain n97% on RA. VS as documented. Tolerating tube feeds and rectal trumpet draining liquid/loose
simons stool. Diuresed somewhat from Lasix- due for second dose shortly. New bag Acetylcystine hung at 1630 12,100 mg dose at 44 ml/hr. Continues to infuse via L foot IV - site wnl. Labs sent as ordered. Psych - Dr. Chan in to see pt and pt ok to
be taken off of 1:1 observation. Turned and repositioned. Sheree care given. Did tolerate sherbert and jello. States she is not really hungry for any other solid food currently. Call torres in reach.
[2025-10-24 17:15] LABS: INR 3.30; PT 33.8 Sec (11.4-14.6)
[2025-10-24 17:22] LABS: Blood Urea Nitrogen 8 mg/dl (7-17); Calcium 8.1 mg/dl (8.4-10.2); Carbon Dioxide 16 mmol/L (22-30); Chloride 108 mmol/L (98-107); Estimated Creatinine Clearance 118 ml/min; Glucose 202 mg/dl (70-99); Magnesium 1.9 mg/dl (1.6-2.3); Potassium 3.5 mmol/L (3.5-5.1); Sodium 134 mmol/L (135-145); eGFR > 60.00
[2025-10-24] MEDS: FLUSH (NSS) 2 FLUSH IV (17:34)
[2025-10-24] MEDS: NEUTRA-PHOS POWDER PACKET 250 MG PO (18:36)
--- NOTE | 2025-10-24 18:40 | PTCARENOTE ---
Remains resting. Fed some luz hands are too swollen to feed herself/fine motor. States it tastes really good but when she swallows her throat really hurts. States it was that way before coming into the hospital . Diurising from Lasix somewhat.
Labs resulted to Dr. Aponte and per orders KCL 40 meq Elixer given via tube and 250 mg Neutraphos orally. No other changes. Call torres in reach.
[2025-10-24] MEDS: TIGAN 200 MG IM (20:15)
--- NOTE | 2025-10-24 22:05 | PTCARENOTE ---
Received pt from previous RN. Pt is AAOx3, forgetful at times. Sinus tach/NSR on the monitor, b/l UE +3 edema, weaping. Pt on RA O2 sat 98%, lungs diminished. Pt with multiple loose/liquid stools, rectal tube replaced for FMS. DHT @ 75 right nare,
Jevity 1.5 at 20 ml/hr, 25 ml water flush. Pt c/o nausea, PRN Tigan given (see MAR). Montesinos in place, hygiene provided. Acetylcysteine infusing at 44 ml/hr. SCDs in place. Mouth care and CHG bath provided. Call torres in reach. Safe environment
maintained.
[2025-10-24] MEDS: TYLENOL 650 MG PO (22:45)
[2025-10-25] VITALS (12 sets, daily range): BP systolic 140–179; BP diastolic 72–103; BMI 26.0
[2025-10-25] MEDS: ZOSYN 50 IV ×4 (04:00→23:30)
[2025-10-25 04:19] LABS: Hematocrit 31.5 % (37.0-47.0); Hemoglobin 11.0 g/dL (12.0-16.0); Mean Corp Hgb Conc. 34.9 g/dL (33.0-37.0); Mean Corpuscular Volume 91.8 fL (81.0-99.0); Platelet Count 106 10^3/uL (130-400); Red Cell Dist. Width 17.1 % (11.5-14.5)
[2025-10-25 04:44] LABS: Blood Urea Nitrogen 7 mg/dl (7-17); Calcium 8.1 mg/dl (8.4-10.2); Carbon Dioxide 19 mmol/L (22-30); Chloride 110 mmol/L (98-107); Estimated Creatinine Clearance 118 ml/min; Glucose 135 mg/dl (70-99); Potassium 3.2 mmol/L (3.5-5.1); Sodium 135 mmol/L (135-145); eGFR > 60.00
[2025-10-25] MEDS: KCL 40 MEQ PO (06:12)
[2025-10-25] MEDS: TYLENOL 650 MG PO ×2 (06:27→15:25)
[2025-10-25] MEDS: LASIX 20 MG IV (09:00)
[2025-10-25] MEDS: DUPHALAC/CHRONULAC 10 GRAMS TUBE ×2 (09:00→20:00)
[2025-10-25] MEDS: MEPHYTON 5 MG PO (09:00)
[2025-10-25] MEDS: DUPHALAC/CHRONULAC TUBE (09:00)
[2025-10-25] MEDS: VITAMIN B1 100 MG TUBE ×2 (09:00→19:59)
[2025-10-25] MEDS: FOLVITE 1 MG TUBE (09:01)
[2025-10-25] MEDS: PROTONIX IV 40 MG IV ×2 (09:01→20:00)
[2025-10-25] MEDS: NSS (PRESERVATIVE FREE) 10 ML IV ×2 (09:01→19:59)
--- NOTE | 2025-10-25 09:01 | W.PN.HOSP.TC ---
Today's Communication/Plan
-
Obtain MRCP
Continue with Zosyn
Increase Protonix to twice a day
Continue with Lasix but decrease to once a day
Decrease lactulose to 10 g twice daily
Transferred to IMU
Continue PT OT
Assessment / Plan
Assessment / Plan
#Toxic metabolic encephalopathy secondary to delirium tremens from severe alcohol withdrawal and also concern for possible hepatic encephalopathy
#Alcohol abuse
Drinks 750 mL vodka 2 bottles a week last drink was 10/15/2025
Off of phenobarbital regimen with loading dose
Off of Precedex infusion
Off of restraint
Psychiatry following
#Sepsis with elevated lactate likely secondary to obstructing pancreatic head mass versus secondary to cholangitis with possible CBD stone
# Abdominal pain, nausea and vomiting
#Lactic acidosis
Resolved fevers
White count remains up. Continue with Zosyn renal dose
Obtain MRCP today she is much better from mentation standpoint.
f/u on blood cultures remains negative. Ua benign. CXR clear.
Lactic acidosis resolved.
# Acute alcoholic hepatitis
#Hepatic cirrhosis
#Coagulopathy
#Acute on chronic alcoholic liver disease
#Hepatic encephalopathy
Elevated MELD score.
hep panel serologies negative
Patient restarted on IV NAC protocol with rising MELD scores
Status post started on vitamin K for coagulopathy
Patient seems to be out of her encephalopathy.
Significant stool output noted. Decrease lactulose to 10 mg twice daily.
#Iatrogenic fluid overload
- Continue the Lasix-changed to once a day
#Thrombocytopenia
-trend platelet for now. improving.
#Acute hypokalemia 2/2 vomiting/alcohol use
replete/monitor
#RAMA 2/2 vomiting
Creatinine 1.9/bun 38 prior creatinine 0.6 06/2024
Creatinine continues to downtrend.
Creatinine downtrending and improving
# Nonischemic myocardial injury
No active chest pain has esophageal burning only secondary to his esophagitis
Troponin has downtrended
No EKG
#Suicidal ideation unclear based on mentation
Suicide precaution. This morning denies any suicidal ideation.
Pt has made SI in the past per daughter
Psych eval
#Hypophosphatemia
Replete monitor
#Esophagitis per CT
IV Protonix 40 mg now on daily-increase to twice a day
May require EGD eventually. Will defer to GI
#Chronic neuropathy
Typically takes Cymbalta 90 mg daily, Lyrica 400mg daily has not had in the past 4 days
#COPD�no acute exacerbation
Does not use any inhalers
#Nicotine abuse
Half a pack a day x 30 years
Nicotine patch 14 mg
#CBD medical use for depression
#Insomnia
Patient takes doxepin 10 mg at bedtime
DVT prophylaxis-elevated INR. Hep sc held
Full code
Discussed with TUFTER OPERATOR
Anticipated Discharge: > 48 hours
Subjective/Interval History
-
Date of Service: October 25, 2025
Patient today alert and oriented. No agitation. She is oriented to place person day and the month of the year.
She says she was never in DTs and this is her first withdrawal syndrome.
Does not feel tremulous.
Off of Precedex. Her complaint is pain when she swallows. She also has upper mid and left upper quadrant pain which she had at home as well. No nausea. She is very thirsty. Not much appetite. She is on tube feeds.
She is now has a fecal management system and she says she is having a lot of liquid stools.
Denies any trouble with the breathing, chest pain.
No fever or chills.
Objective Data
-
Labs:
Laboratory Results
10/25/25
03:58
WBC 18.1 H
Hgb 11.0 L
Hct 31.5 L
Plt Count 106 L
Sodium 135
Potassium 3.2 L
Chloride 110 H
Carbon Dioxide 19 L
BUN 7
Creatinine 0.4 L
Glucose 135 H
Calcium 8.1 L
Vital Signs:
Vital Signs
Temp Pulse Resp BP Pulse Ox
99.6 F 94 22 147/89 98
10/25/25 07:29 10/25/25 06:00 10/25/25 06:00 10/25/25 06:00 10/25/25 06:00
I&O
10/24/25 10/25/25 10/26/25
06:59 06:59 06:59
Intake Total 3573.55 / 3738.55 3980 / 3980
Output Total 1355 / 1365 1979
Balance 2218.55 / 2373.55 1999
Physical Exam
-
General: No Apparent Distress and Comfortable
Respiratory: Clear to Auscultation and Non Labored Respirations; Negative Accessory Resp Muscle Use
Cardiac: Regular Rhythm, S1/S2 and Tachycardic
GI: Soft, Nondistended, Normal Bowel Sounds and Tender (Epigastric and left upper and lower quadrant)
Musculoskeletal: No Edema (No edema feet; there is some swelling in the right upper arm where she had an IV line and also in the left arm where she had IV lines. She has poor IV access and now has an IV in the foot)
Neuro: AO x 3; Negative Tremors
Psych: Calm; Negative Confused or Agitated
Data Reviewed
-
Labs: Labs Reviewed by me
[2025-10-25] MEDS: FLUSH (NSS) 1 FLUSH IV (09:05)
--- NOTE | 2025-10-25 09:15 | PTCARENOTE ---
Rec'd pt at 0800 resting in bed. Intially awake but sl drowsy. When awake is alert and oriented but will doze off and make random comments. C/O a 7/10 headache this am- states earlier Tylenol hasn't really helped. Speech is clear. NERI. Pt has
chronic numbness in her feet. Skin is wm. L arm edema is improved today +1 edema. R arm with + 3 edema. R upper arm weeping serous fluid. Arms and legs are ecchymotic- mostly arms. Respirs are sl shallow but non-labored on RA with sats of 98%. BS
are clear although pt admits to feeling short of breath just with turning. Monitor SR. VS as documented. + pulses. Abd is round + BS. Continues to tolerate Jevity 1.5 tube feeds at 20 ml/hr with 25 ml/hr flush via R nare feeding tube at the 75 cm
aicha. FMS in place for loose simons stool. Does admit to abd tenderness. Lactulose 10 mg given via tube. Pt taking in some po fluids/sherbert and few bites of pancake but tolerates very little before she says it hurts her throat or c/o nausea.
Thermistor castañeda intact for yellow urine. Lasix given as ordered. IV Acetylcystine infusing via L foot IV site at 44 ml/hr. Capped ints intact R hand and R forearm. Turned and repostioned. SKin and dave care given. Arms elevated. Plan of care
reviewed and call torres in reach. Dr. Escobedo in to see pt and updated.
--- NOTE | 2025-10-25 10:28 | W.PN.GI.CBS2 ---
Addendum entered and electronically signed by KINSEY Canchola 10/25/25 14:57:
daughter updated at length on concern for worsening liver dsyfunction, infection, [facility] review etc. All questions answered.
Addendum entered and electronically signed by KINSEY Canchola 10/25/25 14:39:
I left message for daughter Catalina to review for medical update. I also updated patient nurse Gabi and MRI result, plan, and review with [facility].
Addendum entered and electronically signed by Wolfgang Daniel DO 10/25/25 13:57:
I saw and examined the patient.
The FINANCE INTERN's note was reviewed and I agree with the note.
Comment: Currently, suspect her underlying infection is driving her coagulopathy given her profoundly elevated INR. She continues to mentate appropriately although she is currently be treating with lactulose given the previous concern for HE is
setting of her cirrhosis. Otherwise, the rest of her LFTs are slowly improving and down-trending T Bili. Still suspect she may have had transient biliary sepsis as previously had biliary dilatation on prior CT imaging on 10/17/25. Recent MRI/MRCP
10/25/25 demonstrating severe hepatic cirrhosis without any biliary ductal dilatation along with findings consistent with portal hypertension with splenomegaly and mild to moderate ascites. There was no evidence of any pancreatic neoplasm however
this did demonstrate dilatation of the main duct and 2 small cystic foci within the pancreatic head suspicious for small pseudocysts or IPMN's. She may benefit from an eventual EUS as outpatient pending her clinical course.
Regardless, her MELD continues to improve (initial MELD 3.0 score of 29 and now 24 on 10/25/25). However, given her rise in her INR will discuss with hepatology with [facility] as she previously was not a candidate for steroids given her ongoing
infection/fevers and her current discriminant function is 97 consistent with poor prognosis. However, this is again confounded as she does have underlying cirrhosis and again suspect this is largely being driven from her previous infection. Would
continue last day of IV NAC gtt and recently completed oral vitamin K challenge if there was a component of malnutrition. Ultimately, she needs strict alcohol cessation and would benefit from inpatient alcohol rehab. Would continue ongoing tube
feeds and Nutrition consult. In the meantime, recommend ongoing infectious workup and agree with empiric IV Zosyn however if ongoing persistent fevers would recommend consideration of infectious disease consultation. Additionally, given her mild
to moderate ascites will reach out to IR as well to sample peritoneal fluid to rule out SBP (although has been on IV antibiotics for several days) along with checking studies to send for SAAG along with cytology. Check stool studies as well given
her intermittent diarrhea and leukocytosis although likely in the setting of her tube feeds and lactulose. Rest of ongoing supportive care as below.
GI will continue to follow. Will reach out to Hepatology at [facility] later this afternoon.
Original Note:
Today's Communication / Plan
-
- Continue TFs via DHT, continue aggressive repletion of electrolytes as per primary team
- Recommend Nutrition and HORTICULTURE TEACHER consult as well, recommend supplementation with Boosts/Ensures once able to tolerate p.o and evaluated by speech
- Trend daily MELD labs
-pt was in NAC then restarted 10/24 will continued bag # 3 after current bag done
-continue vitamin K day # 3
-agree with MRI -- reviewed with nursing trying to do today
- Monitor mental status with q 4 hr neuro checks
- Steroids contraindicated given ongoing fevers and concern for infection
- Agree with IV Zosyn, monitor blood cultures and ongoing infectious w/u as per primary team
- reinforced strict EtOH cessation as outpatient and would benefit from EtOH rehab
-cont to correct electrolytes
-with ongoing diarrhea add stool studies may also be related to antibiotic use
- Rest of care as per primary team
Assessment / Plan
-
Summary: Pt is a 60yo with hx neuropathy, ETOH and tobacco abuse with prior admission for crisis with psych placement, COPD, GERD on chronic PPI, back pain with prior back surgery , anxiety/depression with onset of abdominal pain with nausea
and vomiting. She also admits to odynophagia and recently drinking 2 bottle vodka weekly. On admission labs with noted with WBC 19,600, hbg 16.3, platelets 193, INR 1.6, Na 133, K 2,4, BUN 38, creat 1.9, glucose 145, bili 6,3, AST 172, ALT 50,
alk phos 154, troponin 0.083, albumin 4.6, lipase 195. Ct on admission with concern for obstructing pancreatic head mass with biliary and pancreatic ductal dilatation with possible choledocholithiasis, suspected esophagitis, cholelithiasis and
cirrhosis. In review with patient she admits to recent stress. He spouse has passed and she will have period on increased ETOH use. She has been depression and currently not working. She admits to odynophagia, and mid abdominal pain She takes
Advil 1-2 tabs every several days for headaches. Denies anticoagulation use. She may have had EGD 10 years ago did not recall finding and hx tortuous colonoscopy with follow up barium enema about 10 years ago near [facility] that she
recalls as normal. No hx pancreatic or liver issues in past.
10/17/25 CT [facility]- Suspect heterogeneous obstructing pancreatic head mass with associated biliary and pancreatic ductal dilatation. Questionable choledocholithiasis. Suspect esophagitis. Cholelithiasis. Hepatic cirrhosis
#Acute on chronic alcoholic liver disease. NAC started 10/19--- DF 34.8 on admission, 95.9 on repeat 10/24
#CT Imaging c/f Cirrhosis with elevated LFT's MELD 29 on admission. repeat 10/24 26
#EtOH abuse with withdrawal and TME
#Pancreatic head mass 1.8cm on CT
# coagulopathy
# abdominal pain
# suicidal ideations
# odynophagia with esophagitis on imaging
# leukocytosis
# diarrhea
# thrombocytopenia
#persistent hypokalemia
# RAMA on admission
other med problems:
- neuropathy, ETOH and tobacco abuse with prior admission for crisis with psych placement, tobacco abuse, COPD, GERD on chronic PPI, back pain with prior back surgery , anxiety/depression
Recommendations:
- Continue TFs via DHT, continue aggressive repletion of electrolytes as per primary team
- Recommend Nutrition and HORTICULTURE TEACHER consult as well, recommend supplementation with Boosts/Ensures once able to tolerate p.o and evaluated by speech
- Trend daily MELD labs
-pt was in NAC then restarted 10/24 will continued bag # 3 after current bag done
-continue vitamin K day # 3
-agree with MRI -- reviewed with nursing trying to do today
- Monitor mental status with q 4 hr neuro checks
- Steroids contraindicated given ongoing fevers and concern for infection
- Agree with IV Zosyn, monitor blood cultures and ongoing infectious w/u as per primary team
- reinforced strict EtOH cessation as outpatient and would benefit from EtOH rehab
-cont to correct electrolytes
-with ongoing diarrhea add stool studies may also be related to antibiotic use
- Rest of care as per primary team
Subjective
Subjective
Date of Service: October 25, 2025
+ loose stool in rectal bag, still with some upper abdominal pain and taking some tube feeds and oral diet
Objective
Data Reviewed
Laboratory Data:
Laboratory Results
10/25/25 03:58
10/25/25 03:58
Laboratory Results
PT 33.8 Sec (11.4-14.6) H 10/24/25 16:43
INR 3.30 10/24/25 16:43
APTT 35.6 Sec (23.4-35.0) H 10/19/25 03:15
Phosphorus 1.8 mg/dl (2.5-4.5) L 10/24/25 16:43
Magnesium 1.9 mg/dl (1.6-2.3) 10/24/25 16:43
Total Bilirubin 2.1 mg/dl (0.2-1.3) H 10/24/25 07:35
AST 28 U/L (14-36) 10/24/25 07:35
ALT 28 U/L (0-35) 10/24/25 07:35
Alkaline Phosphatase 119 U/L (38-126) 10/24/25 07:35
Lipase 195 U/L (23-300) 10/17/25 19:52
Vital Signs and I&O:
Vital Signs
Temp Pulse Resp BP Pulse Ox
99.6 F 93 22 151/86 98
10/25/25 07:29 10/25/25 09:00 10/25/25 06:00 10/25/25 09:00 10/25/25 06:00
I&O
10/24/25 10/25/25 10/26/25
06:59 06:59 06:59
Intake Total 3573.55 / 3738.55 3980 / 3980
Output Total 1355 / 1365 1979 / 1979
Balance 2218.55 / 2373.55 1999
Physical Exam
Physical Exam
HEENT: Moist mucous membranes and Other (jaundice)
Cardiology: Normal Sinus Rhythm
Pulmonary: Clear
GI: Soft, Non Distended and Tender (upper abdomen )
Neuro: Non Focal
[2025-10-25 11:20] LABS: ALT (SGPT) 25 U/L (0-35); AST (SGOT) 26 U/L (14-36); Albumin 2.3 g/dl (3.5-5.0); Alkaline Phosphatase 111 U/L (38-126); Total Protein 4.9 g/dl (6.3-8.2)
[2025-10-25] MEDS: IMITREX 6 MG SC ×2 (11:26→21:43)
--- NOTE | 2025-10-25 11:30 | PTCARENOTE ---
Pt has been c/o of a headache- states it feels like her migraines and that she has light sensitivity- wearing her sunglasses. Dr. Escobedo updated and Imitrex 6mg sq given. Pt did diurese from [facility]-. Jaguar hall'porsha after discussion with . Pt c/o
intermittent abd discomfort. Spoke with MRI-ok to keep Feeding tube in for MRI. Acetylcystine placed on hold for MRI. Pt currently taken via bed to MRI.
--- NOTE | 2025-10-25 12:45 | PTCARENOTE ---
Tolerated MRI and is currently back in her room Aceytelcystine restarted. Stool studies sent. Turned and repositioned- does c/o of pain in her abd with turning and just being uncomfortable intermittently in general. Denies distinct nausea but will
ask for a basin 'just in case'. Tube feeds restarted Jevity 1.5 20 ml/hr with 25 ml/hr flush. Call torres in reach. Plan is for oob this afternoon.
[2025-10-25] MEDS: NEUTRA-PHOS POWDER PACKET 250 MG PO ×3 (15:23→21:43)
--- NOTE | 2025-10-25 15:30 | PTCARENOTE ---
Gi- Ingris Adams in - C Diff antigent +, toxin (-) but is going to be treated with Vanco. Pt with stool . Pt placed on Enhanced precautions. Incont around FMS of a large amt of thicker stool Balloon intact and sufficiently inflated. FMS left in
because pt also with watery loose stool. Sheree care given. Pt c/o increased abd pain when lying on her side. Pt frequently with intermittent moaning/grunting then will briefly doze. Admits headache is better. Denies distinct nausea but with taking a
few sips of liquids or flushing tube with additional liquid tends to want to have a basin ready ' Just in case'. Support and many explanations given. Pt assisted with assist of 2 oob to the chair. Gait is weak but is able to bear wt- just needs
instruction. Once in the chair taking few spoonfuls of sherbert or ice chips. Call torres in reach.
--- NOTE | 2025-10-25 15:30 | PTCARENOTE ---
Additional assessment. Pt has not voided since castañeda removeal. Bladder scanned for 201 mls
--- NOTE | 2025-10-25 15:30 | PTCARENOTE ---
Additional assessment. Pt has not voided since castañeda removeal. Bladder scanned for 201 mls.Pt c/o abd pain anywhere from at 3 to a 6 depending on position at times -especially on her side but sometimes when she is just on her back. Currently in the
chair. Medicated with Tylenol 650 mg.
--- NOTE | 2025-10-25 15:50 | PTCARENOTE ---
Tube feeds increased to 30 ml/hr per dietary recommendation.
--- NOTE | 2025-10-25 17:00 | PTCARENOTE ---
Assisted back to bed. Started to feel tired. Gait is weak but able to bear wt. Repositioned. Skin care given.
[2025-10-25] MEDS: ACETADOTE 1060.5 MG IV (17:11)
[2025-10-25] MEDS: ULTRAM 50 MG TUBE (17:54)
[2025-10-25] MEDS: FIRVANQ 125 MG TUBE ×2 (17:54→23:30)
--- NOTE | 2025-10-25 18:00 | PTCARENOTE ---
Pt lying in bed but frequently wimpering/moaning or mumbling to herself. Tearful When asked if she had abd pain and she said yes that is part of it but that she was also sad and tearful that she couldn't go home. Support given. Describes abd pain
as 7/10 at times sharp pain. Medicated with ULtram 50 mg po. Given via tube as pt did not want to take it orally. Denies need to void. Rebladder scanned for 335 mls. Currently on her R side. Call torres in reach.
--- NOTE | 2025-10-25 18:40 | PTCARENOTE ---
Dozing a little after Ultram.
[2025-10-26] VITALS (13 sets, daily range): BP systolic 124–168; BP diastolic 70–94; BMI 25.5
--- NOTE | 2025-10-26 00:18 | PTCARENOTE ---
Pt received start of shift, HR SR/ST on telemetry. Pt AAOX3. Drowsy, awakens to verbal. Acetadote infusing as ordered. Pt incontinent large amount of urine - PVR 91mL. Pt with extremely large liquid BM not caught in FMS - deflated cuff,
repositioned, and reinflated. Flushing fine. Pt cleaned with CHG. TF as ordered.
Pt c/o 'migraine headache' same as earlier in shift and requesting SC imitrex again - TT LYN Casey, 1 time dose administered as ordered (see MAR).
[2025-10-26] MEDS: ULTRAM 50 MG TUBE (03:26)
[2025-10-26 04:02] LABS: Hematocrit 34.5 % (37.0-47.0); Hemoglobin 11.9 g/dL (12.0-16.0); Mean Corp Hgb Conc. 34.5 g/dL (33.0-37.0); Mean Corpuscular Volume 93.2 fL (81.0-99.0); Platelet Count 118 10^3/uL (130-400); Red Cell Dist. Width 16.9 % (11.5-14.5)
[2025-10-26 04:13] LABS: INR 2.50; PT 27.2 Sec (11.4-14.6)
[2025-10-26 04:26] LABS: ALT (SGPT) 28 U/L (0-35); AST (SGOT) 37 U/L (14-36); Albumin 2.6 g/dl (3.5-5.0); Alkaline Phosphatase 128 U/L (38-126); Blood Urea Nitrogen 6 mg/dl (7-17); Calcium 8.2 mg/dl (8.4-10.2); Carbon Dioxide 23 mmol/L (22-30); Chloride 106 mmol/L (98-107); Estimated Creatinine Clearance 118 ml/min; Glucose 131 mg/dl (70-99); Potassium 3.6 mmol/L (3.5-5.1); Sodium 136 mmol/L (135-145); Total Protein 5.4 g/dl (6.3-8.2); eGFR > 60.00
[2025-10-26] MEDS: ZOSYN 50 IV ×4 (04:29→23:10)
[2025-10-26] MEDS: FIRVANQ 125 MG TUBE ×3 (05:10→17:43)
[2025-10-26] MEDS: TYLENOL ORAL SOLUTION 650 MG TUBE ×2 (05:32→12:58)
--- NOTE | 2025-10-26 08:48 | W.PN.HOSP.TC ---
Today's Communication/Plan
-
Continue with Zosyn
Will obtain a diagnostic paracentesis when INR permits
Continue with empirical vancomycin and follow stool output.
Continue with IV NAC follow INR and bilirubin.
Continue with PT OT.
Assessment / Plan
Assessment / Plan
#Toxic metabolic encephalopathy secondary to delirium tremens from severe alcohol withdrawal and also concern for possible hepatic encephalopathy
#Alcohol abuse
Drinks 750 mL vodka 2 bottles a week last drink was 10/15/2025
Off of phenobarbital regimen with loading dose
Off of Precedex infusion
Off of restraint
Resolved encephalopathy
Psychiatry following
#Sepsis with elevated lactate likely secondary to obstructing pancreatic head mass versus secondary to cholangitis with possible CBD stone
# Abdominal pain, nausea and vomiting
#Lactic acidosis
# Diarrhea with C. difficile antigen positive and toxin negative
Resolved fevers
White count improving. Continue with Zosyn renal dose
f/u on blood cultures remains negative. Ua benign. CXR clear.
Lactic acidosis resolved.
With no biliary obstructing stone or biliary dilatation or cholecystitis on MRCP consider acetic fluid tap and if negative consider discontinuing Zosyn.
Agree with empirical vancomycin.
# Acute alcoholic hepatitis
#Hepatic cirrhosis
#Coagulopathy
#Acute on chronic alcoholic liver disease
#Hepatic encephalopathy
#Ascites
Elevated MELD score.
hep panel serologies negative
Patient restarted on IV NAC protocol with rising MELD scores
Status post started on vitamin K for coagulopathy
Patient seems to be out of her encephalopathy.
Continue with lactulose to 10 mg twice daily.
INR improved
#Iatrogenic fluid overload
- Continue the Lasix
-Follow weights
#Thrombocytopenia
-trend platelet for now. improving.
#Acute hypokalemia 2/2 vomiting/alcohol use
repletee/monitor
#RAMA 2/2 vomiting
Creatinine 1.9/bun 38 prior creatinine 0.6 06/2024
Creatinine continues to downtrend.
Creatinine downtrending and improving
# Nonischemic myocardial injury
No active chest pain has esophageal burning only secondary to his esophagitis
Troponin has downtrended
No EKG
#Suicidal ideation unclear based on mentation
Suicide precaution. This morning denies any suicidal ideation.
Pt has made SI in the past per daughter
Psych eval
#Hypophosphatemia
Replete monitor
#Esophagitis per CT
IV Protonix 40 mg now on daily-increase to twice a day
May require EGD eventually. Will defer to GI
#Chronic neuropathy
Typically takes Cymbalta 90 mg daily, Lyrica 400mg daily has not had in the past 4 days
#COPD�no acute exacerbation
Does not use any inhalers
#Nicotine abuse
Half a pack a day x 30 years
Nicotine patch 14 mg
#CBD medical use for depression
#Insomnia
Patient takes doxepin 10 mg at bedtime
DVT prophylaxis-elevated INR. Hep sc held
Full code
Total time spent on today's encounter was 52 minutes which included time spent in counseling the patient/family regarding diagnosis and treatment plan as listed above, goals of care, and symptom management. Case was discussed with nursing staff,
specialists, and care coordinators/case management. All labs and imaging personally reviewed by me. Remainder the time spent in detailed review of previous records, lab data, imaging, and other medical provider documentation.
Portions of this chart may have been created with voice recognition software. Occasional wrong word or 'sound alike' substitutions may have occurred due to the inherent limitations of voice recognition software.
Anticipated Discharge: > 48 hours
Subjective/Interval History
-
Date of Service: October 26, 2025
'I am feeling great today'
Slept 6hours at least.
She still feels some discomfort on swallowing and points to her lower esophagus area. Her abdominal pain she was complaining before is slightly better. No nausea vomiting.
No fever or chills. Denies shortness of breath.
Objective Data
-
Labs:
Laboratory Results
10/26/25
03:49
WBC 17.1 H
Hgb 11.9 L
Hct 34.5 L
Plt Count 118 L
PT 27.2 H
INR 2.50
Sodium 136
Potassium 3.6
Chloride 106
Carbon Dioxide 23
BUN 6 L
Creatinine 0.4 L
Glucose 131 H
Calcium 8.2 L
Total Bilirubin 1.7 H
AST 37 H
ALT 28
Alkaline Phosphatase 128 H
Vital Signs:
Vital Signs
Temp Pulse Resp BP Pulse Ox
98.9 F 94 27 156/90 100
10/26/25 08:00 10/26/25 06:00 10/26/25 06:00 10/26/25 06:00 10/26/25 06:00
I&O
10/25/25 10/26/25 10/27/25
06:59 06:59 06:59
Intake Total 3980 / 4069 2836 / 2836
Output Total 1979 / 1979 750 / 750
Balance 1999
Physical Exam
-
General: No Apparent Distress
HEENT: Moist Mucous Membranes
Respiratory: Clear to Auscultation
Cardiac: Regular Rhythm, S1/S2 and Tachycardic
GI: Soft, Nondistended, Normal Bowel Sounds and Tender (Mild discomfort in epigastric area today. No rebound guarding rigidity.)
Musculoskeletal: No Edema
Neuro: AO x 3; Negative Tremors
Psych: Calm; Negative Confused or Agitated
Data Reviewed
-
Labs: Labs Reviewed by me
[2025-10-26] MEDS: DUPHALAC/CHRONULAC 10 GRAMS TUBE (09:46)
[2025-10-26] MEDS: FOLVITE 1 MG TUBE (09:46)
[2025-10-26] MEDS: VITAMIN B1 100 MG TUBE (09:47)
[2025-10-26] MEDS: NEUTRA-PHOS POWDER PACKET 250 MG PO ×4 (09:47→23:10)
[2025-10-26] MEDS: NSS (PRESERVATIVE FREE) 10 ML IV (09:47)
[2025-10-26] MEDS: PROTONIX IV 40 MG IV (09:47)
[2025-10-26] MEDS: LASIX 20 MG IV (09:48)
--- NOTE | 2025-10-26 10:58 | W.PN.GI.CBS2 ---
Addendum entered and electronically signed by KINSEY Canchola 10/26/25 16:03:
reviewed with Dr. Escobedo for continued antibiotics. Reviewed again with IR for diagnostic para as INR now 2.5 - will proceed with small volume tap to rule out SBP prior to stopping antibiotics.
Addendum entered and electronically signed by Magdalena Pederson MD 10/26/25 15:41:
I saw and examined the patient.
The TURBO GENERATOR OILER's note was reviewed and I agree with the note.
Comment: Mentation is markedly improved and she is awake and tolerating diet will discontinue the Dobbhoff tube feeds. WBC count is improving and MRI with no evidence of choledocholithiasis shows gallstones. Also shows cirrhosis and no pancreatic
mass noted there is evidence of possible pancreatic cystic lesion pseudocyst versus IPMN. INR is also improving. NAC to be completed today. Continue lactulose. She also received vitamin K. She is currently on Zosyn which we can most likely
discontinue if the ascites is negative for SBP. Currently on vancomycin although she is toxin negative. May need to discontinue lactulose if diarrhea worsens. Continue thiamine and folic acid and PPI. Will need to repeat MRI with MRCP in 1 year
to follow-up on the pancreatic cystic lesion and also for HCC surveillance. Will need hepatology follow-up after DC. Will need to strictly abstain from alcohol and may benefit from rehab and AA meetings after DC
Original Note:
Today's Communication / Plan
-
pt with slow improvement today with improved mental status, less diarrhea with rectal tube now out, improving abdominal pain, improved oral intakes, slight improved INR down to 2.5
Nac protocol completing today , s/p 3 days vitamin K given
s/p MRI as noted
fever improving
remain on IV Zosyn cont course per hospitalist team
c-diff ag + tox neg -- started with vanco with improved diarrhea (lactulose also taper dose)
with high INR paracentesis held - can consider tap with worsening fluid if INR coming down
cont to trend labs
continued with tube feed for 1 more day -- if oral intakes good d/c DHT and continue oral diet
Steroids contraindicated with fever concern for infection
strict EtOH cessation as outpatient and would benefit from EtOH rehab
updated nursing staff
Dr. Daniel reviewed case with [facility] 10/24 no new recommendation added continued treatment of infectious process, I updated daughter 10/24 all questions answered
Assessment / Plan
-
Summary: Pt is a 60yo with hx neuropathy, ETOH and tobacco abuse with prior admission for crisis with psych placement, COPD, GERD on chronic PPI, back pain with prior back surgery , anxiety/depression with onset of abdominal pain with nausea
and vomiting. She also admits to odynophagia and recently drinking 2 bottle vodka weekly. On admission concern for ETOH hepatitis +/- cirrhosis. Ct on admission with concern for obstructing pancreatic head mass with biliary and pancreatic
ductal dilatation with possible choledocholithiasis, suspected esophagitis, cholelithiasis and cirrhosis. Follow up MRI without pancreatic mass or stone. She may have had EGD 10 years ago did not recall finding and hx tortuous colonoscopy with
follow up barium enema about 10 years ago near [facility] that she recalls as normal. No hx pancreatic or liver issues in past.
10/17/25 CT [facility]- Suspect heterogeneous obstructing pancreatic head mass with associated biliary and pancreatic ductal dilatation. Questionable choledocholithiasis. Suspect esophagitis. Cholelithiasis. Hepatic cirrhosis
MR Abdomen W/o & W Contrast
Severe hepatic cirrhosis.
Secondary findings of portal hypertension including splenomegaly and mild to moderate abdominal ascites.
Cholelithiasis.
Pancreatic atrophy and dilatation of the main pancreatic duct.
Two small cystic foci in the posterior head of the pancreas suggesting small pseudocysts or side branch intraductal papillary mucinous neoplasms. No clear MRI evidence for a suspicious pancreatic mass within the limitations of motion artifact.
Correlate with laboratory values and endoscopic ultrasound as clinically indicated.
#Acute on chronic alcoholic liver disease. NAC started 10/19--- DF 34.8 on admission, 95.9 on repeat 10/24
#CT Imaging c/f Cirrhosis with elevated LFT's MELD 29 on admission. repeat 10/24 26
#EtOH abuse with withdrawal and TME
# diarrhea with c-diff ag + tox neg
#Pancreatic head mass 1.8cm on CT noted with panc cyst on follow up MRI
# coagulopathy
# abdominal pain - improving
# suicidal ideations
# odynophagia with esophagitis on imaging -- improving
# leukocytosis
# thrombocytopenia
#persistent hypokalemia
# RAMA on admission
other med problems:
- neuropathy, ETOH and tobacco abuse with prior admission for crisis with psych placement, tobacco abuse, COPD, GERD on chronic PPI, back pain with prior back surgery , anxiety/depression
Recommendations:
pt with slow improvement today with improved mental status, less diarrhea with rectal tube now out, improving abdominal pain, increased oral intakes, slight improved INR down to 2.5
Nac protocol completing today , s/p 3 days vitamin K given
s/p MRI as noted
fever improving
remain on IV Zosyn cont course per hospitalist team
c-diff ag + tox neg -- started with vanco with improved diarrhea (lactulose also taper dose)
with high INR paracentesis held - can consider tap with worsening fluid if INR coming down
cont to trend labs
continued with tube feed for 1 more day -- if oral intakes good d/c DHT and continue oral diet
Steroids contraindicated with fever concern for infection
strict EtOH cessation as outpatient and would benefit from EtOH rehab
Dr. Daniel reviewed case with [facility] 10/24 no new recommendation added continued treatment of infectious process, I updated daughter 10/24 all questions answered
Subjective
Subjective
Date of Service: October 26, 2025
10/25 brown stool, 2 gram
Objective
Data Reviewed
Laboratory Data:
Laboratory Results
10/26/25 03:49
10/26/25 03:49
Laboratory Results
PT 27.2 Sec (11.4-14.6) H 10/26/25 03:49
INR 2.50 10/26/25 03:49
APTT 35.6 Sec (23.4-35.0) H 10/19/25 03:15
Phosphorus 1.8 mg/dl (2.5-4.5) L 10/24/25 16:43
Magnesium 1.9 mg/dl (1.6-2.3) 10/24/25 16:43
Total Bilirubin 1.7 mg/dl (0.2-1.3) H 10/26/25 03:49
AST 37 U/L (14-36) H 10/26/25 03:49
ALT 28 U/L (0-35) 10/26/25 03:49
Alkaline Phosphatase 128 U/L (38-126) H 10/26/25 03:49
Lipase 195 U/L (23-300) 10/17/25 19:52
Vital Signs and I&O:
Vital Signs
Temp Pulse Resp BP Pulse Ox
98.9 F 94 27 156/90 100
10/26/25 08:00 10/26/25 06:00 10/26/25 06:00 10/26/25 06:00 10/26/25 06:00
I&O
10/25/25 10/26/25 10/27/25
06:59 06:59 06:59
Intake Total 3980 / 4069 2836 / 2836
Output Total 1979 750 / 750
Balance 1999
Physical Exam
Physical Exam
HEENT: Other (minimal jaundice )
Cardiology: Normal Sinus Rhythm
Pulmonary: Clear
GI: Soft, Non Distended and Tender (minimal upper pain )
Neuro: Non Focal (more conversant today )
--- NOTE | 2025-10-26 13:04 | CM ---
Chart reviewed. In ICU MELD rising back on IV NAC DC over 48 hours
--- NOTE | 2025-10-26 13:39 | VATNOTE ---
Called to place a PIV. Noted right ac in infiltrate. Right arm +2 +3 edema. Recommended us of the right arm. Primary Rn made aware.
--- NOTE | 2025-10-26 13:51 | PTCARENOTE ---
alert and oriented , cooperative , NSR on monitor , Bp adequate, she was oob to chair this am for 2 hours , tolerating diet and tube feeds , labs noted , her IV access is poor , she had a IV infiltrate on R arm , her arm is edematous , VAT team
here and accessed IV site in R foot , her L foot IV site leaking , she is to complete her IV NAC after this bag as per GI [employer]PERATIONS [employer]IE[employer]NT , labs noted , she is currently IMU level of care , Tylenol given for co headache
--- NOTE | 2025-10-26 17:59 | PTCARENOTE ---
pt eating and drinking without difficulty , small bore feeding tube removed as ordered , IV EMA DC as ordered , pt consulted for IR for paracentesis and to eval SAAG results
--- NOTE | 2025-10-26 20:16 | PTCARENOTE ---
on assessment pt drowsy but AAOx3, denies chest pain and SOB at this time, SR/ST on the monitor, 97% RA, bedside commode, multiple blisters and ecchymotic areas see wound assessment, bed alarm on and call torres in reach
[2025-10-26] MEDS: DUPHALAC/CHRONULAC 10 GRAMS PO (20:30)
[2025-10-26] MEDS: PROTONIX 40 MG PO (20:30)
[2025-10-26] MEDS: DUPHALAC/CHRONULAC TUBE (20:32)
[2025-10-26] MEDS: NSS (PRESERVATIVE FREE) IV (20:32)
[2025-10-26] MEDS: VITAMIN B1 TUBE (20:32)
[2025-10-26] MEDS: PROTONIX IV IV (20:32)
--- NOTE | 2025-10-26 21:05 | W.PN.UPDATE ---
Update Note
Progress Note Update
pt seen for follow up of depression in setting of serious illness, alcohol use disorder. Pt states she is feeling a lot better, more hopeful. Still with feeding tube but has been able to eat orally. States she is committed to sobriety, that this
episode has been a wake-up call. Does not want to consider inpatient rehab at this point.
[2025-10-27] VITALS (15 sets, daily range): BP systolic 95–158; BP diastolic 51–92; PULSE 112; BMI 26.4
[2025-10-27] MEDS: FIRVANQ 125 MG PO ×4 (00:21→17:27)
[2025-10-27] MEDS: ULTRAM 50 MG PO ×2 (01:22→09:44)
--- NOTE | 2025-10-27 03:47 | PTCARENOTE ---
Recc'd pt ~2300; AAOx3, drowsy but arouses easily to verbal stimuli. NSR on telemetry, edematous throughout. Tolerating RA, SpO2 96%, lungs sound diminished. RUE weeping, dressing in place C/D/I. Remainder of assessment as documented. Pt requesting
to use the commode, heavy assist x2, opted for bed crowe r/t pt safety, pt agreeable. C/O pain to the L foot, PRN Ultram given, see MAR. Pt asleep, resting comfortably in bed, call torres within reach, fall precautions/safety measures in place.
[2025-10-27 05:26] LABS: Hematocrit 29.9 % (37.0-47.0); Hemoglobin 10.2 g/dL (12.0-16.0); Mean Corp Hgb Conc. 34.1 g/dL (33.0-37.0); Mean Corpuscular Volume 90.9 fL (81.0-99.0); Platelet Count 110 10^3/uL (130-400); Red Cell Dist. Width 16.6 % (11.5-14.5)
[2025-10-27 05:38] LABS: ALT (SGPT) 26 U/L (0-35); AST (SGOT) 33 U/L (14-36); Albumin 2.3 g/dl (3.5-5.0); Alkaline Phosphatase 99 U/L (38-126); Blood Urea Nitrogen 6 mg/dl (7-17); Calcium 8.0 mg/dl (8.4-10.2); Carbon Dioxide 27 mmol/L (22-30); Chloride 100 mmol/L (98-107); Estimated Creatinine Clearance 118 ml/min; Glucose 99 mg/dl (70-99); Magnesium 1.5 mg/dl (1.6-2.3); Potassium 3.3 mmol/L (3.5-5.1); Sodium 130 mmol/L (135-145); Total Protein 4.8 g/dl (6.3-8.2); eGFR > 60.00
[2025-10-27 05:42] LABS: INR 2.37; PT 26.1 Sec (11.4-14.6)
[2025-10-27] MEDS: ZOSYN 50 IV ×4 (05:46→23:14)
--- NOTE | 2025-10-27 08:51 | W.PN.GI.CBS2 ---
Addendum entered and electronically signed by Magdalena Pederson MD 10/27/25 09:06:
I saw and examined the patient.
The H[employer]CHO[employer] SCI[employer] TUTOR's note was reviewed and I agree with the note.
Comment: Mentation is at baseline and awake alert oriented. She is scheduled for diagnostic paracentesis today to rule out SBP and if negative could likely DC antibiotics. She is currently on oral vancomycin for C. difficile although she was toxin
negative given her symptoms and immunocompromised status was started on [id number]. Also decreased dose of lactulose. She is motivated to go for outpatient rehab she says that AA meetings have not helped her in the past.
Original Note:
Today's Communication / Plan
-
continued improvement today with improved mental status, less diarrhea, improving abdominal pain, increased oral intakes, slight improved INR down to 2.37
labs continued improvement
Nac protocol completed 10/26, s/p 3 days vitamin K given
s/p MRI as noted
fever resolved
remain on IV Zosyn cont course per hospitalist team -- I reviewed 10/[address] Escobedo and [facility]ology ok for tap today with improved INR -- await paracentesis today to ensure no SBP than transition abx
c-diff ag + tox neg -- started with vanco with improved diarrhea (lactulose also taper dose)
cont to trend labs
cont oral diet = stressed good nutrition will add oral supplement at HS
Steroids contraindicated with fever concern for infection
strict EtOH cessation as outpatient and would benefit from EtOH rehab
Dr. Daniel reviewed case with [place] hepatology 10/24 no new recommendation added continued treatment of infectious process, I updated daughter 10/24 all questions answered
Assessment / Plan
-
Summary: Pt is a 60yo with hx neuropathy, ETOH and tobacco abuse with prior admission for crisis with psych placement, COPD, GERD on chronic PPI, back pain with prior back surgery , anxiety/depression with onset of abdominal pain with nausea
and vomiting. She also admits to odynophagia and recently drinking 2 bottle vodka weekly. On admission concern for ETOH hepatitis +/- cirrhosis. Ct on admission with concern for obstructing pancreatic head mass with biliary and pancreatic
ductal dilatation with possible choledocholithiasis, suspected esophagitis, cholelithiasis and cirrhosis. Follow up MRI without pancreatic mass or stone. She may have had EGD 10 years ago did not recall finding and hx tortuous colonoscopy with
follow up barium enema about 10 years ago near [facility] that she recalls as normal. No hx pancreatic or liver issues in past.
10/17/25 CT AP- Suspect heterogeneous obstructing pancreatic head mass with associated biliary and pancreatic ductal dilatation. Questionable choledocholithiasis. Suspect esophagitis. Cholelithiasis. Hepatic cirrhosis
MR Abdomen W/o & W Contrast
Severe hepatic cirrhosis.
Secondary findings of portal hypertension including splenomegaly and mild to moderate abdominal ascites.
Cholelithiasis.
Pancreatic atrophy and dilatation of the main pancreatic duct.
Two small cystic foci in the posterior head of the pancreas suggesting small pseudocysts or side branch intraductal papillary mucinous neoplasms. No clear MRI evidence for a suspicious pancreatic mass within the limitations of motion artifact.
Correlate with laboratory values and endoscopic ultrasound as clinically indicated.
#Acute on chronic alcoholic liver disease. NAC started 10/19--- DF 34.8 on admission, 95.9 on repeat 10/24
#CT Imaging c/f Cirrhosis with elevated LFT's MELD 29 on admission. repeat 10/24 26
#EtOH abuse with withdrawal and TME
# diarrhea with c-diff ag + tox neg
#Pancreatic head mass 1.8cm on CT noted with panc cyst on follow up MRI
# coagulopathy
# abdominal pain - improving
# suicidal ideations
# odynophagia with esophagitis on imaging -- improving
# leukocytosis
# thrombocytopenia
#persistent hypokalemia
# RAMA on admission
other med problems:
- neuropathy, ETOH and tobacco abuse with prior admission for crisis with psych placement, tobacco abuse, COPD, GERD on chronic PPI, back pain with prior back surgery , anxiety/depression
Recommendations:
continued improvement today with improved mental status, less diarrhea, improving abdominal pain, increased oral intakes, slight improved INR down to 2.37
labs continued improvement
Nac protocol completed 10/26, s/p 3 days vitamin K given
s/p MRI as noted
fever resolved
remain on IV Zosyn cont course per hospitalist team -- I reviewed 10/[address] Escobedo and [facility] ok for tap today with improved INR -- await paracentesis today to ensure no SBP than transition abx
c-diff ag + tox neg -- started with vanco with improved diarrhea (lactulose also taper dose)
cont to trend labs
cont oral diet = stressed good nutrition will add oral supplement at HS
Steroids contraindicated with fever concern for infection
strict EtOH cessation as outpatient and would benefit from EtOH rehab
Dr. Daniel reviewed case with [place] hepatology 10/24 no new recommendation added continued treatment of infectious process, I updated daughter 10/24 all questions answered
Subjective
Subjective
Date of Service: October 27, 2025
pt with continued improvement clinically, diarrhea improving, tolerating oral diet, minimal abdominal pain
Objective
Data Reviewed
Laboratory Data:
Laboratory Results
10/27/25 05:11
10/27/25 05:11
Laboratory Results
PT 26.1 Sec (11.4-14.6) H 10/27/25 05:11
INR 2.37 10/27/25 05:11
APTT 35.6 Sec (23.4-35.0) H 10/19/25 03:15
Phosphorus 2.7 mg/dl (2.5-4.5) 10/27/25 05:11
Magnesium 1.5 mg/dl (1.6-2.3) L 10/27/25 05:11
Total Bilirubin 2.2 mg/dl (0.2-1.3) H 10/27/25 05:11
AST 33 U/L (14-36) 10/27/25 05:11
ALT 26 U/L (0-35) 10/27/25 05:11
Alkaline Phosphatase 99 U/L (38-126) 10/27/25 05:11
Lipase 195 U/L (23-300) 10/17/25 19:52
Vital Signs and I&O:
Vital Signs
Temp Pulse Resp BP Pulse Ox
98.2 F 86 12 103/51 99
10/27/25 03:32 10/27/25 08:00 10/27/25 08:00 10/27/25 08:00 10/27/25 06:07
I&O
10/26/25 10/27/25 10/28/25
06:59 06:59 06:59
Intake Total 2836 / 2836 1891 / 1891
Output Total 750 / 750 600 / 600
Balance 2086 / 2086 1291 / 1291
Physical Exam
Physical Exam
HEENT: Other (jaundice )
Cardiology: Normal Sinus Rhythm
Pulmonary: Clear
GI: Soft, Distended (minimal ) and Non Tender
Extremities: Edema
Neuro: Non Focal
--- NOTE | 2025-10-27 09:36 | PTCARENOTE ---
Assumed care at 0700. VSS. AOx3, pleasant. NSR, HR 90s on telemetry. Went to IR for paracentesis and returned at 09:25. Bandaid to RLQ noted, clean and dry. Left w/ call torres in reach.
--- NOTE | 2025-10-27 09:41 | W.PN.HOSP.TC ---
Today's Communication/Plan
-
Follow paracentesis fluid analysis and consider discontinuing Zosyn if negative for SBP
Continue with oral vancomycin
Increase Lasix to twice a day
Replete potassium and magnesium
Restart her Cymbalta and Lyrica.
Continue with PT OT.
Assessment / Plan
Assessment / Plan
#Toxic metabolic encephalopathy secondary to delirium tremens from severe alcohol withdrawal and also concern for possible hepatic encephalopathy
#Alcohol abuse
Drinks 750 mL vodka 2 bottles a week last drink was 10/15/2025
Off of phenobarbital regimen with loading dose
Off of Precedex infusion
Off of restraint
Resolved encephalopathy
Psychiatry following
#Sepsis with elevated lactate likely secondary to obstructing pancreatic head mass versus secondary to cholangitis with possible CBD stone
# Abdominal pain, nausea and vomiting
#Lactic acidosis
# Diarrhea with C. difficile antigen positive and toxin negative
Resolved fevers
White count improving. Continue with Zosyn renal dose
f/u on blood cultures remains negative. Ua benign. CXR clear.
Lactic acidosis resolved.
MRCP of the abdomen shows no evidence of choledocholithiasis or biliary ductal dilatation. Cholelithiasis noted without cholecystitis. She had a diagnostic Paracentesis today and if negative for SBP will hold further antibiotics..
Much improved diarrhea-complete course of empirical p.o. vancomycin.
# Acute alcoholic hepatitis
#Hepatic cirrhosis
#Coagulopathy
#Acute on chronic alcoholic liver disease
#Hepatic encephalopathy
#Ascites
Elevated MELD score.
hep panel serologies negative
Status post IV NAC protocol time twice
Status post started on vitamin K for coagulopathy
Patient seems to be out of her encephalopathy.
Continue with lactulose to 10 mg twice daily.
INR improved
#Iatrogenic fluid overload
- Further increase in weight-continue the Lasix-increase the dose to twice a day.
-Follow weights
#Thrombocytopenia
-trend platelet for now. improving.
#Acute hypokalemia
repletee/monitor
# Hyponatremia
Suspected secondary to hypervolemia
Continue with Lasix. Placed on fluid restriction
#Hypomagnesemia-replete IV
#RAMA 2/2 vomiting
Creatinine 1.9/bun 38 prior creatinine 0.6 06/2024
Creatinine continues to downtrend.
Creatinine downtrending and improving
# Nonischemic myocardial injury
No active chest pain has esophageal burning only secondary to his esophagitis
Troponin has downtrended
No EKG
#Suicidal ideation unclear based on mentation
Suicide precaution. This morning denies any suicidal ideation.
Pt has made SI in the past per daughter
Psych eval
#Hypophosphatemia
Normalized
#Esophagitis per CT
IV Protonix 40 mg now on daily-increase to twice a day
May require EGD eventually. Will defer to GI
#Chronic neuropathy
Typically takes Cymbalta 90 mg daily, Lyrica 400mg daily has not had in the past 4 days
Restart Cymbalta and Lyrica
#COPD�no acute exacerbation
Does not use any inhalers
#Nicotine abuse
Half a pack a day x 30 years
Nicotine patch 14 mg
#CBD medical use for depression
#Insomnia
Patient takes doxepin 10 mg at bedtime
DVT prophylaxis-elevated INR. Hep sc held
Full code
Total time spent on today's encounter was 52 minutes which included time spent in counseling the patient/family regarding diagnosis and treatment plan as listed above, goals of care, and symptom management. Case was discussed with nursing staff,
specialists, and care coordinators/case management. All labs and imaging personally reviewed by me. Remainder the time spent in detailed review of previous records, lab data, imaging, and other medical provider documentation.
Portions of this chart may have been created with voice recognition software. Occasional wrong word or 'sound alike' substitutions may have occurred due to the inherent limitations of voice recognition software.
Anticipated Discharge: > 48 hours
Subjective/Interval History
-
Date of Service: October 27, 2025
Patient's NG tube is out. She is tolerating diet. No nausea vomiting. Her upper abdominal pain has improved. Able to swallow with less pain.
Denies fever or chills. Denies shortness of breath or chest pain.
She has throbbing pain in bilateral legs. She is known to have neuropathy and has used Lyrica. She tells me that neuropathy was attributed to alcohol. No diabetes mellitus.
Objective Data
-
Labs:
Laboratory Results
10/27/25
05:11
WBC 12.7 H
Hgb 10.2 L
Hct 29.9 L
Plt Count 110 L
PT 26.1 H
INR 2.37
Sodium 130 L
Potassium 3.3 L
Chloride 100
Carbon Dioxide 27
BUN 6 L
Creatinine 0.4 L
Glucose 99
Calcium 8.0 L
Total Bilirubin 2.2 H
AST 33
ALT 26
Alkaline Phosphatase 99
Vital Signs:
Vital Signs
Temp Pulse Resp BP Pulse Ox
98 F 95 19 104/52 96
10/27/25 08:45 10/27/25 08:45 10/27/25 08:45 10/27/25 08:45 10/27/25 08:45
I&O
10/26/25 10/27/25 10/28/25
06:59 06:59 06:59
Intake Total 2836 / 2836 1891 / 1891
Output Total 750 / 750 600 / 600
Balance 2085 / 2085 1291 / 1291
Physical Exam
-
General: Comfortable
Respiratory: Crackles (Bibasilar crackles) and Non Labored Respirations; Negative Wheezes or Accessory Resp Muscle Use
Cardiac: Regular Rhythm, S1/S2 and Tachycardic
Musculoskeletal: Edema, Left Lower Extrem (In the foot and the lower leg-suspect secondary to her recent IV in the foot and infiltration. Small flaccid blister noted as well on the foot)
Neuro: AO x 3; Negative Tremors
Psych: Calm; Negative Confused
Data Reviewed
-
Labs: Labs Reviewed by me
[2025-10-27] MEDS: NEUTRA-PHOS POWDER PACKET PO (10:31)
[2025-10-27] MEDS: KLOR-CON 40 MEQ PO ×2 (10:39→13:42)
[2025-10-27] MEDS: VITAMIN B1 100 MG PO ×2 (10:41→20:01)
[2025-10-27] MEDS: LYRICA 400 MG PO (10:41)
[2025-10-27] MEDS: FOLVITE 1 MG PO (10:41)
[2025-10-27] MEDS: CYMBALTA DELAYED RELEASE 60 MG PO (10:41)
[2025-10-27] MEDS: DUPHALAC/CHRONULAC 10 GRAMS PO ×2 (10:42→20:01)
[2025-10-27] MEDS: PROTONIX 40 MG PO ×2 (10:42→20:01)
[2025-10-27] MEDS: LASIX 20 MG IV (10:44)
[2025-10-27 11:29] LABS: Body Fluid Second Tech FB
[2025-10-27] MEDS: MAGNESIUM SULFATE 50 IV (11:46)
--- NOTE | 2025-10-27 14:43 | CM ---
Chart reviewed Working with PT and PT rec inpt rehab prior to dc home
[2025-10-27] MEDS: LASIX 20 MG PO (15:24)
--- NOTE | 2025-10-27 17:57 | W.PN.UPDATE ---
Update Note
Progress Note Update
Status post paracenteses positive for SBP she is already on Zosyn will continue and will give her albumin 1.5 g/kg today and will need 1 g/kg on day 3
[2025-10-27] MEDS: FLEXBUMIN 100 IV ×2 (19:50→23:13)
[2025-10-27] MEDS: MIRAPEX, GENERIC 0.5 MG PO (22:04)
[2025-10-28] VITALS (7 sets, daily range): BP systolic 102–127; BP diastolic 52–76
[2025-10-28] MEDS: FIRVANQ 125 MG PO ×5 (00:05→23:17)
[2025-10-28] MEDS: FLEXBUMIN 100 IV ×3 (01:08→05:23)
[2025-10-28] MEDS: ZOSYN 50 IV ×4 (05:24→23:17)
[2025-10-28 07:51] LABS: INR 2.48; PT 26.4 Sec (11.4-14.6)
[2025-10-28 07:53] LABS: Hematocrit 26.0 % (37.0-47.0); Hemoglobin 9.1 g/dL (12.0-16.0); Mean Corp Hgb Conc. 35.0 g/dL (33.0-37.0); Mean Corpuscular Volume 92.2 fL (81.0-99.0); Platelet Count 93 10^3/uL (130-400); Red Cell Dist. Width 16.1 % (11.5-14.5)
[2025-10-28 08:17] LABS: ALT (SGPT) 18 U/L (0-35); AST (SGOT) 25 U/L (14-36); Albumin 3.5 g/dl (3.5-5.0); Alkaline Phosphatase 70 U/L (38-126); Blood Urea Nitrogen 4 mg/dl (7-17); Calcium 8.7 mg/dl (8.4-10.2); Carbon Dioxide 26 mmol/L (22-30); Chloride 101 mmol/L (98-107); Estimated Creatinine Clearance 118 ml/min; Glucose 108 mg/dl (70-99); Magnesium 1.6 mg/dl (1.6-2.3); Potassium 3.3 mmol/L (3.5-5.1); Sodium 133 mmol/L (135-145); Total Protein 5.8 g/dl (6.3-8.2); eGFR > 60.00
[2025-10-28] MEDS: LYRICA 400 MG PO (08:23)
[2025-10-28] MEDS: CYMBALTA DELAYED RELEASE 60 MG PO (08:23)
[2025-10-28] MEDS: VITAMIN B1 100 MG PO ×2 (08:24→21:29)
[2025-10-28] MEDS: LASIX 20 MG PO ×2 (08:24→18:10)
[2025-10-28] MEDS: PROTONIX 40 MG PO ×2 (08:24→21:22)
[2025-10-28] MEDS: DUPHALAC/CHRONULAC 10 GRAMS PO (08:24)
[2025-10-28] MEDS: FOLVITE 1 MG PO (08:24)
--- NOTE | 2025-10-28 10:56 | W.PN.GI.CBS2 ---
Today's Communication / Plan
-
C/w abx
Repeat paracentesis tomorrow 10/29 (ordered)
Day 3 IV albumin due 10/30
Strongly encouraged ETOH cessation!
Will follow with you
Assessment / Plan
-
Summary: Pt is a 60yo with hx neuropathy, ETOH and tobacco abuse with prior admission for crisis with psych placement, COPD, GERD on chronic PPI, back pain with prior back surgery , anxiety/depression with onset of abdominal pain with nausea
and vomiting. She also admits to odynophagia and recently drinking 2 bottle vodka weekly. On admission concern for ETOH hepatitis +/- cirrhosis. Ct on admission with concern for obstructing pancreatic head mass with biliary and pancreatic
ductal dilatation with possible choledocholithiasis, suspected esophagitis, cholelithiasis and cirrhosis. Follow up MRI without pancreatic mass or stone. She may have had EGD 10 years ago did not recall finding and hx tortuous colonoscopy with
follow up barium enema about 10 years ago near [facility] that she recalls as normal. No hx pancreatic or liver issues in past.
10/17/25 CT AP- Suspect heterogeneous obstructing pancreatic head mass with associated biliary and pancreatic ductal dilatation. Questionable choledocholithiasis. Suspect esophagitis. Cholelithiasis. Hepatic cirrhosis
MR Abdomen W/o & W Contrast
Severe hepatic cirrhosis.
Secondary findings of portal hypertension including splenomegaly and mild to moderate abdominal ascites.
Cholelithiasis.
Pancreatic atrophy and dilatation of the main pancreatic duct.
Two small cystic foci in the posterior head of the pancreas suggesting small pseudocysts or side branch intraductal papillary mucinous neoplasms. No clear MRI evidence for a suspicious pancreatic mass within the limitations of motion artifact.
Correlate with laboratory values and endoscopic ultrasound as clinically indicated.
Impressions:
#SBP
1st episode paracentesis 110mL 10/27
#ETOH cirrhosis and acute ETOH hepatitis NAC started 10/19--- DF 34.8 on admission, 95.9 on repeat 10/24
MELD 29 on admission
#EtOH abuse with withdrawal and TME
#Diarrhea with c-diff ag + tox neg
#Pancreatic head mass 1.8cm on CT noted with panc cyst on follow up MRI
#GERD
# coagulopathy
# suicidal ideations
# odynophagia with esophagitis on imaging -- improving
# leukocytosis
# thrombocytopenia
#persistent hypokalemia
# RAMA on admission
other med problems:
- neuropathy, ETOH and tobacco abuse with prior admission for crisis with psych placement, tobacco abuse, COPD, GERD on chronic PPI, back pain with prior back surgery , anxiety/depression
Recommendations:
- C/w Zosyn for SBP
- IV albumin given 1.5grams on 10/27 and will need 1gram/kg on day 3
- Repeat paracentesis in 48 hrs due 10/29 afternoon. Ordered
- Nac protocol completed 10/26, s/p 3 days vitamin K given
-C/w low salt diet
- C/w Protonix 40mg BID
- C/w lactulose titrate to 2BM/day
- C/w oral vancomycin to complete 10 day course for Cdiff antigen + negative toxin
- ETOH cessation--strongly counseled
- Outpatient basis she will need repeat MRI for follow up on pancreatic cyst
Will follow with you
Subjective
Subjective
Date of Service: October 28, 2025
She reports 'extremely good' night. Tolerating ate 100% of low salt diet. Reports 2 nonbloody BM this AM
Objective
Data Reviewed
Laboratory Data:
Laboratory Results
10/28/25 07:28
10/28/25 07:28
Laboratory Results
PT 26.4 Sec (11.4-14.6) H 10/28/25 07:28
INR 2.48 10/28/25 07:28
APTT 35.6 Sec (23.4-35.0) H 10/19/25 03:15
Phosphorus 2.7 mg/dl (2.5-4.5) 10/27/25 05:11
Magnesium 1.6 mg/dl (1.6-2.3) 10/28/25 07:28
Total Bilirubin 2.6 mg/dl (0.2-1.3) H 10/28/25 07:28
AST 25 U/L (14-36) 10/28/25 07:28
ALT 18 U/L (0-35) 10/28/25 07:28
Alkaline Phosphatase 70 U/L (38-126) 10/28/25 07:28
Lipase 195 U/L (23-300) 10/17/25 19:52
Vital Signs and I&O:
Vital Signs
Temp Pulse Resp BP Pulse Ox
98.6 F 94 18 125/76 94
10/28/25 08:09 10/28/25 08:09 10/28/25 08:09 10/28/25 08:09 10/28/25 08:09
I&O
10/27/25 10/28/25 10/29/25
06:59 06:59 06:59
Intake Total 1891 / 1891 1250 / 1250
Output Total 600 / 600
Balance 1291 / 1291 1250 / 1250
Physical Exam
Physical Exam
GEN: No acute distress, conversant, chronically ill appearing
HEENT: +icteric, extraocular movements intact, clear oropharynx without exudates
GI: soft, non-distended, bruised in LLQ, no fluid wavenot tender to palpation, normal active bowel sounds, no hepatosplenomegaly
EXT: warm, well perfused, 2+ edema bilaterally
NEURO: AAOx3, non-focal
[2025-10-28] MEDS: TYLENOL 650 MG PO ×2 (12:49→23:50)
--- NOTE | 2025-10-28 13:13 | W.PN.HOSP.TC ---
Today's Communication/Plan
-
Continue with Zosyn
Replete potassium and magnesium
Repeat paracentesis tomorrow
Continue p.o. vancomycin
Assessment / Plan
Assessment / Plan
#Toxic metabolic encephalopathy secondary to delirium tremens from severe alcohol withdrawal and also concern for possible hepatic encephalopathy
#Alcohol abuse
Drinks 750 mL vodka 2 bottles a week last drink was 10/15/2025
Off of phenobarbital regimen with loading dose
Off of Precedex infusion
Off of restraint
Resolved encephalopathy
Psychiatry following
#Sepsis with elevated lactate
# SBP -first episode
#Lactic acidosis
#Diarrhea with C. difficile antigen positive and toxin negative
Resolved fevers
Normalized white count
Diagnostic paracentesis consistent with SBP. Culture negative so far but patient was on antibiotics.
Continue with Zosyn
Repeat diagnostic paracentesis tomorrow
f/u on blood cultures remains negative. Ua benign. CXR clear.
Lactic acidosis resolved.
MRCP of the abdomen shows no evidence of choledocholithiasis or biliary ductal dilatation. Cholelithiasis noted without cholecystitis.
Much improved diarrhea-complete course of empirical p.o. vancomycin.
# Acute alcoholic hepatitis
#Hepatic cirrhosis
#Coagulopathy
#Acute on chronic alcoholic liver disease
#Hepatic encephalopathy
#Ascites
Elevated MELD score.
hep panel serologies negative
Status post IV NAC protocol time twice
Status post started on vitamin K for coagulopathy
Patient seems to be out of her encephalopathy.
Continue with lactulose to 10 mg twice daily.
INR improved
#Iatrogenic fluid overload
- Further increase in weight-continue the Lasix-increased the dose to twice a day.
-Follow weights
#Thrombocytopenia
-trend platelet for now. improving.
#Acute hypokalemia
repletee/monitor
# Hyponatremia
Suspected secondary to [id number] in the
Continue with Lasix.
#Hypomagnesemia-replete IV
#RAMA 2/2 vomiting
Creatinine 1.9/bun 38 prior creatinine 0.6 06/2024
Creatinine continues to downtrend.
Creatinine downtrending and improving
# Nonischemic myocardial injury
No active chest pain has esophageal burning only secondary to his esophagitis
Troponin has downtrended
No EKG
#Suicidal ideation unclear based on mentation
Suicide precaution. This morning denies any suicidal ideation.
Pt has made SI in the past per daughter
Psych eval
#Hypophosphatemia
Normalized
#Esophagitis per CT
IV Protonix 40 mg now on daily-increase to twice a day
May require EGD eventually. Will defer to GI
#Chronic neuropathy
Typically takes Cymbalta 90 mg daily, Lyrica 400mg daily has not had in the past 4 days
Restart Cymbalta and Lyrica
#COPD�no acute exacerbation
Does not use any inhalers
#Nicotine abuse
Half a pack a day x 30 years
Nicotine patch 14 mg
#CBD medical use for depression
#Insomnia
Patient takes doxepin 10 mg at bedtime
DVT prophylaxis-elevated INR. Hep sc held
Full code
Total time spent on today's encounter was 52 minutes which included time spent in counseling the patient/family regarding diagnosis and treatment plan as listed above, goals of care, and symptom management. Case was discussed with nursing staff,
specialists, and care coordinators/case management. All labs and imaging personally reviewed by me. Remainder the time spent in detailed review of previous records, lab data, imaging, and other medical provider documentation.
Portions of this chart may have been created with voice recognition software. Occasional wrong word or 'sound alike' substitutions may have occurred due to the inherent limitations of voice recognition software.
Anticipated Discharge: > 48 hours
Subjective/Interval History
-
Date of Service: October 28, 2025
Feeling improved. Much improved abdominal pain. She still has some discomfort with food and points towards the lower esophagus area. No nausea vomiting. No further diarrhea. No fever or chills.
Denies chest pain or shortness of breath.
Objective Data
-
Labs:
Laboratory Results
10/28/25
07:28
WBC 6.3
Hgb 9.1 L
Hct 26.0 L
Plt Count 93 L
PT 26.4 H
INR 2.48
Sodium 133 L
Potassium 3.3 L
Chloride 101
Carbon Dioxide 26
BUN 4 L
Creatinine 0.4 L
Glucose 108 H
Calcium 8.7
Total Bilirubin 2.6 H
AST 25
ALT 18
Alkaline Phosphatase 70
Vital Signs:
Vital Signs
Temp Pulse Resp BP Pulse Ox
97.9 F 100 18 124/76 96
10/28/25 12:26 10/28/25 12:26 10/28/25 12:26 10/28/25 12:26 10/28/25 12:26
I&O
10/27/25 10/28/25 10/29/25
06:59 06:59 06:59
Intake Total 1891 / 1891 1250 / 1250
Output Total 600 / 600
Balance 1291 / 1291 1250 / 1250
Physical Exam
-
General: No Apparent Distress
Respiratory: Clear to Auscultation and Non Labored Respirations; Negative Accessory Resp Muscle Use
Cardiac: Regular Rhythm and S1/S2
GI: Soft, Nontender (today), Nondistended and Normal Bowel Sounds
Neuro: AO x 3; Negative Tremors
Psych: Calm; Negative Confused or Agitated
Data Reviewed
-
Labs: Labs Reviewed by me
[2025-10-28] MEDS: KCL 40 MEQ PO (13:35)
[2025-10-28] MEDS: DUPHALAC/CHRONULAC PO ×2 (21:22→21:48)
[2025-10-28] MEDS: MAGNESIUM OXIDE 400 MG PO (21:23)
[2025-10-28] MEDS: MIRAPEX, GENERIC 0.5 MG PO (21:31)
[2025-10-29] MEDS: ZOSYN 50 IV ×3 (04:50→17:20)
[2025-10-29] MEDS: FIRVANQ 125 MG PO ×3 (05:38→17:20)
[2025-10-29 06:00] VITALS: BMI 25.4
[2025-10-29 07:40] VITALS: BP 110/58
[2025-10-29] MEDS: DUPHALAC/CHRONULAC 10 GRAMS PO ×2 (08:05→20:25)
[2025-10-29] MEDS: MAGNESIUM OXIDE 400 MG PO ×2 (08:06→20:26)
[2025-10-29] MEDS: CYMBALTA DELAYED RELEASE 60 MG PO (08:06)
[2025-10-29] MEDS: LASIX 20 MG PO ×2 (08:07→17:20)
[2025-10-29] MEDS: PROTONIX 40 MG PO ×2 (08:07→20:26)
[2025-10-29] MEDS: FOLVITE 1 MG PO (08:08)
[2025-10-29] MEDS: VITAMIN B1 100 MG PO ×2 (08:08→20:40)
[2025-10-29] MEDS: LYRICA 400 MG PO (08:08)
[2025-10-29] MEDS: TYLENOL 500 MG PO (08:12)
--- NOTE | 2025-10-29 09:32 | W.PN.GI.CBS2 ---
Today's Communication / Plan
-
- continue antibiotics
- IV albumin - will need 1gram/kg on day 3 ( tomorrow 10/30 )
- Repeat paracentesis in 48 hrs due 10/29 . Ordered by
- follow up with GI as outpatient
Assessment / Plan
-
Summary: Pt is a 60yo with hx neuropathy, ETOH and tobacco abuse with prior admission for crisis with psych placement, COPD, GERD on chronic PPI, back pain with prior back surgery , anxiety/depression with onset of abdominal pain with nausea
and vomiting. She also admits to odynophagia and recently drinking 2 bottle vodka weekly. On admission concern for ETOH hepatitis +/- cirrhosis. Ct on admission with concern for obstructing pancreatic head mass with biliary and pancreatic
ductal dilatation with possible choledocholithiasis, suspected esophagitis, cholelithiasis and cirrhosis. Follow up MRI without pancreatic mass or stone. She may have had EGD 10 years ago did not recall finding and hx tortuous colonoscopy with
follow up barium enema about 10 years ago near [facility] that she recalls as normal. No hx pancreatic or liver issues in past.
10/17/25 CT AP- Suspect heterogeneous obstructing pancreatic head mass with associated biliary and pancreatic ductal dilatation. Questionable choledocholithiasis. Suspect esophagitis. Cholelithiasis. Hepatic cirrhosis
MR Abdomen W/o & W Contrast
Severe hepatic cirrhosis.
Secondary findings of portal hypertension including splenomegaly and mild to moderate abdominal ascites.
Cholelithiasis.
Pancreatic atrophy and dilatation of the main pancreatic duct.
Two small cystic foci in the posterior head of the pancreas suggesting small pseudocysts or side branch intraductal papillary mucinous neoplasms. No clear MRI evidence for a suspicious pancreatic mass within the limitations of motion artifact.
Correlate with laboratory values and endoscopic ultrasound as clinically indicated.
Impressions:
#SBP
1st episode paracentesis 110mL 10/27. fluid culture -no growth
#ETOH cirrhosis and acute ETOH hepatitis NAC started 10/19--- DF 34.8 on admission, 95.9 on repeat 10/24
MELD 29 on admission
#EtOH abuse with withdrawal and TME
#Diarrhea with c-diff ag + tox neg
#Pancreatic head mass 1.8cm on CT noted with panc cyst on follow up MRI
#GERD
# coagulopathy
# suicidal ideations
# odynophagia with esophagitis on imaging -- improving
# leukocytosis
# thrombocytopenia
#persistent hypokalemia
# RAMA on admission
other med problems:
- neuropathy, ETOH and tobacco abuse with prior admission for crisis with psych placement, tobacco abuse, COPD, GERD on chronic PPI, back pain with prior back surgery , anxiety/depression
Recommendations:
- continue Zosyn for SBP
- IV albumin given 1.5grams on 10/27 and will need 1gram/kg on day 3 ( tomorrow 10/30 )
- Repeat paracentesis in 48 hrs due 10/29 . Ordered by
- Nac protocol completed 10/26, s/p 3 days vitamin K given
-C/w low salt diet
- C/w Protonix 40mg BID
- C/w lactulose titrate to 2BM/day
- C/w oral vancomycin to complete 10 day course for Cdiff antigen + negative toxin
- ETOH cessation--strongly counseled
- Outpatient - she will need repeat MRI for follow up on pancreatic cyst
Will follow with you
Total Time Spent with Patient (in minutes): 35
Subjective
Subjective
Date of Service: October 29, 2025
Denies any GI complaint
Objective
Data Reviewed
Laboratory Data:
Laboratory Results
PT 26.4 Sec (11.4-14.6) H 10/28/25 07:28
INR 2.48 10/28/25 07:28
APTT 35.6 Sec (23.4-35.0) H 10/19/25 03:15
Phosphorus 2.7 mg/dl (2.5-4.5) 10/27/25 05:11
Magnesium 1.6 mg/dl (1.6-2.3) 10/28/25 07:28
Total Bilirubin 2.6 mg/dl (0.2-1.3) H 10/28/25 07:28
AST 25 U/L (14-36) 10/28/25 07:28
ALT 18 U/L (0-35) 10/28/25 07:28
Alkaline Phosphatase 70 U/L (38-126) 10/28/25 07:28
Lipase 195 U/L (23-300) 10/17/25 19:52
Vital Signs and I&O:
Vital Signs
Temp Pulse Resp BP Pulse Ox
98.7 F 81 16 110/58 96
10/29/25 07:40 10/29/25 08:07 10/29/25 07:40 10/29/25 08:07 10/29/25 08:15
I&O
10/28/25 10/29/25 10/30/25
06:59 06:59 06:59
Intake Total 1250 / 1250 850 / 850
Balance 1250 / 1250 850 / 850
Physical Exam
Physical Exam
GI: Soft, Non Distended and Non Tender
[2025-10-29 09:34] LABS: Hematocrit 27.8 % (37.0-47.0); Hemoglobin 9.6 g/dL (12.0-16.0); Mean Corp Hgb Conc. 34.5 g/dL (33.0-37.0); Mean Corpuscular Volume 93.0 fL (81.0-99.0); Platelet Count 118 10^3/uL (130-400); Red Cell Dist. Width 16.1 % (11.5-14.5)
[2025-10-29 09:38] LABS: Blood Urea Nitrogen < 2 mg/dl (7-17); Calcium 8.6 mg/dl (8.4-10.2); Carbon Dioxide 27 mmol/L (22-30); Chloride 100 mmol/L (98-107); Estimated Creatinine Clearance 118 ml/min; Glucose 109 mg/dl (70-99); Potassium 3.4 mmol/L (3.5-5.1); Sodium 132 mmol/L (135-145); eGFR > 60.00
[2025-10-29 10:44] VITALS: BP 100/52; BP_SYST 81
--- NOTE | 2025-10-29 10:59 | W.PN.HOSP.TC ---
Today's Communication/Plan
-
Continue with antibiotic. Follow repeat diagnostic paracentesis.
Continue p.o. vancomycin.
Continue with Lasix.
Replete potassium.
Continue PT OT.
Assessment / Plan
Assessment / Plan
#Toxic metabolic encephalopathy secondary to delirium tremens from severe alcohol withdrawal and also concern for possible hepatic encephalopathy
#Alcohol abuse
Drinks 750 mL vodka 2 bottles a week last drink was 10/15/2025
Off of phenobarbital regimen with loading dose
Off of Precedex infusion
Off of restraint
Resolved encephalopathy
Psychiatry following
#Sepsis with elevated lactate
# SBP -first episode
#Lactic acidosis
#Diarrhea with C. difficile antigen positive and toxin negative
Resolved fevers
Normalized white count
Diagnostic paracentesis consistent with SBP. Culture negative so far but patient was on antibiotics.
Continue with Zosyn
Repeat diagnostic paracentesis today
f/u on blood cultures remains negative. Ua benign. CXR clear.
Lactic acidosis resolved.
MRCP of the abdomen shows no evidence of choledocholithiasis or biliary ductal dilatation. Cholelithiasis noted without cholecystitis.
Much improved diarrhea-complete course of empirical p.o. vancomycin.
# Acute alcoholic hepatitis
#Hepatic cirrhosis
#Coagulopathy
#Acute on chronic alcoholic liver disease
#Hepatic encephalopathy
#Ascites
Elevated MELD score.
hep panel serologies negative
Status post IV NAC protocol time twice
Status post started on vitamin K for coagulopathy
Patient seems to be out of her encephalopathy.
Continue with lactulose to 10 mg twice daily.
INR improved
#Iatrogenic fluid overload
- Improving wt-continue the Lasix-increased the dose to twice a day.
-Follow weights
#Thrombocytopenia
-trend platelet for now. improving.
#Acute hypokalemia
repletee/monitor
# Hyponatremia
Suspected secondary to [id number] in the
Continue with Lasix.
#Hypomagnesemia-replete IV
#RAMA 2/2 vomiting
Creatinine 1.9/bun 38 prior creatinine 0.6 06/2024
Creatinine continues to downtrend.
Creatinine downtrending and improving
# Nonischemic myocardial injury
No active chest pain has esophageal burning only secondary to his esophagitis
Troponin has downtrended
No EKG
#Suicidal ideation unclear based on mentation
Suicide precaution. This morning denies any suicidal ideation.
Pt has made SI in the past per daughter
Psych eval
#Hypophosphatemia
Normalized
#Esophagitis per CT
IV Protonix 40 mg now on daily-increase to twice a day
May require EGD eventually. Will defer to GI
#Chronic neuropathy
Typically takes Cymbalta 90 mg daily, Lyrica 400mg daily has not had in the past 4 days
Restart Cymbalta and Lyrica
#COPD�no acute exacerbation
Does not use any inhalers
#Nicotine abuse
Half a pack a day x 30 years
Nicotine patch 14 mg
#CBD medical use for depression
#Insomnia
Patient takes doxepin 10 mg at bedtime
DVT prophylaxis-elevated INR. Hep sc held
Full code
Portions of this chart may have been created with voice recognition software. Occasional wrong word or 'sound alike' substitutions may have occurred due to the inherent limitations of voice recognition software.
Anticipated Discharge: > 48 hours
Subjective/Interval History
-
Date of Service: October 29, 2025
Patient feeling continued improvement with abdominal pain. None today. Tolerating diet.
Her bowel movements are loose with lactulose.
No fever chills.
Denies shortness of breath or chest pain.
Objective Data
-
Labs:
Laboratory Results
10/29/25
08:26
WBC 5.7
Hgb 9.6 L
Hct 27.8 L
Plt Count 118 L D
Sodium 132 L
Potassium 3.4 L
Chloride 100
Carbon Dioxide 27
BUN < 2 L
Creatinine 0.5 L
Glucose 109 H
Calcium 8.6
Vital Signs:
Vital Signs
Temp Pulse Resp BP Pulse Ox
98.3 F 81 15 100/52 99
10/29/25 10:44 10/29/25 10:44 10/29/25 10:44 10/29/25 10:44 10/29/25 10:53
I&O
10/28/25 10/29/25 10/30/25
06:59 06:59 06:59
Intake Total 1250 / 1250 850 / 850
Balance 1250 / 1250 850 / 850
Physical Exam
-
General: Comfortable
HEENT: Moist Mucous Membranes
Respiratory: Non Labored Respirations; Negative Accessory Resp Muscle Use
Cardiac: Regular Rhythm and S1/S2
GI: Soft and Nontender
Neuro: AO x 3; Negative Tremors
Psych: Calm; Negative Confused
Data Reviewed
-
Labs: Labs Reviewed by me
[2025-10-29] MEDS: KCL 40 MEQ PO (11:28)
[2025-10-29] MEDS: KCL ELIXIR 40 MEQ PO (15:02)
[2025-10-29 15:05] VITALS: BP 115/63
--- NOTE | 2025-10-29 16:00 | CM ---
Patient seen at bedside in [address] [place] [address]. Patient stated that her family will transport her home and that she would benefit from a walker, CM sent tt to Dr. Rashid and requested script for walker. Patient plan is for possible discharge home tomorrow. CM
will continue to follow for discharge planning needs.
Plan; home with VN; tt sent to liaison and will follow for acceptance
--- NOTE | 2025-10-29 16:20 | VNURNOTE ---
Home Health Liaison met with patient at bedside to discuss [facility] nurse/therapy, visits, schedule and homebound status. Patient is agreeable and understands that visits at home will be 2-3 x per week to assess and teach medical management.
Patient is aware that [facility] will contact them for start of care within a week after discharge from . Provided contact number for [facility].
[facility] referral completed in [facility].
[2025-10-29 19:47] VITALS: BP 126/74
[2025-10-29] MEDS: TYLENOL 650 MG PO (20:29)
[2025-10-29] MEDS: MIRAPEX, GENERIC 0.5 MG PO (21:31)
[2025-10-29 23:32] VITALS: BP 124/70
[2025-10-30] MEDS: FIRVANQ 125 MG PO ×5 (00:06→23:35)
[2025-10-30] MEDS: ZOSYN 50 IV ×5 (00:06→23:35)
[2025-10-30] MEDS: MYLICON 80 MG PO (00:18)
[2025-10-30 03:20] VITALS: BP 108/58
[2025-10-30] MEDS: ULTRAM 50 MG PO ×2 (04:25→19:32)
[2025-10-30 06:00] VITALS: BMI 25.2
[2025-10-30 07:00] VITALS: BP 111/60
[2025-10-30] MEDS: LYRICA 400 MG PO (08:11)
[2025-10-30] MEDS: FOLVITE 1 MG PO (08:12)
[2025-10-30] MEDS: VITAMIN B1 100 MG PO ×2 (08:12→19:25)
[2025-10-30] MEDS: CYMBALTA DELAYED RELEASE 60 MG PO (08:12)
[2025-10-30] MEDS: DUPHALAC/CHRONULAC 10 GRAMS PO ×2 (08:12→19:26)
[2025-10-30] MEDS: LASIX 20 MG PO ×2 (08:12→17:12)
[2025-10-30] MEDS: MAGNESIUM OXIDE 400 MG PO ×2 (08:12→19:26)
[2025-10-30] MEDS: PROTONIX 40 MG PO ×2 (08:12→19:26)
[2025-10-30 08:13] LABS: Blood Urea Nitrogen < 2 mg/dl (7-17); Calcium 8.6 mg/dl (8.4-10.2); Carbon Dioxide 28 mmol/L (22-30); Chloride 99 mmol/L (98-107); Estimated Creatinine Clearance 118 ml/min; Glucose 113 mg/dl (70-99); Potassium 3.6 mmol/L (3.5-5.1); Sodium 131 mmol/L (135-145); eGFR > 60.00
--- NOTE | 2025-10-30 09:13 | W.PN.HOSP.TC ---
Today's Communication/Plan
-
DC planning
Assessment / Plan
Assessment / Plan
#Toxic metabolic encephalopathy secondary to delirium tremens from severe alcohol withdrawal and also concern for possible hepatic encephalopathy
#Alcohol abuse
Drinks 750 mL vodka 2 bottles a week last drink was 10/15/2025
Off of phenobarbital regimen with loading dose
Off of Precedex infusion
Off of restraint
Resolved encephalopathy
Psychiatry seems to have signed off.
#Sepsis with elevated lactate
# SBP -first episode
#Lactic acidosis
#Diarrhea with C. difficile antigen positive and toxin negative
Resolved fevers
Normalized white count
Diagnostic paracentesis consistent with SBP. Culture negative so far but patient was on antibiotics.
Continue with Zosyn
Repeat ultrasound abdomen shows trace volume of ascites not sufficient for percutaneous drainage
f/u on blood cultures remains negative. Ua benign. CXR clear.
Lactic acidosis resolved.
MRCP of the abdomen shows no evidence of choledocholithiasis or biliary ductal dilatation. Cholelithiasis noted without cholecystitis.
Much improved diarrhea-complete course of empirical p.o. vancomycin.
# Acute alcoholic hepatitis
#Hepatic cirrhosis
#Coagulopathy
#Acute on chronic alcoholic liver disease
#Hepatic encephalopathy
#Ascites
Elevated MELD score.
hep panel serologies negative
Status post IV NAC protocol time twice
Status post started on vitamin K for coagulopathy
Patient seems to be out of her encephalopathy.
Continue with lactulose to 10 mg twice daily.
INR improved
#Iatrogenic fluid overload
- Improving wt-continue the Lasix-increased the dose to twice a day.
-Follow weights
#Thrombocytopenia
-trend platelet for now. improving.
#Acute hypokalemia
Normalized
# Hyponatremia
Suspected secondary to hypervolemia
Fluid restrict
Continue with Lasix.
#Hypomagnesemia-repleted IV
#RAMA 2/2 vomiting
Creatinine 1.9/bun 38 prior creatinine 0.6 06/2024
Creatinine continues to downtrend.
Creatinine downtrending and improving
# Nonischemic myocardial injury
No active chest pain has esophageal burning only secondary to his esophagitis
Troponin has downtrended
No EKG
#Suicidal ideation
Denies any further suicidal ideation
Psych eval noted
#Hypophosphatemia
Normalized
#Esophagitis per CT
IV Protonix 40 mg now on daily-increase to twice a day
May require EGD eventually. Will defer to GI
#Chronic neuropathy
Typically takes Cymbalta 90 mg daily, Lyrica 400mg daily has not had in the past 4 days
Restart Cymbalta and Lyrica
#COPD�no acute exacerbation
Does not use any inhalers
#Nicotine abuse
Half a pack a day x 30 years
Nicotine patch 14 mg
#CBD medical use for depression
#Insomnia
Patient takes doxepin 10 mg at bedtime
DVT prophylaxis-elevated INR. Hep sc held
Full code
Will discuss with GI-if okay from GI standpoint will discharge patient home and follow-up as outpatient
Portions of this chart may have been created with voice recognition software. Occasional wrong word or 'sound alike' substitutions may have occurred due to the inherent limitations of voice recognition software.
Anticipated Discharge: Today
Subjective/Interval History
-
Date of Service: October 30, 2025
No overnight events.
Improved physical ability-PT recommending home health.
Denies any fever or chills. Tolerating diet. Stools are loose but not frequent.
Denies shortness of breath.
Objective Data
-
Labs:
Laboratory Results
10/30/25
07:24
Sodium 131 L
Potassium 3.6
Chloride 99
Carbon Dioxide 28
BUN < 2 L
Creatinine 0.5 L
Glucose 113 H
Calcium 8.6
Vital Signs:
Vital Signs
Temp Pulse Resp BP Pulse Ox
98.4 F 93 20 111/60 97
10/30/25 07:00 10/30/25 07:00 10/30/25 07:00 10/30/25 07:00 10/30/25 07:00
I&O
10/29/25 10/30/25 10/31/25
06:59 06:59 06:59
Intake Total 850 / 850 1660 / 1660
Balance 850 / 850 1660 / 1660
Physical Exam
-
General: No Apparent Distress
HEENT: Moist Mucous Membranes
Respiratory: Non Labored Respirations; Negative Accessory Resp Muscle Use
Cardiac: Regular Rhythm and S1/S2; Negative Tachycardic
GI: Soft and Nontender
Neuro: AO x 3; Negative Tremors
Psych: Calm; Negative Confused or Agitated
Data Reviewed
-
Labs: Labs Reviewed by me
[2025-10-30] MEDS: FLEXBUMIN 100 IV ×3 (10:09→13:57)
[2025-10-30 11:15] VITALS: BP 105/46
--- NOTE | 2025-10-30 12:08 | W.PN.GI.CBS2 ---
Today's Communication / Plan
-
day 3 IV albumin today
ID eval
Follow-up with GI as outpatient
Assessment / Plan
-
Summary: Pt is a 60yo with hx neuropathy, ETOH and tobacco abuse with prior admission for crisis with psych placement, COPD, GERD on chronic PPI, back pain with prior back surgery , anxiety/depression with onset of abdominal pain with nausea
and vomiting. She also admits to odynophagia and recently drinking 2 bottle vodka weekly. On admission concern for ETOH hepatitis +/- cirrhosis. Ct on admission with concern for obstructing pancreatic head mass with biliary and pancreatic
ductal dilatation with possible choledocholithiasis, suspected esophagitis, cholelithiasis and cirrhosis. Follow up MRI without pancreatic mass or stone. She may have had EGD 10 years ago did not recall finding and hx tortuous colonoscopy with
follow up barium enema about 10 years ago near [facility] that she recalls as normal. No hx pancreatic or liver issues in past.
10/17/25 CT AP- Suspect heterogeneous obstructing pancreatic head mass with associated biliary and pancreatic ductal dilatation. Questionable choledocholithiasis. Suspect esophagitis. Cholelithiasis. Hepatic cirrhosis
MR Abdomen W/o & W Contrast
Severe hepatic cirrhosis.
Secondary findings of portal hypertension including splenomegaly and mild to moderate abdominal ascites.
Cholelithiasis.
Pancreatic atrophy and dilatation of the main pancreatic duct.
Two small cystic foci in the posterior head of the pancreas suggesting small pseudocysts or side branch intraductal papillary mucinous neoplasms. No clear MRI evidence for a suspicious pancreatic mass within the limitations of motion artifact.
Correlate with laboratory values and endoscopic ultrasound as clinically indicated.
Impressions:
#SBP
1st episode paracentesis 110mL 10/27. fluid culture -no growth
#ETOH cirrhosis and acute ETOH hepatitis NAC started 10/19--- DF 34.8 on admission, 95.9 on repeat 10/24
MELD 29 on admission
#EtOH abuse with withdrawal and TME
#Diarrhea with c-diff ag + tox neg
#Pancreatic head mass 1.8cm on CT noted with panc cyst on follow up MRI
#GERD
# coagulopathy
# suicidal ideations
# odynophagia with esophagitis on imaging -- improving
# leukocytosis
# thrombocytopenia
#persistent hypokalemia
# RAMA on admission
other med problems:
- neuropathy, ETOH and tobacco abuse with prior admission for crisis with psych placement, tobacco abuse, COPD, GERD on chronic PPI, back pain with prior back surgery , anxiety/depression
Recommendations:
- No enough ascitic fluid for repeat paracentesis yesterday . currently on zosyn . fluid cx negative . will get ID opinion on antibiotics and secondary prophylaxis
- IV albumin 1gram/kg today - ordered
- Nac protocol completed 10/26, s/p 3 days vitamin K given
-C/w low salt diet
- C/w Protonix 40mg BID
- C/w lactulose titrate to 2BM/day
- C/w oral vancomycin to complete 10 day course for Cdiff antigen + negative toxin
- ETOH cessation--strongly counseled
- Outpatient - she will need repeat MRI for follow up on pancreatic cyst
- Discussed with hospitalist. No further recommendation from GI at this point after ID [id number] with Dr. Doe as outpatient. Message sent
Total Time Spent with Patient (in minutes): 35
Subjective
Subjective
Date of Service: October 30, 2025
No GI complaints. Unable to do paracentesis yesterday-no enough fluid. Due for albumin today
Objective
Data Reviewed
Laboratory Data:
Laboratory Results
10/29/25 08:26
10/30/25 07:24
Laboratory Results
PT 26.4 Sec (11.4-14.6) H 10/28/25 07:28
INR 2.48 10/28/25 07:28
APTT 35.6 Sec (23.4-35.0) H 10/19/25 03:15
Phosphorus 2.7 mg/dl (2.5-4.5) 10/27/25 05:11
Magnesium 1.6 mg/dl (1.6-2.3) 10/28/25 07:28
Total Bilirubin 2.6 mg/dl (0.2-1.3) H 10/28/25 07:28
AST 25 U/L (14-36) 10/28/25 07:28
ALT 18 U/L (0-35) 10/28/25 07:28
Alkaline Phosphatase 70 U/L (38-126) 10/28/25 07:28
Lipase 195 U/L (23-300) 10/17/25 19:52
Vital Signs and I&O:
Vital Signs
Temp Pulse Resp BP Pulse Ox
98.8 F 80 20 105/46 99
10/30/25 11:15 10/30/25 11:15 10/30/25 11:15 10/30/25 11:15 10/30/25 11:15
I&O
10/29/25 10/30/25 10/31/25
06:59 06:59 06:59
Intake Total 850 / 850 1660 / 1660
Balance 850 / 850 1660 / 1660
Physical Exam
Physical Exam
GI: Soft, Non Distended and Non Tender
--- NOTE | 2025-10-30 13:43 | CON.ID ---
Consultation
-
Date/Time Consultation Requested: 10/30/25 11:12
Date/Time Consultation Performed: 10/30/25 13:44
Requesting Provider: Dr Escobedo
Performing Provider: Dr Vo
Reason for Consultation: SBP tx and prophylaxis recs
Chief Complaint / Past History
Chief Complaint
Nausea vomiting x 4 days
History of Present Illness
Ms Martínez is an 89-year-old female with history notable for alcohol use disorder, COPD who presented here almost two weeks ago 10/17 for nausea and vomiting x4 days. Her last drink of EtOH was two days previously 10/15. Typically drinks 1.5 L of
vodka per week. On arrival she denied fever, chills, chest pain, palpitations, cough, shortness of breath, urinary symptoms. On arrival she was initially afebrile, hypotnsive, elevated lactic acid and hypokalemia, RAMA noted. Bili 6.3, AST 172 /
ALT 50 and alk phos 154 on admission. AST/ALT elevated in 2:1 ratio. Hep A/B/C serologies negative and not immune to hep B. She was diagnosed with alcoholic hepatitis and to be in withdrawal. DF 34.8 and started on steroids for alcoholic
hepatitis. CT which showed 1.8 cm cystic mass in the head of panc with biliary dilatation, blood cultures x2 were negative, she was started on zosyn on arrival 10/17. She required phenobarbital and precedex infusion for withdrawal. QWas also
started on IV NAC. She was started on lactulose. She required vit K for elevated INR. 10/22 she developed fevers to 102.0 Repeat blood cultures ordered. Chest x-ray unremarkable. WBC count continues to improve. Influenza A, B, COVID-19 screen
negative. C diff with positive PCR but negative ag. She was started on oral vancomycin 125 mg PO QID on 10/25. Blood cultures negative so far Continue broad-spectrum antibiotic with IV Zosyn. 10/24 [facility] discussed case adn she wasw not
felt to be a candidate for OLT due to suspected infection, alcohol use and suicidal ideation. 10/25 MRI abdomen: severe hepatic cirrhosis, portal HTN, cholelithiasis, pancreatic atrophy, Two small cystic foci in the posterior head of the pancreas
suggesting small pseudocysts or side branch intraductal papillary mucinous neoplasms. No clear MRI evidence for a suspicious pancreatic mass within the limitations of motion artifact. 10/27 underwent paracentesis when IN was 2.5 to assess for SBP,
110 ccs of clear yellow fluid obtained, she did receive albumin after the paracentesis, fluid wbc 6900, 85% PMNs for 5,900 PMNs total, protein <2, albumin <1, culture was finalized negative, repeat paracentesis pursued 10/29 and only trace ascites
found, EKG 10/22: QTc 462. She reports no previous episodes of C difficile.
Past History
Additional Past Medical History:
COPD, GERD, Psychiatric (anxiety/depression) and Other (neuropathy, insomnia, ETOH and tobacco abuse restless leg syndrome , back pain
Additional Past Surgical History:
Gynecological (cervical cone surgery), Orthopedic (back surgery, right foot surgery - great toe amutation ) and Other (nasal surgery), Left wrist radius fracture repair
Allergy History:
No Known Allergies Allergy (Verified 05/05/25 15:43)
Medications Reviewed: Yes
Social History
Tobacco: Smoker
Alcohol: Binge Drinker
Drug: Other (CBD use)
Personal:
Family History
Family History: Other (sister with renal cancer, brother with hx opioid abuse)
Review of Systems
Review of Systems
Constitutional: Reports Chills; Denies Fever
EENT: Reports Sore Throat and Other (Esophageal burning)
Respiratory: Denies Cough or Trouble Breathing
Cardiac: Denies Chest Pain, Diaphoresis, Palpitations or Syncope
Abdomen/GI: Reports Abdominal Pain (Epigastric to left upper quadrant), Nausea and Vomiting; Denies Diarrhea, Constipated, Bloody Stools or Black Stools
: Denies Dysuria, Frequency, Flank Pain, Incontinence, Difficulty Voiding or Urgency
Musculoskeletal: Denies Joint Pain or Muscle Pain
Skin: Denies Itching or Rash
Neurological: Denies Dizzy, Headache or Weakness
Endocrine: Reports No Symptoms
Hematologic/Lymphatic: Reports No Symptoms
Psych: Reports Calm
Vital Signs
Temp Pulse Resp BP Pulse Ox
98.8 F 80 20 105/46 99
10/30/25 11:15 10/30/25 11:15 10/30/25 11:15 10/30/25 11:15 10/30/25 11:15
Physical Exam
Physical Exam
Constitutional: No Acute Distress
Cardiovascular: Regular Rate and S1/S2; Negative Murmur or Rub
Pulmonary: Clear and Symmetric; Negative Wheezes, Rales or Rhonchi
Gastrointestinal: Soft, Non Tender, Non Distended and Normal Bowel Sounds
Skin: Warm and Dry; Negative Rash or Jaundice
Lab / Diagnostic Study Results
10/29/25 08:26
10/30/25 07:24
Abs Immat Gran (auto) 0.1 10^3/uL (0-0.05) H 10/22/25 23:34
Absolute Neuts (auto) 4.8 10^3/uL (1.4-6.5) 10/22/25 23:34
Absolute Lymphs (auto) 1.4 10^3/uL (1.2-3.4) 10/22/25 23:34
Absolute Monos (auto) 0.9 10^3/uL (0.1-0.6) H 10/22/25 23:34
Absolute Basos (auto) 0.0 10^3/uL (0-0.2) 10/22/25 23:34
Immature Gran % 0.7 % (0-0.5) H 10/22/25 23:34
Neutrophils % 67.5 % (42.2-75.2) 10/22/25 23:34
Lymphocytes % 19.1 % (20.5-51.1) L 10/22/25 23:34
Monocytes % 12.0 % (1.7-9.3) H 10/22/25 23:34
Eosinophils % 0.3 % (0-6) 10/22/25 23:34
Basophils % 0.4 % (0-2) 10/22/25 23:34
PT 26.4 Sec (11.4-14.6) H 10/28/25 07:28
INR 2.48 10/28/25 07:28
Lactic Acid Cancelled 10/18/25 20:30
Urine WBC 6-10 /HPF (0-5) A 10/18/25 09:52
Ur Squamous Epith Cells 11-15 /LPF (Few) 10/22/25 23:39
Microbiology Results
Micro:
10/27/25 08:57 Body Fluid Culture - Final
Peritoneal Fluid No Growth After 72 Hours
Gram Stain - Final
10/25/25 12:47 Salmonella/Shigella Culture - Final
Feces/Stool No Salmonella, Shigella, Aeromonas or Plesiomonas species
isolated.
Campylobacter Culture - Final
No Campylobacter species isolated.
Shiga Toxin Test - Final
No E. coli Shiga Toxin 1 or 2 detected.
Stool Leukocytes - Final
10/22/25 23:34 Blood Culture - Final
Blood/Venous No Growth - Final Report
10/25/25 12:47 Cryptosporidium/Giardia - Final
Feces/Stool Negative for Cryptosporidium and/or Giardia Lamblia
antigens.
C. difficile GDH Antigen & Toxins - Final
C. difficile antigen positive, toxin negative.
Clostridium difficile present, but toxin not detected.
Patient may be a carrier, colonized with nontoxinogenic
strain or the level of toxin in sample is below detection
limits. This information should be used in conjunction with
the patient's clinical history.
10/18/25 11:39 Blood Culture - Final
Blood/Venous No Growth - Final Report
10/18/25 11:54 Blood Culture - Final
Blood/Venous No Growth - Final Report
10/17/25 19:19 Influenza Types A & B (QUINN) - Final
Nasal Swab Negative for Influenza A & B, NAAT
Negative results must be combined with clinical observations
and patient history.
Nucleic Acid Amplification test (NAAT)performed on the
[employer] platform.
Assessment / Plan
SBP
Decompensated Cirrhosis
Alcohol Use Disorder
RAMA - resolved 10/19
Colonization with C difficile
- blood cultures finalized negative
- 10/27 peritoneal fluid c/w SBP however culture negative in the setting of zosyn use, insufficient fluid for repeat paracentesis 10/29
- QTc acceptable at 466
- steroids were avoided due to concern for infection
- continue zosyn for 5 days post 10/27 paracentesis - through 10/31
- after completion of zosyn (end of 10/31) can transition to rifaximin 550 mg PO BID as secondary prophylaxis - lowest risk of C difficile, also ciprofloxacin interacts with duloxetine. If patient develops a recurrence of C difficile on rifaximin,
then risks of secondary prophylaxis would need to be reconsidered.
- follow up with GI
Colonization with C difficile
- planned for a 10 day course of oral vancomycin 10/25-11/03
[2025-10-30 15:26] VITALS: BP 114/66
[2025-10-30] MEDS: FLEXBUMIN 50 IV (15:27)
[2025-10-30] MEDS: MIRAPEX, GENERIC 0.5 MG PO (23:35)
[2025-10-30 23:36] VITALS: BP 121/68
[2025-10-31] MEDS: ZOSYN 50 IV ×4 (05:56→23:05)
[2025-10-31] MEDS: FIRVANQ 125 MG PO ×4 (05:57→23:05)
[2025-10-31 06:00] VITALS: BMI 23.7
[2025-10-31] MEDS: ULTRAM 50 MG PO ×3 (06:02→20:27)
[2025-10-31 07:09] VITALS: BP 129/76
[2025-10-31] MEDS: VITAMIN B1 100 MG PO ×2 (07:59→20:26)
[2025-10-31] MEDS: CYMBALTA DELAYED RELEASE 60 MG PO (07:59)
[2025-10-31] MEDS: LYRICA 400 MG PO (07:59)
[2025-10-31] MEDS: MAGNESIUM OXIDE 400 MG PO ×2 (08:00→20:27)
[2025-10-31] MEDS: LASIX 20 MG PO ×2 (08:00→17:23)
[2025-10-31] MEDS: DUPHALAC/CHRONULAC 10 GRAMS PO ×2 (08:00→20:28)
[2025-10-31] MEDS: PROTONIX 40 MG PO ×2 (08:00→20:28)
[2025-10-31] MEDS: FOLVITE 1 MG PO (08:00)
--- NOTE | 2025-10-31 13:10 | W.PN.HOSP.TC ---
Today's Communication/Plan
-
DC planning
Assessment / Plan
Assessment / Plan
#Toxic metabolic encephalopathy secondary to delirium tremens from severe alcohol withdrawal and also concern for possible hepatic encephalopathy
#Alcohol abuse
Drinks 750 mL vodka 2 bottles a week last drink was 10/15/2025
Off of phenobarbital regimen with loading dose
Off of Precedex infusion
Off of restraint
Resolved encephalopathy
Psychiatry seems to have signed off.
#Sepsis with elevated lactate
# SBP -first episode
#Lactic acidosis
#Diarrhea with C. difficile antigen positive and toxin negative
Resolved fevers
Normalized white count
Diagnostic paracentesis consistent with SBP. Culture negative so far but patient was on antibiotics.
Continue with Zosyn till 10/31 to finish 5 days and then switch to oral Rifaxamin per ID for secondary prophylaxis.
Repeat ultrasound abdomen shows trace volume of ascites not sufficient for percutaneous drainage
f/u on blood cultures remains negative. Ua benign. CXR clear.
Lactic acidosis resolved.
MRCP of the abdomen shows no evidence of choledocholithiasis or biliary ductal dilatation. Cholelithiasis noted without cholecystitis.
Much improved diarrhea-complete course of empirical 10 day p.o. vancomycin.
# Acute alcoholic hepatitis
#Hepatic cirrhosis
#Coagulopathy
#Acute on chronic alcoholic liver disease
#Hepatic encephalopathy
#Ascites
Elevated MELD score.
hep panel serologies negative
Status post IV NAC protocol time twice
Status post started on vitamin K for coagulopathy
Patient seems to be out of her encephalopathy.
Continue with lactulose to 10 mg twice daily.
INR improved
#Iatrogenic fluid overload
- Improving wt-continue the Lasix
-Follow weights
#Thrombocytopenia
-trend platelet for now. improving.
#Acute hypokalemia
Normalized
# Hyponatremia
Suspected secondary to hypervolemia
Fluid restrict
Continue with Lasix.
#Hypomagnesemia-repleted IV
#RAMA 2/2 vomiting
Creatinine 1.9/bun 38 prior creatinine 0.6 06/2024
Creatinine continues to downtrend.
Creatinine downtrending and improving
# Nonischemic myocardial injury
No active chest pain has esophageal burning only secondary to his esophagitis
Troponin has downtrended
No EKG
#Suicidal ideation
Denies any further suicidal ideation
Psych eval noted
#Hypophosphatemia
Normalized
#Esophagitis per CT
IV Protonix 40 mg now on daily-increase to twice a day
May require EGD eventually. Will defer to GI
#Chronic neuropathy
Typically takes Cymbalta 90 mg daily, Lyrica 400mg daily has not had in the past 4 days
Restart Cymbalta and Lyrica
#COPD�no acute exacerbation
Does not use any inhalers
#Nicotine abuse
Half a pack a day x 30 years
Nicotine patch 14 mg
#CBD medical use for depression
#Insomnia
Patient takes doxepin 10 mg at bedtime
DVT prophylaxis-elevated INR. Hep sc held
Full code
DC in am after IV Zosyn is done today
Portions of this chart may have been created with voice recognition software. Occasional wrong word or 'sound alike' substitutions may have occurred due to the inherent limitations of voice recognition software.
Anticipated Discharge: Within 24 hours
Subjective/Interval History
-
Date of Service: October 31, 2025
Had crampy abdo pain this am with BM but now pain free.
No nausea vomiting. Tolerating diet.
Loose stools. No fever or chills.
No shortness of breath or chest pain.
Objective Data
-
Vital Signs:
Vital Signs
Temp Pulse Resp BP Pulse Ox
98.5 F 88 20 129/76 97
10/31/25 07:09 10/31/25 07:09 10/31/25 07:09 10/31/25 07:09 10/31/25 07:09
I&O
10/30/25 10/31/25 11/01/25
06:59 06:59 06:59
Intake Total 1660 / 1660 2540 / 2540
Balance 1660 / 1660 2540 / 2540
Physical Exam
-
General: No Apparent Distress
HEENT: Moist Mucous Membranes
Respiratory: Clear to Auscultation and Non Labored Respirations; Negative Accessory Resp Muscle Use
Cardiac: Regular Rhythm and S1/S2; Negative Tachycardic
GI: Soft, Nontender, Nondistended and Normal Bowel Sounds
Neuro: AO x 3; Negative Tremors
Psych: Calm; Negative Confused
Data Reviewed
-
Labs: Labs Reviewed by me
[2025-10-31 15:04] VITALS: BP 110/64
[2025-10-31] MEDS: MYLICON 80 MG PO (20:26)
[2025-10-31] MEDS: TYLENOL 500 MG PO (20:28)
[2025-10-31 23:00] VITALS: BP 110/62
[2025-10-31] MEDS: MIRAPEX, GENERIC 0.5 MG PO (23:05)
[2025-11-01 06:00] VITALS: BMI 23.4
[2025-11-01] MEDS: FIRVANQ 125 MG PO ×2 (06:02→12:24)
[2025-11-01] MEDS: ULTRAM 50 MG PO (06:02)
[2025-11-01 07:57] VITALS: BP 130/71
[2025-11-01] MEDS: CYMBALTA DELAYED RELEASE 60 MG PO (09:18)
[2025-11-01] MEDS: LASIX 20 MG PO (09:19)
[2025-11-01] MEDS: XIFAXAN 550 MG PO (09:19)
[2025-11-01] MEDS: FOLVITE 1 MG PO (09:19)
[2025-11-01] MEDS: VITAMIN B1 100 MG PO (09:19)
[2025-11-01] MEDS: DUPHALAC/CHRONULAC 10 GRAMS PO (09:19)
[2025-11-01] MEDS: PROTONIX 40 MG PO (09:19)
[2025-11-01] MEDS: LYRICA 400 MG PO (09:22)
[2025-11-01] MEDS: MAGNESIUM OXIDE PO (09:27)
[2025-11-01 09:28] LABS: Hematocrit 31.6 % (37.0-47.0); Hemoglobin 10.6 g/dL (12.0-16.0); Mean Corp Hgb Conc. 33.5 g/dL (33.0-37.0); Mean Corpuscular Volume 94.0 fL (81.0-99.0); Platelet Count 128 10^3/uL (130-400); Red Cell Dist. Width 16.6 % (11.5-14.5)
[2025-11-01 09:56] LABS: Blood Urea Nitrogen 7 mg/dl (7-17); Calcium 9.2 mg/dl (8.4-10.2); Carbon Dioxide 24 mmol/L (22-30); Chloride 97 mmol/L (98-107); Estimated Creatinine Clearance 118 ml/min; Glucose 118 mg/dl (70-99); Potassium 3.7 mmol/L (3.5-5.1); Sodium 132 mmol/L (135-145); eGFR > 60.00
--- NOTE | 2025-11-01 11:16 | CM ---
CM reviewed pt with attending- ready for dc today
Bedside meeting with pt
Plan for home with [facility], new [facility] was previously issued and bedside
IMM verbally reviewed- copy provided
Update to [facility] liaison
[facility] order requested
Discharge Disposition-home with [facility] and [facility], parents will transport
--- NOTE | 2025-11-01 11:17 | W.PN.ID1 ---
Date of Service
Date of Service: November 01, 2025
Today's Communication
- completed 5 days of zosyn post paracentesis
- transition to rifaximin 550 mg PO BID as secondary prophylaxis - lowest risk of C difficile, also ciprofloxacin interacts with duloxetine. If patient develops a recurrence of C difficile on rifaximin, then risks of secondary prophylaxis would
need to be reconsidered.
- script sent to [facility] in [place] can be delievered to her home
- follow up with GI
Colonization with C difficile
- planned for a 10 day course of oral vancomycin 10/25-11/03
Assessment / Plan
SBP
Decompensated Cirrhosis
Alcohol Use Disorder
RAMA - resolved 10/19
Colonization with C difficile
- blood cultures finalized negative
- 10/27 peritoneal fluid c/w SBP however culture negative in the setting of zosyn use, insufficient fluid for repeat paracentesis 10/29
- QTc acceptable at 466
- steroids were avoided due to concern for infection
- completed 5 days of zosyn post paracentesis
- after completion of zosyn (end of 10/31) can transition to rifaximin 550 mg PO BID as secondary prophylaxis - lowest risk of C difficile, also ciprofloxacin interacts with duloxetine. If patient develops a recurrence of C difficile on rifaximin,
then risks of secondary prophylaxis would need to be reconsidered.
- follow up with GI
Colonization with C difficile
- planned for a 10 day course of oral vancomycin 10/25-11/03
Chief Complaint
-: C-diff and Other (SBP)
Subjective / Review of Systems
afebrile
bp stable
tolerating current therapies
no events overnight
Vital Signs / Physical Exam
Vital Signs
Vital Signs
Temp Pulse Resp BP Pulse Ox
99.1 F 101 18 130/71 97
11/01/25 07:57 11/01/25 07:57 11/01/25 07:57 11/01/25 07:57 11/01/25 07:57
Physical Exam
Constitutional: No Acute Distress
Cardiovascular: Regular Rate and S1/S2; Negative Murmur or Rub
Pulmonary: Clear and Symmetric; Negative Wheezes or Rales
Gastrointestinal: Soft, Non Tender, Non Distended and Normal Bowel Sounds
Skin: Warm and Dry; Negative Rash or Jaundice
Objective Data
Lab Data
Lab Results
11/01/25 08:38
11/01/25 08:38
PT 26.4 Sec (11.4-14.6) H 10/28/25 07:28
INR 2.48 10/28/25 07:28
APTT 35.6 Sec (23.4-35.0) H 10/19/25 03:15
Estimated Creat Clear 118 ml/min 11/01/25 08:38
Lactic Acid Cancelled 10/18/25 20:30
Total Bilirubin 2.6 mg/dl (0.2-1.3) H 10/28/25 07:28
GGT 593 U/L (12-43) H 10/18/25 02:31
AST 25 U/L (14-36) 10/28/25 07:28
ALT 18 U/L (0-35) 10/28/25 07:28
Alkaline Phosphatase 70 U/L (38-126) 10/28/25 07:28
Most recent labs reviewed.
Micro Results:
10/27/25 08:57 Body Fluid Culture - Final
Peritoneal Fluid No Growth After 72 Hours
Gram Stain - Final
10/25/25 12:47 Salmonella/Shigella Culture - Final
Feces/Stool No Salmonella, Shigella, Aeromonas or Plesiomonas species
isolated.
Campylobacter Culture - Final
No Campylobacter species isolated.
Shiga Toxin Test - Final
No E. coli Shiga Toxin 1 or 2 detected.
Stool Leukocytes - Final
10/22/25 23:34 Blood Culture - Final
Blood/Venous No Growth - Final Report
10/25/25 12:47 Cryptosporidium/Giardia - Final
Feces/Stool Negative for Cryptosporidium and/or Giardia Lamblia
antigens.
C. difficile GDH Antigen & Toxins - Final
C. difficile antigen positive, toxin negative.
Clostridium difficile present, but toxin not detected.
Patient may be a carrier, colonized with nontoxinogenic
strain or the level of toxin in sample is below detection
limits. This information should be used in conjunction with
the patient's clinical history.
10/18/25 11:39 Blood Culture - Final
Blood/Venous No Growth - Final Report
10/18/25 11:54 Blood Culture - Final
Blood/Venous No Growth - Final Report
10/17/25 19:19 Influenza Types A & B (QUINN) - Final
Nasal Swab Negative for Influenza A & B, NAAT
Negative results must be combined with clinical observations
and patient history.
Nucleic Acid Amplification test (NAAT)performed on the
[employer] platform.
Care Review
Plan reviewed with: Physician (Dr Maxwell - rosalie chacon)
--- NOTE | 2025-11-01 11:35 | W.PN.HOSP.TC ---
Today's Communication/Plan
-
po abx
alcohol cessation-once again recommended
OP GI f/u
Assessment / Plan
Assessment / Plan
#Toxic metabolic encephalopathy secondary to delirium tremens from severe alcohol withdrawal and also concern for possible hepatic encephalopathy
#Alcohol abuse
Drinks 750 mL vodka 2 bottles a week last drink was 10/15/2025
Off of phenobarbital regimen with loading dose
Off of Precedex infusion
Off of restraint
Resolved encephalopathy
Psychiatry seems to have signed off.
#Sepsis with elevated lactate
# SBP -first episode
#Lactic acidosis
#Diarrhea with C. difficile antigen positive and toxin negative
Resolved fevers
Normalized white count
Diagnostic paracentesis consistent with SBP. Culture negative so far but patient was on antibiotics.
Continue with Zosyn till 10/31 to finish 5 days and then switch to oral Rifaxamin per ID for secondary prophylaxis.
Repeat ultrasound abdomen shows trace volume of ascites not sufficient for percutaneous drainage
f/u on blood cultures remains negative. Ua benign. CXR clear.
Lactic acidosis resolved.
MRCP of the abdomen shows no evidence of choledocholithiasis or biliary ductal dilatation. Cholelithiasis noted without cholecystitis.
Much improved diarrhea-complete course of empirical 10 day p.o. vancomycin.
# Acute alcoholic hepatitis
#Hepatic cirrhosis
#Coagulopathy
#Acute on chronic alcoholic liver disease
#Hepatic encephalopathy
#Ascites
Elevated MELD score.
hep panel serologies negative
Status post IV NAC protocol time twice
Status post started on vitamin K for coagulopathy
Patient seems to be out of her encephalopathy.
Continue with lactulose to 10 mg twice daily.
INR improved
OP GI f/u
#Iatrogenic fluid overload
- Improving wt-continue the Lasix
-Follow weights
#Thrombocytopenia
-trend platelet for now. improving.
#Acute hypokalemia
Normalized
# Hyponatremia
Suspected secondary to hypervolemia
Fluid restrict
Continue with Lasix.
#Hypomagnesemia-repleted IV
#RAMA 2/2 vomiting
Creatinine 1.9/bun 38 prior creatinine 0.6 06/2024
Creatinine continues to downtrend.
Creatinine downtrending and improving
# Nonischemic myocardial injury
No active chest pain has esophageal burning only secondary to his esophagitis
Troponin has downtrended
No EKG
#Suicidal ideation
Denies any further suicidal ideation
Psych eval noted
#Hypophosphatemia
Normalized
#Esophagitis per CT
ppi
#Chronic neuropathy
Restart Cymbalta and Lyrica
#COPD�no acute exacerbation
Does not use any inhalers
#Nicotine abuse
Half a pack a day x 30 years
Nicotine patch 14 mg
#CBD medical use for depression
#Insomnia
Patient takes doxepin 10 mg at bedtime
DVT prophylaxis-elevated INR. Hep sc held
Full code
More than 30 minutes spent in discharge including
Final examination of the patient
Summarizing hospital stay
Instructions for continuing care to all relevant caregivers
Preparation of discharge records, prescriptions, and referral forms
Total time spent (in minutes): 55
Anticipated Discharge: Today
Subjective/Interval History
-
Date of Service: November 01, 2025
tolerating diet
wants to go home
Objective Data
-
Labs:
Laboratory Results
11/01/25
08:38
WBC 11.4 H
Hgb 10.6 L
Hct 31.6 L
Plt Count 128 L
Sodium 132 L
Potassium 3.7
Chloride 97 L
Carbon Dioxide 24
BUN 7
Creatinine 0.5 L
Glucose 118 H
Calcium 9.2
Vital Signs:
Vital Signs
Temp Pulse Resp BP Pulse Ox
99.1 F 101 18 130/71 97
11/01/25 07:57 11/01/25 07:57 11/01/25 07:57 11/01/25 07:57 11/01/25 07:57
I&O
10/31/25 11/01/25 11/02/25
06:59 06:59 06:59
Intake Total 2540 / 2540 1410 / 1410
Balance 2540 / 2540 1410 / 1410
Physical Exam
-
General: No Apparent Distress
HEENT: Moist Mucous Membranes
Respiratory: Clear to Auscultation and Non Labored Respirations; Negative Accessory Resp Muscle Use
Cardiac: Regular Rhythm and S1/S2; Negative Tachycardic
GI: Soft, Nontender, Nondistended and Normal Bowel Sounds
Neuro: Awake and AO x 3; Negative Tremors
Psych: Calm; Negative Confused
--- NOTE | 2025-11-01 11:38 | W.DCSUMMARY ---
Discharge Summary
Discharge Data
Date of Admission: 10/17/25
Date of Discharge: 11/01/25
-
Pending Results: No
Hospital Course
60-year-old female past medical history of mood disorder, alcohol abuse, neuropathy, COPD, tobacco abuse who is presenting from home after she did her to stop drinking. Patient was found to be in severe acute alcohol withdrawal. Patient was
started on phenobarbital taper protocol. Patient with worsening mental status and Precedex was started. Patient was evaluated during hospitalization by gastroenterology, jet mechanic, psychiatry and interventional radiology. Patient mentation
slowly improved and she completed course of phenobarbital. Precedex was eventually weaned off. Tube feedings were eventually discontinued. Mentation started to improve. Patient was also started on IV NAC for acute alcoholic hepatitis which was
eventually discontinued. Was also started on lactulose. Patient was also found to be septic on admission and was started on IV antibiotics with Zosyn. Concern for GI is a source of infection. Once patient mentation improved she underwent MRI of
the abdomen. MRCP of the abdomen shows no evidence of choledocholithiasis or biliary ductal dilatation. Cholelithiasis noted without cholecystitis. Patient underwent paracentesis. Patient was found to have culture-negative SBP. Received albumin
per gastroenterology. Patient was also found to have cirrhosis. Patient was counseled multiple times for complete alcohol cessation. Patient with diarrhea and found to have C. difficile antigen positive toxin negative was started on vancomycin.
Infectious disease consulted and recommended patient to be started on rifaximin. Infectious disease sent in the prescription to special pharmacy and they will mail in prescription to patient. Patient will be discharged home with outpatient
gastroenterology and primary doctor close follow-up.
Discharge Plan
-
Patient Disposition: Home with Home Care
Discharge Diagnosis/Procedures: Toxic metabolic encephalopathy
Delirium tremens
Sepsis
Spontaneous bacterial peritonitis
Lactic acidosis
Diarrhea with C. difficile antigen positive
Fevers
Acute alcoholic hepatitis
Hepatic cirrhosis
Coagulopathy
Ascites
Iatrogenic fluid overload
Thrombocytopenia
Acute hypokalemia
Acute kidney injury
Nonischemic myocardial injury
odynophagia with esophagitis
Condition: Fair
Diet: Low Sodium
Activity: As tolerated
Driving Restrictions: As prior to admission
Others Tests: repeat MRI of abdomen for follow up on pancreatic cyst via Heliotherapist
Instructions: Alcohol use disorder (DC)
Referrals:
Abe Davis DO [Family Provider, Family Practice] - in less than 1 week
Jean Paul Doe MD [Active, Gastroenterology] - in three to four weeks
Referral Note:
Prescriptions:
New
lactulose 10 gram/15 mL Solution
10 g PO BID 30 Days Qty: 900 0RF
vancomycin 125 mg capsule
125 mg PO QID Qty: 8 0RF
rifaximin 550 mg tablet
550 mg PO BID Qty: 60 0RF
Continued
cyanocobalamin (vitamin B-12) [Vitamin B-12] 1,000 mcg tablet
1,000 mcg PO DAILY
thiamine HCl (vitamin B1) 100 mg tablet
100 mg PO DAILY
pramipexole 0.5 mg tablet
0.5 mg PO HS
duloxetine 30 mg Capsule,Delayed Release(Dr/Ec)
60 mg PO DAILY
pregabalin [Lyrica] 100 mg Capsule
400 mg PO DAILY
Changed
pantoprazole 40 mg tablet,delayed release (DR/EC)
40 mg PO BID Qty: 60 0RF
Discharge Orders:
Discharge Patient (As Directed); Ordered 11/01/25
Ordered By: Rafael Aranda
Discharge Date and Time
Discharge Date/Time: 11/01/25 14:26
Print Language: PAKISTANI
[2025-11-01] MEDS: FIRVANQ PO (12:02)
[2025-11-01] MEDS: FLUZONE (6 mos+) 2025-2026 FORMULA 0.5 ML IM (12:15)
[2025-11-01 13:57] VITALS: BP 115/57
--- NOTE | 2025-11-01 14:34 | PTCARENOTE ---
made aware of temperature at time of d/c. MD musa'd patient to be dsicharged. Patient asymptomatic.
== END 2025-11-01 14:26 | disposition home health service (06) | DRG 871 ==
LOC: 2 NORTH 23:10
PROVIDERS: Clinical Nurse Specialist Family Health; Internal Medicine; Nurse Practitioner; Nurse Practitioner Adult Health; Nurse Practitioner Family; Nurse Practitioner Gerontology; Nurse Practitioner Primary Care; Radiology Vascular & Interventional Radiology; Specialist; Student in an Organized Health Care Education/Training Program; ADMITTING PHYSICIAN Hospitalist; ATTENDING PHYSICIAN Hospitalist; CONSULT PHYSICIAN Psychiatry & Neurology Psychiatry; CONSULT PHYSICIAN Student in an Organized Health Care Education/Training Program; EMERGENCY PHYSICIAN Student in an Organized Health Care Education/Training Program; FAMILY PHYSICIAN Family Medicine; OTHER PHYSICIAN Internal Medicine; OTHER PHYSICIAN Internal Medicine Gastroenterology
PROC: 0W9G3ZZ Drainage of Peritoneal Cavity, Percutaneous Approach (ICD-10-PCS; 2025-10-27)
PROC: 3E02340 Introduction of Influenza Vaccine into Muscle, Percutaneous Approach (ICD-10-PCS; 2025-11-01)
DX: A41.9 Sepsis, unspecified organism (principal); G92.8 Other toxic encephalopathy; K65.2 Spontaneous bacterial peritonitis; F10.231 Alcohol dependence with withdrawal delirium; E87.20 Acidosis, unspecified; A04.72 Enterocolitis due to Clostridium difficile, not specified as recurrent; D68.9 Coagulation defect, unspecified; N17.9 Acute kidney failure, unspecified; I5A Non-ischemic myocardial injury (non-traumatic); E87.1 Hypo-osmolality and hyponatremia; R45.851 Suicidal ideations; K70.11 Alcoholic hepatitis with ascites; E87.70 Fluid overload, unspecified; D69.6 Thrombocytopenia, unspecified; K70.31 Alcoholic cirrhosis of liver with ascites; E87.6 Hypokalemia; K21.00 Gastro-esophageal reflux disease with esophagitis, without bleeding; R13.10 Dysphagia, unspecified; R65.20 Severe sepsis without septic shock; F32.A Depression, unspecified; F41.9 Anxiety disorder, unspecified; K86.89 Other specified diseases of pancreas; I95.9 Hypotension, unspecified; G62.9 Polyneuropathy, unspecified; J44.9 Chronic obstructive pulmonary disease, unspecified; F17.210 Nicotine dependence, cigarettes, uncomplicated; R74.01 Elevation of levels of liver transaminase levels; G47.00 Insomnia, unspecified; K76.82 Hepatic encephalopathy; E78.00 Pure hypercholesterolemia, unspecified; E86.0 Dehydration; R94.31 Abnormal electrocardiogram [ECG] [EKG]; K80.20 Calculus of gallbladder without cholecystitis without obstruction; E83.42 Hypomagnesemia; E83.39 Other disorders of phosphorus metabolism; G25.81 Restless legs syndrome; Z11.52 Encounter for screening for COVID-19; Z63.4 Disappearance and death of family member; Z23 Encounter for immunization
CPT/HCPCS: 49083; 71045; 71046; 73030; 74018; 74176; 74183; 76705; 80048; 80053; 80061; 80306; 80307; 81003; 81015; 82010; 82042; 82077; 82140; 82248; 82805; 82977; 83605; 83690; 83735; 84100; 84157; 84484; 85025; 85027; 85610; 85730; 86704; 86705; 86706; 86708; 86709; 86803; 87015; 87040; 87045; 87046; 87070; 87205; 87324; 87328; 87329; 87340; 87427; 87449; 87502; 87811; 88112; 88305; 89051; 89055; 90656; 92526; 92610; 93005; 93971; 96365; 96366; 96375; 97110; 97116; 97163; 97167; 97530; 97535; 99285; A9575; G0008; J0132; J2358; J7030; P9047